=== PATIENT | female | born 1975 | race African-American/Black ===

== ENCOUNTER 2017-08-19 08:57 | Emergency (ER) | payer MEDICAID, SELFPAY ==
[~2017-08-19] VITALS: Ht 172.7 cm; Wt 88.5 kg
[~2017-08-19 08:57] MED LIST: IBUPROFEN600 MG ORAL; NKM
[2017-08-19 09:02] VITALS: BP 149/105
[2017-08-19] MEDS ORDERED: ADULT WAL-100 MG/5 M ORAL (09:31)
[2017-08-19 09:36] VITALS: BP 149/105
--- NOTE | 2017-08-26 01:08 | Emergency Room Report ---
History of Present Illness General Chief Complaint: Flu Like Symptoms Source: Patient Present Illness HPI Patient is a 41 yo female who presented after several days of nonproductive cough and congestion. She reports having intermittent dry cough worse at night , associated with loss of voice and nasal congestion. She report gradual onset and denies any fever or hemoptysis or chest pain. She denies vomiting or diarrhea. Allergies: Coded Allergies: No Known Allergies (Verified Allergy, Mild, 01/17/09) Patient History Past Medical History: see triage record Nursing Documentation-PMH Past Medical History: No Stated History Review of Systems All Other Systems: negative except mentioned in HPI Physical Exam Vital Signs Date Time Temp Pulse Resp B/P (MAP) Pulse Ox O2 Delivery O2 Flow Rate FiO2 08/19/17 09:02 98.6 92 20 149/105 99 Room Air General Appearance: well appearing, no apparent distress, GCS 15 Head: normocephalic, atraumatic Eyes: bilateral eye normal inspection ENT: hearing grossly normal, uvula midline, other - hoarse voice, no stridor Neck: full range of motion, supple Respiratory: no respiratory distress, speaking full sentences Musculoskeletal: no calf tenderness Neurologic: normal gait Psychiatric: mood/affect normal Skin: no rash Medical Decision Making Diagnostic Impression: Primary Impression: Laryngitis with influenza, acute ER Course Patient presented for nonproductive cough. Differential diagnosis included but was not limited to influenza, tracheitis, pertussis, epiglottitis among others. Patient appears to have a benign exam. She appears to have an influenza like illness. She does not appear to require antiviral medications or antibiotics. She was given prescription for cough medications. Last Vital Signs Date Time Temp Pulse Resp B/P (MAP) Pulse Ox O2 Delivery O2 Flow Rate FiO2 08/19/17 09:36 98.6 92 20 149/105 99 Room Air Disposition: HOME, SELF-CARE Condition: Stable Scripts Guaifenesin* (ADULT WAL-TUSSIN*) 100 Mg/5 Ml Liquid 10 ML ORAL Q4H for For Cough, #150 ML Prov: Brandon Mccracken 08/19/17 Patient Instructions: LaryngBrandon Moses Aug 26, 2017 01:08
== END 2017-08-19 09:38 | disposition home or self-care (01) ==
LOC: EMR 09:26
DX: J04.0 Acute laryngitis (principal); J11.1 Influenza due to unidentified influenza virus with other respiratory manifestations
CPT/HCPCS: 99283

== ENCOUNTER 2018-09-24 15:18 | Emergency (ER) | payer MEDICAID ==
[~2018-09-24] VITALS: Ht 167.6 cm; Wt 88.5 kg
[~2018-09-24 15:18] MED LIST changes: +ADULT WAL-100 MG/5 M ORAL
[2018-09-24] MEDS ORDERED: LEXAPRO10 MG ORAL (15:32)
--- NOTE | 2018-09-24 15:32 | NUR ---
ED Nurse Note: A/OX4. AMBULATED IN TO ER DUE TO CONSTIPATION. LAST BM WAS TODAY-SMALL AND HARD STOOL. DENIES BLOODY STOOL. PT STATES THAT SHE IS DRINKING ENOUGH WATER AND ATTEMPTED TO RELIEVE SYMPTOMS WITH ENEMA BUT DID NOT HELP.
[2018-09-24 15:35] VITALS: BP 137/94
[2018-09-24] MEDS ORDERED: Lactulose 20gm/30ml UDC ORAL ONE (16:00)
[2018-09-24] MEDS ORDERED: Magnesium Citrate Liq Btl ORAL ONE (16:00)
--- NOTE | 2018-09-24 17:20 | NUR ---
ED Nurse Note: PER PT, SHE HAS NOT HAVE BOWEL MOVEMENT YET BUT WANTS TO BE DISCHARGED WITH PRESCRIPTIONS. NOTIFIED MEIR NIEVES.
--- NOTE | 2018-09-24 17:27 | Emergency Room Report ---
History of Present Illness General Chief Complaint: Constipation Source: Patient Present Illness Allergies: Coded Allergies: No Known Allergies (Verified Allergy, Mild, 01/17/09) Patient History Last Menstrual Period: unknown Nursing Documentation-[facility] Past Medical History: No History, Except For History Of Psychiatric Problem: Yes - anxiety, depression Physical Exam Vital Signs Date Time Temp Pulse Resp B/P (MAP) Pulse Ox O2 Delivery O2 Flow Rate FiO2 09/24/18 15:29 99.0 94 16 137/94 97 Room Air Medical Decision Making PA Attestation Dr. Mccracken is my supervising Physician whom patient management has been discussed with. Diagnostic Impression: Primary Impression: Constipation Qualified Codes: K59.00 - Constipation, unspecified ER Course abdominal pain Last Vital Signs Date Time Temp Pulse Resp B/P (MAP) Pulse Ox O2 Delivery O2 Flow Rate FiO2 09/24/18 15:35 99.0 94 16 137/94 97 Room Air Disposition: HOME, SELF-CARE Condition: Stable Departure Forms: Return to Work Return to Work Date: Sep 29, 2018 Work Restrictions: None Other Restrictions: May return Sooner if Symptoms have resolved. Return to Full Activity: Sep 24, 2018 Patient Instructions: Constipation, Adult Additional Instructions: Take medications as directed. Follow up with a Primary Care Provider in 72 hours, even if your symptoms have resolved. --Please review list of primary care clinics, if you do not already have a primary care provider Return sooner to ED if new symptoms occur, or current symptoms become worse. - Please note that this Emergency Department Report was dictated using Lixto Softwareuser experience manager technology software, occasionally this can lead to erroneous entry secondary to interpretation by the dictation equipment. Tracey Hart Sep 24, 2018 17:27
[2018-09-24] MEDS ORDERED: SIMETHICONE80 MG ORAL (17:31)
[2018-09-24] MEDS ORDERED: FLEET ENEMA133 ML RECTAL (17:31)
[2018-09-24] MEDS ORDERED: LACTULOSE20 GM/301 ORAL (17:31)
[2018-09-24 17:42] VITALS: BP 137/94
--- NOTE | 2018-09-24 17:43 | NUR ---
ER Nurse Note: A/OX4. PT IS CLEARED BY MEIR NIEVES. DC INSTRUCTION AND PRESCRIPTIONS GIVEN, PT VERBALIZED UNDERSTSANDING. IV/ID WRISTBAND REMOVED. ALL BELONGINGS TAKEN BY PT. DENIES ANY PAIN AT THIS TIME. PT AMBULATED OUT OF ER WITH STEADY GAIT.
== END 2018-09-24 17:45 | disposition home or self-care (01) ==
LOC: EMR 17:00
DX: K59.00 Constipation, unspecified (principal); F41.9 Anxiety disorder, unspecified; F32.9 Major depressive disorder, single episode, unspecified
CPT/HCPCS: 99282

== ENCOUNTER 2019-01-06 12:34 | Emergency (ER) | payer MEDICAID ==
[~2019-01-06] VITALS: Ht 172.7 cm; Wt 90.7 kg
[~2019-01-06 12:34] MED LIST changes: +FLEET ENEMA133 ML RECTAL; +LACTULOSE20 GM/301 ORAL; +LEXAPRO10 MG ORAL; +SIMETHICONE80 MG ORAL
[2019-01-06 12:40] VITALS: BP 149/90
--- NOTE | 2019-01-06 12:40 | NUR ---
ED Nurse Note: Patient walked in to ER c/o severe headache 05/19 with high BP. Pt's systolic was 145 and per pt, that is abnormally high for her. pt aao x4 and ambulatory. calm and cooperative. skin clean and intact. pt is on gown and gambling monitor.
[2019-01-06] MEDS ORDERED: Morphine Sulfate 4mg/ml Inj (IV USE ONLY) IVP ONE (13:00)
[2019-01-06] MEDS ORDERED: DiphenhydrAMINE 50mg/ml Inj IVP ONE (13:00)
[2019-01-06] MEDS ORDERED: Ketorolac 30mg Inj IV ONE (13:00)
--- NOTE | 2019-01-06 13:00 | NUR ---
ED Nurse Note: pt ambulated to bathroom with steady gait.
--- NOTE | 2019-01-06 13:30 | Emergency Room Report ---
History of Present Illness General Chief Complaint: Headache Source: Patient Present Illness HPI Patient has a history of hypertension which is managed by diet. Patient developed mild onset of headache which progressively became worse last night around 2:00 in the morning. Then progressively became worse. Patient states that the headache is intense sensation around her head bilateral around the caodaism areas. It is associate with some nausea but no vomiting. Denies any diarrhea. Denies any fevers or chills. Patient denies any neck stiffness. Patient states that she has not had a prior work-up before. And this headache is worse than usual. She will get headaches in the past but would never last this long. Symptoms again noted to be moderate to high at a severe. Patient also states that she feels that her blood pressure is elevated. No other modifying factors. No other associated signs and symptoms. No other complaints were noted. Allergies: Coded Allergies: No Known Allergies (Verified Allergy, Mild, 01/17/09) Patient History Past Medical History: HTN Past Surgical History: none Pertinent Family History: none Social History: Denies: smoking, alcohol use, drug use Last Menstrual Period: 12/2018 Now: No Reviewed Nursing Documentation: PMH: Agreed; PSxH: Agreed Nursing Documentation-PMH Past Medical History: No History, Except For Hx Hypertension: Yes Review of Systems All Other Systems: negative except mentioned in HPI Physical Exam Vital Signs Date Time Temp Pulse Resp B/P (MAP) Pulse Ox O2 Delivery O2 Flow Rate FiO2 01/06/19 12:40 98.4 96 20 142/99 (113) 97 Room Air Sp02 EP Interpretation: reviewed, normal General Appearance: alert, moderate distress Head: atraumatic Eyes: bilateral eye normal inspection ENT: normal ENT inspection, hearing grossly normal, normal voice Neck: normal inspection, full range of motion, supple, no bony tend Respiratory: normal inspection, lungs clear, normal breath sounds, no respiratory distress, no retraction, no wheezing Cardiovascular #1: regular rate, rhythm, no edema Gastrointestinal: normal inspection, normal bowel sounds, non tender, soft, no guarding, no hernia Genitourinary: no CVA tenderness Musculoskeletal: normal inspection, back normal, normal range of motion Neurologic: normal inspection, alert, responsive, speech normal Psychiatric: normal inspection, judgement/insight normal, anxious Skin: normal inspection, normal color, no rash Medical Decision Making Diagnostic Impression: Primary Impression: Headache Additional Impression: Hypertension ER Course Patient presents to the emergency department today complaint of acute onset severe headache that is different than usual. Differential diagnoses include acute intracranial injury, hypertensive emergency, hypertensive urgency just name a few. Given the severity of the patient's presentation I felt this is a highly complex patient. This patient required extensive workup. Head CT was performed because of patient's headache that was atypical. This was not patient's usual headache. Patient's never had any prior work-up before furthermore headache was associated hypertension there is concern for intracranial injury. Because of this a head CT was performed. Head CT was noted be negative. Patient was given pain medication with significant improvement in symptoms. There have feel the patient be discharged home. Patient is advised to follow up with primary doctor in 2-3 days and return the emergency room for any worsening symptoms and as needed. Labs Test 01/06/19 13:10 White Blood Count 4.3 K/UL (4.8-10.8) Red Blood Count 4.34 M/UL (4.20-5.40) Hemoglobin 11.4 G/DL (12.0-16.0) Hematocrit 37.0 % (37.0-47.0) Mean Corpuscular Volume 85 FL (80-99) Mean Corpuscular Hemoglobin 26.4 PG (27.0-31.0) Mean Corpuscular Hemoglobin Concent 31.0 G/DL (32.0-36.0) Red Cell Distribution Width 13.1 % (11.6-14.8) Platelet Count 321 K/UL (150-450) Mean Platelet Volume 6.6 FL (6.5-10.1) Neutrophils (%) (Auto) 42.1 % (45.0-75.0) Lymphocytes (%) (Auto) 44.9 % (20.0-45.0) Monocytes (%) (Auto) 10.4 % (1.0-10.0) Eosinophils (%) (Auto) 1.1 % (0.0-3.0) Basophils (%) (Auto) 1.4 % (0.0-2.0) Urine HCG, Qualitative Negative (NEGATIVE) Sodium Level 138 MMOL/L (136-145) Potassium Level 3.6 MMOL/L (3.5-5.1) Chloride Level 104 MMOL/L (98-107) Carbon Dioxide Level 29 MMOL/L (21-32) Anion Gap 5 mmol/L (5-15) Blood Urea Nitrogen 10 mg/dL (7-18) Creatinine 0.8 MG/DL (0.55-1.30) Estimat Glomerular Filtration Rate > 60 mL/min (>60) Glucose Level 94 MG/DL (74-106) Calcium Level 9.0 MG/DL (8.5-10.1) Total Bilirubin 0.5 MG/DL (0.2-1.0) Aspartate Amino Transf (AST/SGOT) 25 U/L (15-37) Alanine Aminotransferase (ALT/SGPT) 32 U/L (12-78) Alkaline Phosphatase 75 U/L (46-116) Total Protein 8.2 G/DL (6.4-8.2) Albumin 3.5 G/DL (3.4-5.0) Globulin 4.7 g/dL Albumin/Globulin Ratio 0.7 (1.0-2.7) CT/MRI/US Diagnostic Results CT/MRI/US Diagnostic Results : Imaging Test Ordered: Head CT: Negative Last Vital Signs Date Time Temp Pulse Resp B/P (MAP) Pulse Ox O2 Delivery O2 Flow Rate FiO2 01/06/19 12:40 98.4 96 20 142/99 (113) 97 Room Air Status: improved Disposition: HOME, SELF-CARE Condition: Stable Scripts Ibuprofen* (MOTRIN*) 600 Mg Tablet 600 MG ORAL Q8H PRN for For Pain, #20 TAB 0 Refills Prov: Delvin Rodarte MD 01/06/19 Hydrocodone Bit/Acetaminophen 5-325* (NORCO 5-325*) 1 Each Tablet 1 TAB ORAL Q6H PRN for For Pain, #20 TAB 0 Refills Prov: Delvin Rodarte MD 01/06/19 Delvin Rodarte MD January 06, 2019 13:30
--- NOTE | 2019-01-06 13:30 | NUR ---
ED Nurse Note: pt went down for CT in stable condition.
--- NOTE | 2019-01-06 13:44 | NUR ---
ED Nurse Note: pt came back from CT in stable condition.
[2019-01-06 13:54] LABS: BASOPHILS % (AUTO) 1.4 % (0.0-2.0); EOSINOPHILS % (AUTO) 1.1 % (0.0-3.0); HEMOGLOBIN 11.4 G/DL (12.0-16.0); LYMPHOCYTES % (AUTO) 44.9 % (20.0-45.0); MEAN CORPUSCULAR VOLUME 85 FL (80-99); MONOCYTES % (AUTO) 10.4 % (1.0-10.0); NEUTROPHILS % (AUTO) 42.1 % (45.0-75.0); PLATELET COUNT 321 K/UL (150-450); RED BLOOD COUNT 4.34 M/UL (4.20-5.40); RED CELL DISTRIBUTION WIDTH 13.1 % (11.6-14.8); WHITE BLOOD COUNT 4.3 K/UL (4.8-10.8)
--- NOTE | 2019-01-06 14:02 | Diagnostic Imaging Report ---
Indications: Headache Technique: Spiral acquisitions obtained through the brain. Angled axial and coronal 5 x 5 mm slices were reconstructed. Total dose length product 1390.16 mGycm. CTDI vol(s) 70.38 mGy. Dose reduction achieved using automated exposure control Comparison: None. Findings: No acute intracranial hemorrhage or edema. No mass effect nor midline shift. Normal parisi-white differentiation. Normal-sized ventricles and extra axial CSF spaces. There is minimal periventricular deep white matter low-attenuation, likely chronic microvascular ischemic changes. Visualized orbits are unremarkable. There is ethmoid and sphenoid sinus disease. The mastoids are clear Impression: Negative for acute intracranial bleed or mass effect Minimal periventricular deep white matter low-attenuation, likely chronic microvascular ischemic change The CT scanner at [facility] is accredited by the [employer] and the scans are performed using protocols designed to limit radiation exposure to as low as reasonably achievable to attain images of sufficient resolution adequate for diagnostic evaluation.
[2019-01-06 14:17] LABS: ANION GAP 5 mmol/L (5-15); BLOOD UREA NITROGEN 10 mg/dL (7-18); CARBON DIOXIDE 29 MMOL/L (21-32); CHLORIDE 104 MMOL/L (98-107); CREATININE 0.8 MG/DL (0.55-1.30); POTASSIUM 3.6 MMOL/L (3.5-5.1); SODIUM 138 MMOL/L (136-145)
[2019-01-06 14:22] LABS: ALANINE AMINOTRANSFERASE 32 U/L (12-78); ALBUMIN 3.5 G/DL (3.4-5.0); ALBUMIN/GLOBULIN RATIO 0.7 (1.0-2.7); ALKALINE PHOSPHATASE 75 U/L (46-116); ASPARTATE AMINO TRANSFERASE 25 U/L (15-37); BILIRUBIN,TOTAL 0.5 MG/DL (0.2-1.0)
[2019-01-06] MEDS ORDERED: NORCO 5-325 TA1 EACH ORAL (14:33)
[2019-01-06] MEDS ORDERED: IBUPROFEN600 MG ORAL (14:34)
[2019-01-06 14:49] VITALS: BP 144/75
--- NOTE | 2019-01-06 14:50 | NUR ---
ER DISCHARGE NOTE: Patient is cleared to be discharged per ERMD, pt is aox4, on room air, with stable vital signs. pt was given dc and prescription instructions, pt was able to verbalize understanding, pt id band and iv site removed without complications. pt is able to ambulate with steady gait. pt took all belongings.
== END 2019-01-06 14:50 | disposition home or self-care (01) ==
LOC: EMR 13:29
DX: R51 Headache (principal); I10 Essential (primary) hypertension
CPT/HCPCS: 36415; 70450; 80053; 81025; 85025; 96374; 96375; 99284; J1200; J1885; J2270

== ENCOUNTER 2019-01-25 08:38 | Emergency (ER) | payer MEDICAID ==
[~2019-01-25] VITALS: Ht 172.7 cm; Wt 92.1 kg
[~2019-01-25 08:38] MED LIST changes: +NORCO 5-325 TA1 EACH ORAL
[2019-01-25 09:00] VITALS: BP 128/91
[2019-01-25] MEDS ORDERED: Gadavist 7.5mMol/7.5ml vial IV PRN (09:45)
--- NOTE | 2019-01-25 09:51 | Emergency Room Report ---
History of Present Illness General Chief Complaint: Earache Source: Patient, Medical Record Present Illness HPI The patient states that about 3 weeks ago she developed a sensation of pulsing in her left ear. She states that the symptoms are ongoing. She states that sounds like her pulse. She denies symptoms in her right ear. She does not believe she is having hearing loss but states she feels like she is hearing more from the right ear rather than the left. She denies headache. She did get seen for this previously and underwent a CT scan of her head which was unremarkable. She denies recent illness. She denies cough or congestion. She denies sore throat. She denies seasonal allergies. She denies vertigo. She denies nausea or vomiting. She denies trauma. She has no other complaints. Allergies: Coded Allergies: No Known Allergies (Verified Allergy, Mild, 01/17/09) Patient History Past Medical History: see triage record, HTN Social History: Denies: smoking, alcohol use, drug use Last Menstrual Period: 01/23/19 Reviewed Nursing Documentation: PMH: Agreed; PSxH: Agreed Nursing Documentation-PMH Past Medical History: No History, Except For Hx Hypertension: Yes History Of Psychiatric Problem: Yes - depression Review of Systems All Other Systems: negative except mentioned in HPI Physical Exam Vital Signs Date Time Temp Pulse Resp B/P (MAP) Pulse Ox O2 Delivery O2 Flow Rate FiO2 01/25/19 08:40 98.1 93 18 131/92 (105) 97 Room Air Sp02 EP Interpretation: reviewed, normal General Appearance: no apparent distress, alert, GCS 15, non-toxic Head: normocephalic, atraumatic Eyes: bilateral eye normal inspection, bilateral eye PERRL ENT: hearing grossly normal, normal pharynx, no angioedema, normal voice, TMs + canals normal, moist mucus membranes Neck: full range of motion, supple/symm/no masses Respiratory: no respiratory distress, no retraction, no accessory muscle use, speaking full sentences Cardiovascular #1: regular rate, rhythm, no edema Rectal: deferred Musculoskeletal: back normal, gait/station normal, normal range of motion, non- tender Neurologic: alert, oriented x3, responsive, motor strength/tone normal, sensory intact, speech normal Psychiatric: judgement/insight normal, memory normal, mood/affect normal, no suicidal/homicidal ideation Skin: normal color, no rash, warm/dry, well hydrated Medical Decision Making Diagnostic Impression: Primary Impression: Tinnitis Additional Impressions: Arterial bruit Venous hum ER Course This patient has a history consistent with tinnitus versus arterial bruit versus venous hum. The patient has had ongoing symptoms for the past 3 weeks without relief. The patient already under went a CT of the head previously. Given the ongoing symptoms and the pulsatile nature of the symptoms, I am concerned about a vascular etiology. Differential diagnosis is extensive to include an AV fistula, and arterial bruit, a venous hum to name just a few. Therefore, I decided to obtain an MRI/MRA brain to further evaluate and this showed .... Last Vital Signs Date Time Temp Pulse Resp B/P (MAP) Pulse Ox O2 Delivery O2 Flow Rate FiO2 01/25/19 09:00 98.1 92 18 128/91 97 Room Air Referrals: NON PHYSICIAN (PCP) Cherelle Tobias DO Jan 25, 2019 09:50
[2019-01-25 15:00] VITALS: BP 128/91
--- NOTE | 2019-01-25 15:24 | Diagnostic Imaging Report ---
Indication: Pulsatile tinnitus in the left ear Technique: sagittal T1 fast spin echo, axial T1 and T2 FLAIR PROPELLER, axial T2 FS PROPELLER,, coronal T2 FSE, T2* GRE, axial diffusion weighted images, post contrast axial and coronal T1 FLAIR PROPELLER images. ADC and exponential ADC maps generated Comparison: Reference made to head CT dated 01/06/2019 Findings: Empty sella incidentally noted.. No abnormal areas of restricted diffusion to suggest acute infarction. No acute hemorrhage or edema. No mass effect nor midline shift. No abnormal contrast enhancement. Normal size ventricles and extra axial CSF spaces. Visualized orbits and sinuses are unremarkable. . Impression: Negative
--- NOTE | 2019-01-25 15:29 | Diagnostic Imaging Report ---
Indications: Left ear pulsatile tinnitus Technique: 3D [id number] images obtained through the big sandy of [place]. MIP reconstructions were generated in multiple rotational projections Comparison: none Findings: Normal caliber distal internal carotid arteries. No evidence of carotid canal stenosis is demonstrated. No abnormal vasculature to suggest vascular malformation demonstrated. Normal caliber bilateral M1 segments, proximal M2 branches, A1 segments. Asymmetric A2 segments, with a dominant single midline A2 segment and a smaller left A2 segment. Patent anterior to indicating artery. Codominant patent distal vertebral arteries. Patent nonstenotic basilar artery. Patent bilateral superior cerebellar arteries, PICA is, P1 segments and proximal posterior cerebral artery branches. Large patent right posterior to indicating artery is demonstrated. Questionable patency of the left posterior commuting artery. Patent ophthalmic arteries. Impression: Essentially unremarkable, no evidence of significant cervical vascular insufficiency. No findings to suggest etiology of stated clinical history of pulsatile tinnitus demonstrated. Variant big sandy of [place] and anterior cerebral artery anatomy as described
--- NOTE | 2019-01-25 15:37 | Diagnostic Imaging Report ---
Indication: Left ear pulsatile tinnitus Technique: Axial and coronal T1 fast spin echo, axial and coronal T 2 fast spin-echo, axial 3-D FIESTA, post contrast axial and coronal T1 fast spin echo thin slice images through the temporal bones Comparison: Brain MRI of earlier the same day Findings: Normal external auditory canal. Normal middle ear and inner ear structures. Slight high T1 and T2 signal in the petrous apex suppresses on the FIESTA images, presumably represents some fatty marrow within the petrous apex. No contrast enhancing lesion. Unremarkable internal auditory canals. The vascular flow voids are preserved. Empty sella incidentally noted. The optic globes and retrobulbar orbits are unremarkable Impression: Essentially unremarkable exam. No findings demonstrated to suggest etiology of stated clinical history of pulsatile tinnitus.
== END 2019-01-25 14:58 | disposition home or self-care (01) ==
LOC: EMR 09:05
DX: H93.12 Tinnitus, left ear (principal); R09.89 Other specified symptoms and signs involving the circulatory and respiratory systems; I10 Essential (primary) hypertension; F32.9 Major depressive disorder, single episode, unspecified
CPT/HCPCS: 70543; 70544; 70553; 99284; A9585

== ENCOUNTER 2019-04-21 07:58 | Emergency (ER) | payer SELFPAY ==
[~2019-04-21] VITALS: Ht 172.7 cm; Wt 93.0 kg
[2019-04-21 08:17] VITALS: BP 151/99
--- NOTE | 2019-04-21 08:18 | NUR ---
ED Nurse Note: Patient walked in to ER with a son from home due to Lt earache 03/19 which started 3 days ago. pt denied swimming. Patient is alert and oriented x4 and ambulatory. Skin clean and intact. Calm and cooperative. No acute distress noted at this moment.
--- NOTE | 2019-04-21 08:25 | NUR ---
ED Nurse Note: ERMD at bedside.
[2019-04-21] MEDS ORDERED: DEBROX15 M1 BOTH EARS (08:33)
--- NOTE | 2019-04-21 08:33 | Emergency Room Report ---
History of Present Illness General Chief Complaint: Earache Source: Patient Present Illness HPI Disclaimer: Please note that this report is being documented using [employer] technology. This can lead to erroneous entry secondary to incorrect interpretation by the dictating instrument. HPI: 43-year-old otherwise healthy female presents for evaluation of ear pain on the left side. Symptoms have been present for several days. She denies any hearing changes or tinnitus. Denies vertiginous symptoms. She states she often has ear pain but has never lasted this long. Denies any recent swimming or exposure to water. Denies any drainage from the ear. Notes it as a pressure and a throbbing sensation. Denies other symptoms such as fever, chills , nasal congestion, postnasal drip, sore throat, cough, wheezing, vomiting, diarrhea or skin rash. Her son is sick with an upper respiratory illness and she brought him in for evaluation to the emergency department today as well. She states she has had problems with cerumen impaction in the past and has had her ears flushed by her PMD. Does not follow regularly with ENT PMH: Denies PSH: See chart Allergies: See chart Social Hx: Denies Allergies: Coded Allergies: No Known Allergies (Verified Allergy, Mild, 01/17/09) Patient History Last Menstrual Period: 04/12/19 Now: No Nursing Documentation-PMH Past Medical History: No History, Except For Hx Hypertension: Yes History Of Psychiatric Problem: Yes Review of Systems All Other Systems: negative except mentioned in HPI Physical Exam Vital Signs Date Time Temp Pulse Resp B/P (MAP) Pulse Ox O2 Delivery O2 Flow Rate FiO2 04/21/19 08:10 98.2 87 18 151/99 (116) 97 Room Air General: Awake and alert, no acute distress HEENT: NC/AT. EOMI. the external auditory canals are both nonedematous, no erythematous and no purulent drainage. Tympanic membranes are difficult to fully visualize due to significant cerumen in the external canal. The parts that are visible are pearly parisi, nonbulging. No significant unilateral findings. Resp: Normal work of breathing. MSK: Normal tone and bulk. Moving all extremities. No obvious deformity. Neuro: Awake and alert. Mentating appropriately. Medical Decision Making Diagnostic Impression: Primary Impression: Earache symptoms in left ear Additional Impression: Wax in ear ER Course 43-year-old female presents for evaluation of left ear pain and pressure for several days. Tympanic members do not show signs of obvious acute infection. She does have significant cerumen in the external canals and will be prescribed Debrox to clean out the ears. She should follow-up with her PMD who may refer her to an ENT if this persists. No indication for acute antibiotic treatment at this time. She will be discharged home. Last Vital Signs Date Time Temp Pulse Resp B/P (MAP) Pulse Ox O2 Delivery O2 Flow Rate FiO2 04/21/19 08:17 98.2 18 151/99 97 Room Air 04/21/19 08:10 87 Disposition: HOME, SELF-CARE Condition: Stable Scripts Carbamide Peroxide (DEBROX) 15 Ml Drops 5 DROP BOTH EARS TWICE A DAY for 4 Days, ML 0 Refills Prov: Vladimir Abraham MD 04/21/19 Referrals: [facility] Patient Instructions: Earache Additional Instructions: Please use the Debrox kit prescribed to you to remove the excess wax from the outer ears. If your ear pain does not improve after Tylenol and Motrin over the next few days please follow-up with your primary doctor for reevaluation. Return to the emergency department any significant fevers, worsening pain, changes in your hearing or any other sudden changes in your health Vladimir Abraham MD Apr 21, 2019 08:32
[2019-04-21 08:37] VITALS: BP 151/99
--- NOTE | 2019-04-21 08:37 | NUR ---
ED Nurse Note: Pt cleared by health care Provider for discharge. DC instructions/prescription was given and explained to pt and verbalized understanding of teachings. All medical deviecs such as ID band removed. Pt is AAO x4, ambulatory and left with all personal belongings.
== END 2019-04-21 09:00 | disposition home or self-care (01) ==
LOC: EMR 09:00
DX: H61.22 Impacted cerumen, left ear (principal); H92.02 Otalgia, left ear; I10 Essential (primary) hypertension
CPT/HCPCS: 99282

== ENCOUNTER 2020-10-02 09:06 | Inpatient (IN) | payer MEDICAID ==
[~2020-10-02] VITALS: Ht 170.2 cm; Wt 900.8 kg
[~2020-10-02 09:06] MED LIST changes: +DEBROX15 M1 BOTH EARS
--- NOTE | 2020-10-02 09:51 | NUR ---
Patient presented to the ER with c/o back pain which started yesterday morning at 9am and has gotten progressively worse. The pain is not steady but intermittent with ranging pain "5-12 in severity." AAOX4. Independently ambulatory. She has no adverse medical history. NKA. No deficits noted to extremities. " I feel like there is something wrong with my body!"
[2020-10-02 10:03] LABS: APPEARANCE,URINE CLEAR; BASOPHILS % (AUTO) 0.9 % (0.0-2.0); BILIRUBIN, URINE NEGATIVE (NEGATIVE); EOSINOPHILS % (AUTO) 0.3 % (0.0-3.0); GLUCOSE, URINE (UA) NEGATIVE (NEGATIVE); HEMATOCRIT 34.7 % (37.0-47.0); HEMOGLOBIN 10.1 G/DL (12.0-16.0); KETONES,URINE NEGATIVE (NEGATIVE); LEUKOCYTE ESTERASE ,URINE 2+ (NEGATIVE); MEAN CORPUSCULAR VOLUME 81 FL (80-99); MONOCYTES % (AUTO) 8.7 % (1.0-10.0); NEUTROPHILS % (AUTO) 71.1 % (45.0-75.0); NITRITE,URINE NEGATIVE (NEGATIVE); PH,URINE 6 (4.5-8.0); PLATELET COUNT 402 K/UL (150-450); PROTEIN,URINE 1+ (NEGATIVE); RED BLOOD COUNT 4.29 M/UL (4.20-5.40); RED CELL DISTRIBUTION WIDTH 15.4 % (11.6-14.8); UROBILINOGEN,URINE NORMAL MG/DL (0.0-1.0); WHITE BLOOD COUNT 9.8 K/UL (4.8-10.8)
[2020-10-02 10:06] LABS: COLOR,URINE YELLOW
[2020-10-02 10:08] LABS: ANION GAP 8 mmol/L (5-15); BLOOD UREA NITROGEN 11 mg/dL (7-18); CALCIUM 8.7 MG/DL (8.5-10.1); CARBON DIOXIDE 25 MMOL/L (21-32); CHLORIDE 107 MMOL/L (98-107); CREATININE 0.8 MG/DL (0.55-1.30); POTASSIUM 3.9 MMOL/L (3.5-5.1); SODIUM 140 MMOL/L (136-145)
[2020-10-02 10:33] LABS: ALANINE AMINOTRANSFERASE 20 U/L (12-78); ALBUMIN 3.4 G/DL (3.4-5.0); ALBUMIN/GLOBULIN RATIO 0.7 (1.0-2.7); ALKALINE PHOSPHATASE 88 U/L (46-116); ASPARTATE AMINO TRANSFERASE 25 U/L (15-37); BILIRUBIN,TOTAL 0.5 MG/DL (0.2-1.0); CKMB < 0.5 NG/ML (0.0-3.6); CREATINE KINASE 223 U/L (26-308); FERRITIN 6 NG/ML (8-388); LACTATE DEHYDROGENASE 270 U/L (81-234)
[2020-10-02] MEDS ORDERED: Acetaminophen 500mg (ES) tab ORAL ONE (11:00)
[2020-10-02] MEDS ORDERED: Omnipaque 350 100ml vial INJ PRN (11:15)
[2020-10-02 11:43] VITALS: BP 145/94
--- NOTE | 2020-10-02 12:16 | NUR ---
Patient returned from CT to room
[2020-10-02 12:41] VITALS: BP 150/69
--- NOTE | 2020-10-02 12:42 | NUR ---
pt in bed. on bus driver/monitor. pt verbalizes she is feeling better,"still has a little bit of pain but the medication has really helped."
--- NOTE | 2020-10-02 12:51 | Diagnostic Imaging Report ---
EXAM: CT CTA Chest w Contrast CLINICAL HISTORY: Chest pain. TECHNIQUE: CT angiogram of the pulmonary vasculature performed with IV contrast. 2-D and 3-D reformat images obtained. All CT scans at this facility are performed using dose modulation techniques as appropriate to a performed exam including the following: automated exposure control with adjustment of the mA and/or kV according to patient size. RADIATION DOSE: CTDIvol: 50.9 mGy DLP: 405.2 mGy-cm Dose information generated by the CT scanner is available in PACS. COMPARISON: None FINDINGS: There is adequate opacification of the pulmonary vascularity. There is no central filling defects or thrombus identified. There is a filling defect noted within a subsegmental branch of the left lower lobe consistent with a focal peripheral pulmonary embolus. There is no evidence of right heart strain. RVT LV ratio is within normal limits. The aorta is normal in caliber and there is no intimal flap or dissection. There is no mediastinal mass or adenopathy. Dependent infiltrates noted in the left lower lobe with a tiny left effusion. There is also some mild dependent alveolar densities right lung base. Limited views of the upper abdomen appear unremarkable. There is no acute osseous abnormality noted. IMPRESSION: STUDY POSITIVE FOR PULMONARY EMBOLUS IN A SUBSEGMENTAL BRANCH OF THE LEFT LOWER LOBE. DEPENDENT INFILTRATES LEFT LUNG BASE WITH TINY LEFT EFFUSION. ALSO MILD INFLAMMATORY CHANGES POSTERIOR RIGHT LUNG BASE. FINDINGS DISCUSSED WITH ED PHYSICIAN. 10/02/2020 AT 12:40 PM
[2020-10-02] MEDS: Enoxaparin 100mg Inj SUBQ SCH ×2 (13:00→21:11)
[2020-10-02] MEDS ORDERED: cefTRIAXone 1 GM in NS 55 ML IVPB ONE (13:00)
[2020-10-02] MEDS ORDERED: Azithromycin 250mg tab ORAL ONE (13:00)
--- NOTE | 2020-10-02 13:37 | Diagnostic Imaging Report ---
Procedure: XRAY Chest 1v Reason for study: Reason For Exam: SOB Comparison films: 10/02/2020. FINDINGS: There is limited inspiration with low lung volumes. Vascularity is normal. Bibasilar densities either atelectasis versus infiltrates. Cardiac and mediastinal silhouette are within normal limits. CP angles are sharp. The bony thorax appear unremarkable. IMPRESSION: Limited inspiration with low lung volumes. Basilar atelectasis versus infiltrates.
--- NOTE | 2020-10-02 13:38 | Diagnostic Imaging Report ---
Procedure: XRAY Chest 1v Reason for study: Reason For Exam: SOB Comparison films: 05/02/2014. FINDINGS: A single one view chest is obtained. Vascularity is normal. Mild hazy densities in the lung bases other atelectasis or infiltrates. Cardiac and mediastinal silhouette are within normal limits. CP angles are sharp. The bony thorax appear unremarkable. IMPRESSION: Mild hazy atelectasis versus infiltrates in the lung bases.
[2020-10-02 13:53] VITALS: BP 131/89
--- NOTE | 2020-10-02 14:29 | Emergency Room Report ---
History of Present Illness General Chief Complaint: Dyspnea/Respdistress Source: Patient Present Illness HPI This patient states that for the past 3 days she has had difficulty breathing. She also has had pain in her left upper abdomen. She states the pain is worse with a deep breath. She states she feels like she cannot take a deep breath. She also states that she has body aches and chills. She has had some cough and congestion. She denies dysuria or hematuria. She denies headache or neck pain. She has no other complaints. 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 Patient History Past Medical History: see triage record, HTN Social History: Denies: smoking, alcohol use, drug use Reviewed Nursing Documentation: PMH: Agreed; PSxH: Agreed Nursing Documentation-PMH Past Medical History: No History, Except For Hx Hypertension: Yes Review of Systems All Other Systems: negative except mentioned in HPI Physical Exam Vital Signs Date Time Temp Pulse Resp B/P (MAP) Pulse Ox O2 Delivery O2 Flow Rate FiO2 10/02/20 09:10 100.9 118 21 139/84 (102) 97 Room Air 10/02/20 10:54 100 Sp02 EP Interpretation: reviewed, normal General Appearance: no apparent distress, alert, GCS 15, non-toxic Head: normocephalic, atraumatic Eyes: bilateral eye normal inspection, bilateral eye PERRL ENT: hearing grossly normal, normal pharynx, no angioedema, normal voice Neck: full range of motion, supple/symm/no masses Respiratory: chest non-tender, lungs clear, normal breath sounds, no respiratory distress, no retraction, no accessory muscle use, speaking full sent ences Cardiovascular #1: regular rate, rhythm, no edema Gastrointestinal: normal bowel sounds, non tender, soft, non-distended, no guarding, no rebound Rectal: deferred Musculoskeletal: back normal, normal range of motion, gait/station normal, non- tender Neurologic: alert, motor strength/tone normal, oriented x3, sensory intact, responsive, speech normal Psychiatric: judgement/insight normal, memory normal, mood/affect normal, no suicidal/homicidal ideation Skin: no rash, normal color Medical Decision Making Diagnostic Impression: Primary Impression: Pneumonia Additional Impressions: Pulmonary embolism Fever ER Course This patient was having difficulty taking a deep breath. The chest x-ray for this patient was difficult to evaluate getting secondary to the patient's inability to take a deep inspiration. Patient presents during the COVID-19 pandemic. Patient's laboratory work-up was concerning for possible COVID-19 infection despite the antigen test being negative. This antigen test is notoriously inaccurate. CT of the chest was obtained and the classic Covid groundglass opacities were not identified on CT. However, the patient was found to have a consolidation that is more consistent with a bacterial infection. She is also found to have a sub-segmental PE. This was not causing any right heart strain or hypoxemia. I did give the patient weight-based Lovenox in the emerg ency department. The patient was also given broad-spectrum antibiotics. The patient could still have COVID-19 infection. The patient is admitted for further evaluation and treatment by pulmonology and internal medicine. This patient was evaluated in the context of the global COVID-19 pandemic, which necessitated consideration that the patient might be at risk for infection with the [id number] virus that causes COVID-19. Institutional protocols and algorithms that pertain to the evaluation of patients at risk for COVID-19 and the state of rapid change based on information released by multiple regulatory bodies including the CDC and federal and state organizations. These policies and algorithms were followed during the patient's care in the ED. Laboratory Tests Test 10/02/20 09:45 10/02/20 10:10 White Blood Count 9.8 K/UL (4.8-10.8) Red Blood Count 4.29 M/UL (4.20-5.40) Hemoglobin 10.1 G/DL (12.0-16.0) L Hematocrit 34.7 % (37.0-47.0) L Mean Corpuscular Volume 81 FL (80-99) Mean Corpuscular Hemoglobin 23.6 PG (27.0-31.0) L Mean Corpuscular Hemoglobin Concent 29.2 G/DL (32.0-36.0) L Red Cell Distribution Width 15.4 % (11.6-14.8) H Platelet Count 402 K/UL (150-450) Mean Platelet Volume 6.8 FL (6.5-10.1) Neutrophils (%) (Auto) 71.1 % (45.0-75.0) Lymphocytes (%) (Auto) 19.0 % (20.0-45.0) L Monocytes (%) (Auto) 8.7 % (1.0-10.0) Eosinophils (%) (Auto) 0.3 % (0.0-3.0) Basophils (%) (Auto) 0.9 % (0.0-2.0) Urine Color Yellow Urine Appearance Clear Urine pH 6 (4.5-8.0) Urine Specific [place] 1.015 (1.005-1.035) Urine Protein 1+ (NEGATIVE) H Urine Glucose (UA) Negative (NEGATIVE) Urine Ketones Negative (NEGATIVE) Urine Blood 4+ (NEGATIVE) H Urine Nitrite Negative (NEGATIVE) Urine Bilirubin Negative (NEGATIVE) Urine Urobilinogen Normal MG/DL (0.0-1.0) Urine Leukocyte Esterase 2+ (NEGATIVE) H Urine RBC 2-4 /HPF (0 - 2) H Urine WBC 2-4 /HPF (0 - 2) Urine Squamous Epithelial Cells Few /LPF (NONE/OCC) Urine Bacteria Few /HPF (NONE) Sodium Level 140 MMOL/L (136-145) Potassium Level 3.9 MMOL/L (3.5-5.1) Chloride Level 107 MMOL/L (98-107) Carbon Dioxide Level 25 MMOL/L (21-32) Anion Gap 8 mmol/L (5-15) Blood Urea Nitrogen 11 mg/dL (7-18) Creatinine 0.8 MG/DL (0.55-1.30) Estimated Glomerular Filtration Rate > 60 mL/min (>60) Glucose Level 91 MG/DL (74-106) Calcium Level 8.7 MG/DL (8.5-10.1) Ferritin 6 NG/ML (8-388) L Total Bilirubin 0.5 MG/DL (0.2-1.0) Aspartate Amino Transferase (AST) 25 U/L (15-37) Alanine Aminotransferase (ALT) 20 U/L (12-78) Alkaline Phosphatase 88 U/L (46-116) Lactate Dehydrogenase 270 U/L (81-234) H Total Creatine Kinase 223 U/L (26-308) Creatine Kinase MB < 0.5 NG/ML (0.0-3.6) Creatine Kinase MB Relative Index 0.2 Troponin I 0.000 ng/mL (0.000-0.056) C-Reactive Protein, Quantitative 3.9 mg/dL (0.00-0.90) H Pro-B-Type Natriuretic Peptide 79 pg/mL (0-125) Total Protein 8.5 G/DL (6.4-8.2) H Albumin 3.4 G/DL (3.4-5.0) Globulin 5.1 g/dL Albumin/Globulin Ratio 0.7 (1.0-2.7) L Lipase 139 U/L (73-393) Prothrombin Time 11.3 SEC (9.30-11.50) Prothrombin Time INR 1.0 (0.9-1.1) Activated Partial Thromboplast Time 26 SEC (23-33) D-Dimer 1.33 mg/L FEU (0.00-0.49) H Lactic Acid Level 1.20 mmol/L (0.4-2.0) Microbiology Date/Time Source Procedure Growth Status 10/02/20 09:45 Nasopharynx SARS-CoV-2 Antigen (Rapid)(SIDDHARTH) - Final Complete EKG Diagnostic Results Rate: normal Rhythm: NSR ST Segments: no acute changes Rhythm Strip Diag. Results EP Interpretation: yes Rate: 90's Rhythm: NSR, no PVC's, no ectopy Chest X-Ray Diagnostic Results Chest X-Ray Diagnostic Results : Chest X-Ray Ordered: Yes # of Views/Limited/Complete: 1 View Indication: Shortness of Breath EP Interpretation: Yes Interpretation: no consolidation, no acute cardiopulmonary disease, other - Limited by poor inspiration. Impression: No acute disease Electronically Signed by: Cherelle Tobias DO CT/MRI/US Diagnostic Results CT/MRI/US Diagnostic Results : Imaging Test Ordered: CT chest Impression STUDY POSITIVE FOR PULMONARY EMBOLUS IN A SUBSEGMENTAL BRANCH OF THE LEFT LOWER LOBE. DEPENDENT INFILTRATES LEFT LUNG BASE WITH TINY LEFT EFFUSION. ALSO MILD INFLAMMATORY CHANGES POSTERIOR RIGHT LUNG BASE. FINDINGS DISCUSSED WITH ED PHYSICIAN. 10/02/2020 AT 12:40 PM Last Vital Signs Date Time Temp Pulse Resp B/P (MAP) Pulse Ox O2 Delivery O2 Flow Rate FiO2 10/02/20 13:53 89 18 131/89 100 Room Air 10/02/20 13:34 99.7 10/02/20 10:54 100 Disposition: ADMITTED INPATIENT Condition: Serious Referrals: [facility],REFERRING (PCP) Cherelle Tobias DO Oct 02, 2020 14:28
[2020-10-02] MEDS ORDERED: Morphine Sulfate 4mg/ml Inj (IV USE ONLY) IVP ONE (15:15)
--- NOTE | 2020-10-02 15:23 | NUR ---
pt medicated for L sided abd pain. pt states "it feels like its coming from my lung." pt in private room, on patient monitor and continuous O2 monitor. pt resting in bed. VSS. pt calm & cooperative. will continue to monitor.
--- NOTE | 2020-10-02 16:00 | NUR ---
pt in room on monitor. pt states she is not in pain at the moment. pt calm & cooperative. will continue to monitor. 1700: pt in room. on monitor. VSS. 1829: pt given dinner tray. pt ambulatory to restroom. pt given fluids. pt calm & cooperative. will continue to monitor. 1929: pt states she is in pain on the L side. notified, verbalized to put in medication for pt.
[2020-10-02 16:39] VITALS: BP 141/93
--- NOTE | 2020-10-02 16:50 | Consultation ---
Consult Note Consult Note DATE OF CONSULTATION: 10/02/2020 CONSULTING PHYSICIAN: Syd Rodney MD. REASON FOR CONSULTATION: Respiratory distress, pulmonary embolism HISTORY OF PRESENT ILLNESS: This is a 44-year-old female with past medical history of hypertension who presented to the ED for evaluation of respiratory distress x3 days. She reports pain in the left upper abdomen that is dull in nature, worse with inspiration. She denies fever, cough, congestion, dysuria, hematuria, headache, neck pain. She denies recent travel, oral contraceptive use, history of cancer, or recent knee or hip surgery. She does report history of smoking every night. Chest x-ray demonstrated mild hazy atelectasis versus infiltrates in the lung bases. Patient tested negative for COVID-19 via rapid antigen test. However, a COVID-19 PCR was ordered to confirm. CT angio of chest was positive for pulmonary embolus in the subsegmental branch of the left lower lobe with dependent infiltrates in the left lung base with tiny left effusion. Patient was started on weight-based full dose Lovenox. Patient received broad- spectrum antibiotics in ER and is awaiting admission. PAST MEDICAL HISTORY: Hypertension MEDICATIONS: Lexapro ALLERGIES: No known allergies FAMILY HISTORY: Reports family history of coagulopathy in her mother PERSONAL/SOCIAL HISTORY: Reports smoking, denies alcohol use or drug use REVIEW OF SYSTEMS: Negative except mentioned in HPI PHYSICAL EXAMINATION: VITAL SIGNS: Blood pressure 131/89, heart rate 89, respiratory rate 18, weight 90 kg, height 172 cm. General: Patient laying in bed, NAD, normal work of breathing on room air HEENT: Head exam reveals that the head is normocephalic, atraumatic without deformity or unusual swelling. Pupils are PERRLA. CHEST AND LUNGS: Reveals clear, normal, symmetrical breath sounds with no adventitious sounds. CARDIOVASCULAR: Reveals normal S1, S2 without murmurs, rubs, or clicks. ABDOMEN: Soft with no tenderness or organomegaly. RECTAL: Deferred. MUSCULOSKELETAL: There is no tenderness to palpation. Range of motion is normal. NEUROLOGICAL: Alert and oriented x3 , nonfocal LABORATORY DATA: Laboratory testing shows hemoglobin 10.1, hematocrit 34.7 Chemistries show ferritin 6, LDH 270, CRP 3.9 D-dimer 1.33 Assessment/Plan 1. Pulmonary embolus - continue full dose Lovenox - Provide supplemental oxygen as needed - Plan to add Coumadin at a later date 2. Infiltrates vs atelectasis - COVID-19 antigen negative (10/02) - repeat COVID-19 PCR ordered (10/02) - Normoxemia, and normal WBC- we can observe off abx 3. Hypertension - BP control The care for this patient was discussed with my supervising physician. Time spent for this case was approximately 31 minutes. Christopher Ho Oct 02, 2020 16:50
[2020-10-02 18:14] VITALS: BP 134/78
--- NOTE | 2020-10-02 19:30 | NUR ---
ED Nurse Note: Report given to AIDA Rondon 2nd floor.
--- NOTE | 2020-10-02 19:35 | NUR ---
Unable to transport patient to [facility] due to minor son accompanying the patient. charge nurse and ER doctor aware. Making arrangements for son to go back home safely.
[2020-10-02] MEDS ORDERED: Ketorolac 30mg Inj IV ONE (19:45)
[2020-10-02 20:41] VITALS: BP 119/78
--- NOTE | 2020-10-02 20:51 | NUR ---
ED Nurse Note: Spoke to [employer] dispatch and agreed for assistance to take the pts kid back to home address. Business Continuity Planner #[id number]
--- NOTE | 2020-10-02 21:50 | NUR ---
NURSE NOTES: Pt came to the floor via gurney from ED. Pt is A/O x4 and verbally responsive. Pt is ambulatory and continent of both bowel and bladder. Pt is on RA with no SOB or acute distress noted. No pain noted at this time. Pt states she was given pain mediation in the ER. Pt has a LAC 20 which is saline locked and patent. Pt bed in lowest position and locked with side rails x2. Call light placed within reach. Will get admitting orders from Dr. Johnson.
--- NOTE | 2020-10-02 22:20 | NUR ---
NURSE NOTES: Received admitting orders from Dr. Johnson and Dr. Hobbs which were carried out.
[2020-10-02] MEDS ORDERED: Simethicone 80mg tab ORAL PRN (23:00)
[2020-10-02] MEDS ORDERED: guaiFENesin 100mg/5ml Liq ud ORAL SCH (23:00)
[2020-10-02] MEDS ORDERED: guaiFENesin 100mg/5ml Liq ud ORAL PRN (23:15)
[2020-10-02] MEDS ORDERED: Fleet's Enema 133ml RECTAL PRN (23:15)
[2020-10-03] VITALS: BP 129/68
[2020-10-03 04:00] VITALS: BP 125/67
[2020-10-03] MEDS: HYDROcodone/Acetamin 5/325 tab ORAL PRN ×3 (05:42→18:09)
--- NOTE | 2020-10-03 06:11 | Consultation ---
History of Present Illness General Chief Complaint: Dyspnea/Respdistress Present Illness Allergies: Coded Allergies: No Known Allergies (Verified Allergy, Mild, 01/17/09) Medication History Scheduled Carbamide Peroxide (Debrox), 5 DROP BOTH EARS TWICE A DAY Escitalopram Oxalate* (Lexapro*), 10 MG ORAL DAILY, (Reported) Guaifenesin* (Adult Wal-Tussin*), 10 ML ORAL Q4H Lactulose (Lactulose*), 30 ML ORAL BID Na Phos,M-B/Na Phos,Di-Ba* (Fleet Enema*), 133 ML RECTAL DAILY No Known Medications* (NKM - No Known Medications*), 0 ., (Reported) Scheduled PRN Hydrocodone Bit/Acetaminophen 5-325* ([place]ais[place] 5-325*), 1 TAB ORAL Q6H PRN for For Pain Ibuprofen (Motrin), 600 MG ORAL Q8H PRN for For Pain Ibuprofen (Motrin), 600 MG ORAL Q8H PRN for For Pain Simethicone* (Simethicone*), 80 MG ORAL Q8H PRN for GAS PAIN Patient History Healthcare decision maker Resuscitation status Advanced Directive on File Physical Exam Last 24 Hour Vital Signs Date Time Temp Pulse Resp B/P (MAP) Pulse Ox O2 Delivery O2 Flow Rate FiO2 10/03/20 04:00 87 10/03/20 04:00 98.9 92 20 125/67 (86) 96 10/03/20 00:00 90 10/03/20 00:00 99.2 90 20 129/68 (88) 97 10/02/20 22:00 107 10/02/20 21:56 Room Air 10/02/20 20:41 99.7 95 18 119/78 99 Room Air 10/02/20 18:14 98 20 134/78 100 Room Air 10/02/20 16:39 88 18 141/93 97 Room Air 10/02/20 13:53 89 18 131/89 100 Room Air 10/02/20 13:34 99.7 10/02/20 12:41 99.7 97 18 150/69 100 Room Air 10/02/20 11:43 98 18 145/94 99 Room Air 10/02/20 10:54 18 Room Air 100 10/02/20 09:10 100.9 118 21 139/84 (102) 97 Room Air Intake and Output 10/02/20 10/03/20 19:00 07:00 Intake Total 1350 ml Balance 1350 ml Intake Oral 1200 ml IV Total 150 ml # Voids 3 Laboratory Tests Test 10/02/20 09:45 10/02/20 10:10 White Blood Count 9.8 K/UL (4.8-10.8) Red Blood Count 4.29 M/UL (4.20-5.40) Hemoglobin 10.1 G/DL (12.0-16.0) L Hematocrit 34.7 % (37.0-47.0) L Mean Corpuscular Volume 81 FL (80-99) Mean Corpuscular Hemoglobin 23.6 PG (27.0-31.0) L Mean Corpuscular Hemoglobin Concent 29.2 G/DL (32.0-36.0) L Red Cell Distribution Width 15.4 % (11.6-14.8) H Platelet Count 402 K/UL (150-450) Mean Platelet Volume 6.8 FL (6.5-10.1) Neutrophils (%) (Auto) 71.1 % (45.0-75.0) Lymphocytes (%) (Auto) 19.0 % (20.0-45.0) L Monocytes (%) (Auto) 8.7 % (1.0-10.0) Eosinophils (%) (Auto) 0.3 % (0.0-3.0) Basophils (%) (Auto) 0.9 % (0.0-2.0) Urine Color Yellow Urine Appearance Clear Urine pH 6 (4.5-8.0) Urine Specific [place] 1.015 (1.005-1.035) Urine Protein 1+ (NEGATIVE) H Urine Glucose (UA) Negative (NEGATIVE) Urine Ketones Negative (NEGATIVE) Urine Blood 4+ (NEGATIVE) H Urine Nitrite Negative (NEGATIVE) Urine Bilirubin Negative (NEGATIVE) Urine Urobilinogen Normal MG/DL (0.0-1.0) Urine Leukocyte Esterase 2+ (NEGATIVE) H Urine RBC 2-4 /HPF (0 - 2) H Urine WBC 2-4 /HPF (0 - 2) Urine Squamous Epithelial Cells Few /LPF (NONE/OCC) Urine Bacteria Few /HPF (NONE) Sodium Level 140 MMOL/L (136-145) Potassium Level 3.9 MMOL/L (3.5-5.1) Chloride Level 107 MMOL/L (98-107) Carbon Dioxide Level 25 MMOL/L (21-32) Anion Gap 8 mmol/L (5-15) Blood Urea Nitrogen 11 mg/dL (7-18) Creatinine 0.8 MG/DL (0.55-1.30) Estimat Glomerular Filtration Rate > 60 mL/min (>60) Glucose Level 91 MG/DL (74-106) Calcium Level 8.7 MG/DL (8.5-10.1) Ferritin 6 NG/ML (8-388) L Total Bilirubin 0.5 MG/DL (0.2-1.0) Aspartate Amino Transf (AST/SGOT) 25 U/L (15-37) Alanine Aminotransferase (ALT/SGPT) 20 U/L (12-78) Alkaline Phosphatase 88 U/L (46-116) Lactate Dehydrogenase 270 U/L (81-234) H Total Creatine Kinase 223 U/L (26-308) Creatine Kinase MB < 0.5 NG/ML (0.0-3.6) Creatine Kinase MB Relative Index 0.2 Troponin I 0.000 ng/mL (0.000-0.056) C-Reactive Protein, Quantitative 3.9 mg/dL (0.00-0.90) H Pro-B-Type Natriuretic Peptide 79 pg/mL (0-125) Total Protein 8.5 G/DL (6.4-8.2) H Albumin 3.4 G/DL (3.4-5.0) Globulin 5.1 g/dL Albumin/Globulin Ratio 0.7 (1.0-2.7) L Lipase 139 U/L (73-393) Prothrombin Time 11.3 SEC (9.30-11.50) Prothromb Time International Ratio 1.0 (0.9-1.1) Activated Partial Thromboplast Time 26 SEC (23-33) D-Dimer 1.33 mg/L FEU (0.00-0.49) H Lactic Acid Level 1.20 mmol/L (0.4-2.0) Microbiology Date/Time Source Procedure Growth Status 10/02/20 09:45 Nasopharynx SARS-CoV-2 Antigen (Rapid)(SIDDHARTH) - Final Complete Height (Feet): 5 Height (Inches): 7.00 Weight (Pounds): 1986 Medications Current Medications Medications (Trade) Dose Ordered Sig/Billy Route PRN Reason Start Time Stop Time Status Last Admin Dose Admin Acetaminophen (Tylenol) 650 mg Q4H PRN ORAL Mild Pain (Pain Scale 1-3) 10/02/20 22:45 11/01/20 22:44 Acetaminophen (Tylenol) 650 mg Q4H PRN ORAL Temp >100.5 10/02/20 22:45 11/01/20 22:44 Acetaminophen/ Hydrocodone Bitart ([place] 5/325) 1 tab Q6H PRN ORAL For Pain 10/02/20 23:00 10/09/20 22:59 10/03/20 05:42 Carbamide Peroxide (Debrox) 5 drop TWICE A DAY BOTH EARS 10/03/20 09:00 11/02/20 08:59 Enoxaparin Sodium (Lovenox) 90 mg EVERY 12 HOURS SUBQ 10/02/20 13:00 12/31/20 12:59 10/02/20 21:11 Escitalopram Oxalate (Lexapro) 10 mg DAILY ORAL 10/03/20 09:00 11/02/20 08:59 Guaifenesin (Robitussin) 200 mg Q4H PRN ORAL For Cough 10/02/20 23:15 12/31/20 22:59 Iohexol (Omnipaque 350 100ml) 100 ml NOW PRN INJ Radiology Procedure 10/02/20 11:15 10/04/20 11:14 Lactulose (Cephulac) 20 gm BID ORAL 10/03/20 09:00 11/02/20 08:59 Simethicone (Mylicon) 80 mg Q8H PRN ORAL GAS PAIN 10/02/20 23:00 12/31/20 22:59 Sodium Chloride 1,000 ml @ 75 mls/hr [id number] IV 10/02/20 22:45 11/01/20 22:44 10/02/20 23:08 Sodium Phosphate (Fleet's Sodium Phosl Enema) 133 ml DAILY PRN RECTAL Constipation 10/02/20 23:15 11/02/20 08:59 Assessment/Plan Assessment/Plan: Hematology Consultation DATE OF CONSULTATION: 10/03/2020 REASON FOR CONSULTATION: Respiratory distress, pulmonary embolism DOS: 10/03/2020 HISTORY OF PRESENT ILLNESS: This is a 44-year-old female with past medical history of hypertension who presented to the ED for evaluation of respiratory distress x3 days. She reports pain in the left upper abdomen that is dull in nature, worse with inspiration. She denies fever, cough, congestion, dysuria, hematuria, headache, neck pain. She denies recent travel, oral contraceptive use, history of cancer, or recent knee or hip surgery. She does report history of smoking every night. Chest x-ray demonstrated mild hazy atelectasis versus in filtrates in the lung bases. Patient tested negative for COVID-19 via rapid antigen test. However, a COVID-19 PCR was ordered to confirm. CT angio of chest was positive for pulmonary embolus in the subsegmental branch of the left lower lobe with dependent infiltrates in the left lung base with tiny left effusion. Patient was started on weight-based full dose Lovenox. Patient received broad- spectrum antibiotics in ER and is awaiting admission. PAST MEDICAL HISTORY: Hypertension MEDICATIONS: Lexapro ALLERGIES: No known allergies FAMILY HISTORY: Reports family history of coagulopathy in her mother PERSONAL/SOCIAL HISTORY: Reports smoking, denies alcohol use or drug use REVIEW OF SYSTEMS: Negative except mentioned in HPI PHYSICAL EXAMINATION: VITAL SIGNS:reviewed General: Patient laying in bed, NAD, normal work of breathing on room air HEENT: Head exam reveals that the head is normocephalic, atraumatic without deformity or unusual swelling. Pupils are PERRLA. CHEST AND LUNGS: Reveals clear, normal, symmetrical breath sounds with no adventitious sounds. CARDIOVASCULAR: Reveals normal S1, S2 without murmurs, rubs, or clicks. ABDOMEN: Soft with no tenderness or organomegaly. RECTAL: Deferred. MUSCULOSKELETAL: There is no tenderness to palpation. Range of motion is normal. NEUROLOGICAL: Alert and oriented x3 , nonfocal LABORATORY DATA: hemoglobin 10.1, hematocrit 34.7 Chemistries show ferritin 6, LDH 270, CRP 3.9 D-dimer 1.33 Assessment/Plan # Pulmonary embolus --> continue full dose Lovenox --> Provide supplemental oxygen as needed --> coumadin or eliquis prior to dc --> hold off hypercoag w/u # Anemia r/o iron deficiency -> anemia panel has been ordered --> hgb 10 --> transfuse prn # Infiltrates vs atelectasis --> COVID-19 antigen negative (10/02) --> repeat COVID-19 PCR ordered (10/02) # Hypertension --> BP control # Dvt ppx lovenox bid Appreciate consultation and dw Rn Reji Hobbs MD Oct 03, 2020 06:11
--- NOTE | 2020-10-03 06:42 | NUR ---
NURSE HAND-OFF REPORT: Important Events on Shift: New Admit with possibl Covid PNA and PE Patient Status: Stable Diet: Regular Pending Orders: Pending Results/Labs: Pending MD notification: Latest Vital Signs: Temperature 98.9 , Pulse 87 , B/P 125 /67 , Respiratory Rate 20 , O2 SAT 96 , Room Air, O2 Flow Rate . Vital Sign Comment: EKG Rhythm: Sinus Rhythm Rhythm change?: N MD Notified?: - MD Response: Latest Pate Fall Score: 20 Fall Risk: Low Risk Safety Measures: Call light Within Reach, Bed Alarm Zone 1, Side Rails Side Rails x2, Bed position Low and Locked. Fall Precautions: Yellow Socks Yellow Gown Patient Fall Education Report given to Carine.
--- NOTE | 2020-10-03 07:00 | NUR ---
NURSE NOTES: Received patient in bed asleep. No SOB or acute distress. IV line intact. HOB elevated. Bed locked in low position. Call light within reach. Will continue plan of care.
[2020-10-03 07:26] LABS: BASOPHILS % (AUTO) 0.7 % (0.0-2.0); EOSINOPHILS % (AUTO) 0.5 % (0.0-3.0); HEMOGLOBIN 8.7 G/DL (12.0-16.0); LYMPHOCYTES % (AUTO) 24.1 % (20.0-45.0); MEAN CORPUSCULAR VOLUME 81 FL (80-99); MONOCYTES % (AUTO) 9.7 % (1.0-10.0); NEUTROPHILS % (AUTO) 65.1 % (45.0-75.0); PLATELET COUNT 348 K/UL (150-450); RED BLOOD COUNT 3.59 M/UL (4.20-5.40); RED CELL DISTRIBUTION WIDTH 15.1 % (11.6-14.8)
[2020-10-03 07:52] LABS: % IRON SATURATION 5 % (15-50); BLOOD UREA NITROGEN 9 mg/dL (7-18); CALCIUM 7.9 MG/DL (8.5-10.1); CHLORIDE 106 MMOL/L (98-107); CREATININE 0.8 MG/DL (0.55-1.30); IRON 20 ug/dL (50-175); POTASSIUM 3.2 MMOL/L (3.5-5.1); SODIUM 139 MMOL/L (136-145); TOTAL IRON BINDING CAPACITY 385 ug/dL (250-450)
[2020-10-03 08:00] VITALS: BP 131/70
[2020-10-03 08:06] LABS: CARBON DIOXIDE 21 MMOL/L (21-32)
[2020-10-03 08:08] LABS: ANION GAP 12 mmol/L (5-15)
[2020-10-03] MEDS ORDERED: Fleet's Enema 133ml RECTAL SCH (09:00)
--- NOTE | 2020-10-03 09:00 | Consultation ---
History of Present Illness General Date patient seen: Oct 03, 2020 Chief Complaint: Dyspnea/Respdistress Reason for Consultation: PNA Present Illness HPI Ms. Prieto is a 44 yo female with PMHx of HTN who presented to the ED on 10/02/20 with SOB. The patient reports SOB with abd pain for the last few days. She denies cough, fever, N/V/D and dysuria. Her Rapid COVID 19 Ag test was negative in the ED. She was found however to have a PE on CTA. PMHx/PSHx HTN SocHx No E/T/D FamHx coagulopathy in mother Allergies: Coded Allergies: No Known Allergies (Verified Allergy, Mild, 01/17/09) Medication History Scheduled Carbamide Peroxide (Debrox), 5 DROP BOTH EARS TWICE A DAY Escitalopram Oxalate* (Lexapro*), 10 MG ORAL DAILY, (Reported) Guaifenesin* (Adult Wal-Tussin*), 10 ML ORAL Q4H Lactulose (Lactulose*), 30 ML ORAL BID Na Phos,M-B/Na Phos,Di-Ba* (Fleet Enema*), 133 ML RECTAL DAILY No Known Medications* (NKM - No Known Medications*), 0 ., (Reported) Scheduled PRN Hydrocodone Bit/Acetaminophen 5-325* ([place] 5-325*), 1 TAB ORAL Q6H PRN for For Pain Ibuprofen (Motrin), 600 MG ORAL Q8H PRN for For Pain Ibuprofen (Motrin), 600 MG ORAL Q8H PRN for For Pain Simethicone* (Simethicone*), 80 MG ORAL Q8H PRN for GAS PAIN Patient History Healthcare decision maker Resuscitation status Advanced Directive on File Review of Systems ROS Narrative 12 point ROS negative except as noted in the HPI Physical Exam Last 24 Hour Vital Signs Date Time Temp Pulse Resp B/P (MAP) Pulse Ox O2 Delivery O2 Flow Rate FiO2 10/03/20 08:00 98.8 98 18 131/70 (90) 97 10/03/20 04:00 87 10/03/20 04:00 98.9 92 20 125/67 (86) 96 10/03/20 00:00 90 10/03/20 00:00 99.2 90 20 129/68 (88) 97 10/02/20 22:00 107 10/02/20 21:56 Room Air 10/02/20 20:41 99.7 95 18 119/78 99 Room Air 10/02/20 18:14 98 20 134/78 100 Room Air 10/02/20 16:39 88 18 141/93 97 Room Air 10/02/20 13:53 89 18 131/89 100 Room Air 10/02/20 13:34 99.7 10/02/20 12:41 99.7 97 18 150/69 100 Room Air 10/02/20 11:43 98 18 145/94 99 Room Air 10/02/20 10:54 18 Room Air 100 10/02/20 09:10 100.9 118 21 139/84 (102) 97 Room Air Intake and Output 10/02/20 10/03/20 19:00 07:00 Intake Total 1350 ml Balance 1350 ml Intake Oral 1200 ml IV Total 150 ml # Voids 3 Laboratory Tests Test 10/02/20 09:45 10/02/20 10:10 10/03/20 06:26 White Blood Count 9.8 K/UL (4.8-10.8) 9.0 K/UL (4.8-10.8) Red Blood Count 4.29 M/UL (4.20-5.40) 3.59 M/UL (4.20-5.40) L Hemoglobin 10.1 G/DL (12.0-16.0) L 8.7 G/DL (12.0-16.0) L Hematocrit 34.7 % (37.0-47.0) L 29.0 % (37.0-47.0) L Mean Corpuscular Volume 81 FL (80-99) 81 FL (80-99) Mean Corpuscular Hemoglobin 23.6 PG (27.0-31.0) L 24.2 PG (27.0-31.0) L Mean Corpuscular Hemoglobin Concent 29.2 G/DL (32.0-36.0) L 30.0 G/DL (32.0-36.0) L Red Cell Distribution Width 15.4 % (11.6-14.8) H 15.1 % (11.6-14.8) H Platelet Count 402 K/UL (150-450) 348 K/UL (150-450) Mean Platelet Volume 6.8 FL (6.5-10.1) 6.7 FL (6.5-10.1) Neutrophils (%) (Auto) 71.1 % (45.0-75.0) 65.1 % (45.0-75.0) Lymphocytes (%) (Auto) 19.0 % (20.0-45.0) L 24.1 % (20.0-45.0) Monocytes (%) (Auto) 8.7 % (1.0-10.0) 9.7 % (1.0-10.0) Eosinophils (%) (Auto) 0.3 % (0.0-3.0) 0.5 % (0.0-3.0) Basophils (%) (Auto) 0.9 % (0.0-2.0) 0.7 % (0.0-2.0) Urine Color Yellow Urine Appearance Clear Urine pH 6 (4.5-8.0) Urine Specific [place] 1.015 (1.005-1.035) Urine Protein 1+ (NEGATIVE) H Urine Glucose (UA) Negative (NEGATIVE) Urine Ketones Negative (NEGATIVE) Urine Blood 4+ (NEGATIVE) H Urine Nitrite Negative (NEGATIVE) Urine Bilirubin Negative (NEGATIVE) Urine Urobilinogen Normal MG/DL (0.0-1.0) Urine Leukocyte Esterase 2+ (NEGATIVE) H Urine RBC 2-4 /HPF (0 - 2) H Urine WBC 2-4 /HPF (0 - 2) Urine Squamous Epithelial Cells Few /LPF (NONE/OCC) Urine Bacteria Few /HPF (NONE) Sodium Level 140 MMOL/L (136-145) 139 MMOL/L (136-145) Potassium Level 3.9 MMOL/L (3.5-5.1) 3.2 MMOL/L (3.5-5.1) L Chloride Level 107 MMOL/L (98-107) 106 MMOL/L (98-107) Carbon Dioxide Level 25 MMOL/L (21-32) 21 MMOL/L (21-32) Anion Gap 8 mmol/L (5-15) 12 mmol/L (5-15) Blood Urea Nitrogen 11 mg/dL (7-18) 9 mg/dL (7-18) Creatinine 0.8 MG/DL (0.55-1.30) 0.8 MG/DL (0.55-1.30) Estimat Glomerular Filtration Rate > 60 mL/min (>60) > 60 mL/min (>60) Glucose Level 91 MG/DL (74-106) 91 MG/DL (74-106) Calcium Level 8.7 MG/DL (8.5-10.1) 7.9 MG/DL (8.5-10.1) L Ferritin 6 NG/ML (8-388) L Total Bilirubin 0.5 MG/DL (0.2-1.0) Aspartate Amino Transf (AST/SGOT) 25 U/L (15-37) Alanine Aminotransferase (ALT/SGPT) 20 U/L (12-78) Alkaline Phosphatase 88 U/L (46-116) Lactate Dehydrogenase 270 U/L (81-234) H Total Creatine Kinase 223 U/L (26-308) Creatine Kinase MB < 0.5 NG/ML (0.0-3.6) Creatine Kinase MB Relative Index 0.2 Troponin I 0.000 ng/mL (0.000-0.056) C-Reactive Protein, Quantitative 3.9 mg/dL (0.00-0.90) H Pro-B-Type Natriuretic Peptide 79 pg/mL (0-125) Total Protein 8.5 G/DL (6.4-8.2) H Albumin 3.4 G/DL (3.4-5.0) Globulin 5.1 g/dL Albumin/Globulin Ratio 0.7 (1.0-2.7) L Lipase 139 U/L (73-393) Prothrombin Time 11.3 SEC (9.30-11.50) Prothromb Time International Ratio 1.0 (0.9-1.1) Activated Partial Thromboplast Time 26 SEC (23-33) D-Dimer 1.33 mg/L FEU (0.00-0.49) H Lactic Acid Level 1.20 mmol/L (0.4-2.0) Iron Level 20 ug/dL (50-175) L Total Iron Binding Capacity 385 ug/dL (250-450) Percent Iron Saturation 5 % (15-50) L Unsaturated Iron Binding 365 ug/dL (112-346) H Microbiology Date/Time Source Procedure Growth Status 10/02/20 09:45 Nasopharynx SARS-CoV-2 Antigen (Rapid)(SIDDHARTH) - Final Complete Height (Feet): 5 Height (Inches): 7.00 Weight (Pounds): 1985 Medications Current Medications Medications (Trade) Dose Ordered Sig/Billy Route PRN Reason Start Time Stop Time Status Last Admin Dose Admin Acetaminophen (Tylenol) 650 mg Q4H PRN ORAL Mild Pain (Pain Scale 1-3) 10/02/20 22:45 11/01/20 22:44 Acetaminophen (Tylenol) 650 mg Q4H PRN ORAL Temp >100.5 10/02/20 22:45 11/01/20 22:44 Acetaminophen/ Hydrocodone Bitart ([place]x 5/325) 1 tab Q6H PRN ORAL For Pain 10/02/20 23:00 10/09/20 22:59 10/03/20 05:42 Carbamide Peroxide (Debrox) 5 drop TWICE A DAY BOTH EARS 10/03/20 09:00 11/02/20 08:59 Enoxaparin Sodium (Lovenox) 90 mg EVERY 12 HOURS SUBQ 10/02/20 13:00 12/31/20 12:59 10/02/20 21:11 Escitalopram Oxalate (Lexapro) 10 mg DAILY ORAL 10/03/20 09:00 11/02/20 08:59 Guaifenesin (Robitussin) 200 mg Q4H PRN ORAL For Cough 10/02/20 23:15 12/31/20 22:59 Iohexol (Omnipaque 350 100ml) 100 ml NOW PRN INJ Radiology Procedure 10/02/20 11:15 10/04/20 11:14 Lactulose (Cephulac) 20 gm BID ORAL 10/03/20 09:00 11/02/20 08:59 Simethicone (Mylicon) 80 mg Q8H PRN ORAL GAS PAIN 10/02/20 23:00 12/31/20 22:59 Sodium Chloride 1,000 ml @ 75 mls/hr [id number] IV 10/02/20 22:45 11/01/20 22:44 10/02/20 23:08 Sodium Phosphate (Fleet's Sodium Phosl Enema) 133 ml DAILY PRN RECTAL Constipation 10/02/20 23:15 11/02/20 08:59 Objective Narrative Gen: NAD HEENT: NCAT, MMM, EOMI, No scleral icterus NECK Supple, No LAD HEART: RRR, S1, S2 Pulm: CTAB, No W No accessory mescle use Abd: Soft, NT, ND, + BS : Differed Neuro: Awake, Alert, Moving arms and legs SKIN: Exposed skin normal in color no rash noted Assessment/Plan Assessment/Plan: 44 yo female with PMHx of HTN who presented to the ED on 10/02/20 with SOB. The patient reports SOB with abd pain for the last few days. PNA R/O COVID 19 COVID 19 Ag Neg 10/02/20 Sars COV2 PCR 10/02/20 - Pend Fever No leukocytosis PE - Fam Hx of coagulopathy CTA 10/02/20 - STUDY POSITIVE FOR PULMONARY EMBOLUS IN A SUBSEGMENTAL BRANCH OF THE LEFT LOWER LOBE. DEPENDENT INFILTRATES LEFT LUNG BASE WITH TINY LEFT EFFUSION. ALSO MILD INFLAMMATORY CHANGES POSTERIOR RIGHT LUNG BASE. HTN PLAN - Continue Azithromycin #1 and Ceftriaxone #1 - f/u SARS COV 2 PCR - Monitor Resp status - Monitor CBC and Temps Thank you for this consult. [facility] will conttinue to follow Ms. Prieto while she is hospitalized Guevara Tanner MD Oct 03, 2020 09:00
[2020-10-03] MEDS: Lactulose 20gm/30ml UDC ORAL SCH ×3 (09:10→17:23)
[2020-10-03] MEDS: Enoxaparin 100mg Inj SUBQ SCH ×2 (09:11→20:08)
--- NOTE | 2020-10-03 10:41 | NUR ---
RADIOLOGY DEPT., POST ENTRIES OF IMAGING EXAMS. TWO PORTABLE CHEST X-RAY AND CT CHEST ANGIOGRAM HAVE BEEN COMPLETED 10/02/2020.- P. DYE
[2020-10-03] MEDS: Carbamide Peroxide 6.5% Ot Sol 15ML BOTH EARS SCH ×2 (10:55→18:09)
--- NOTE | 2020-10-03 11:00 | Pulmonology Progress Note ---
Subjective ROS Limited/Unobtainable: No Interval Events: None major reported per nursing Constitutional: Reports: fever, other - Tmax=99.7 HEENT: Repors: no symptoms Respiratory: Reports: pleuritic pain Cardiovascular: Reports: no symptoms Gastrointestinal/Abdominal: Reports: no symptoms Allergies: Coded Allergies: No Known Allergies (Verified Allergy, Mild, 01/17/09) Objective Last 24 Hour Vital Signs Date Time Temp Pulse Resp B/P (MAP) Pulse Ox O2 Delivery O2 Flow Rate FiO2 10/03/20 08:00 98.8 98 18 131/70 (90) 97 10/03/20 04:00 87 10/03/20 04:00 98.9 92 20 125/67 (86) 96 10/03/20 00:00 90 10/03/20 00:00 99.2 90 20 129/68 (88) 97 10/02/20 22:00 107 10/02/20 21:56 Room Air 10/02/20 20:41 99.7 95 18 119/78 99 Room Air 10/02/20 18:14 98 20 134/78 100 Room Air 10/02/20 16:39 88 18 141/93 97 Room Air 10/02/20 13:53 89 18 131/89 100 Room Air 10/02/20 13:34 99.7 10/02/20 12:41 99.7 97 18 150/69 100 Room Air 10/02/20 11:43 98 18 145/94 99 Room Air Intake and Output 10/02/20 10/03/20 19:00 07:00 Intake Total 1350 ml Balance 1350 ml Intake Oral 1200 ml IV Total 150 ml # Voids 3 General Appearance: no acute distress HEENT: atraumatic, anicteric Respiratory: lungs clear, normal breath sounds, no respiratory distress, no accessory muscle use Cardiovascular: normal rate, regular rhythm Abdomen: soft, non tender Microbiology Date/Time Source Procedure Growth Status 10/02/20 09:45 Nasopharynx SARS-CoV-2 Antigen (Rapid)(SIDDHARTH) - Final Complete Laboratory Tests 10/03/20 06:26: White Blood Count 9.0, Red Blood Count 3.59L, Hemoglobin 8.7L, Hematocrit 29.0L, Mean Corpuscular Volume 81, Mean Corpuscular Hemoglobin 24.2L, Mean Corpuscular Hemoglobin Concent 30.0L, Red Cell Distribution Width 15.1H, Platelet Count 348, Mean Platelet Volume 6.7, Neutrophils (%) (Auto) 65.1, Lymphocytes (%) (Auto) 24.1, Monocytes (%) (Auto) 9.7, Eosinophils (%) (Auto) 0.5, Basophils (%) (Auto) 0.7, Sodium Level 139, Potassium Level 3.2L, Chloride Level 106, Carbon Dioxide Level 21, Anion Gap 12, Blood Urea Nitrogen 9, Creatinine 0.8, Estimat Glomerular Filtration Rate > 60, Glucose Level 91, Calcium Level 7.9L, Iron Level 20L, Total Iron Binding Capacity 385, Percent Iron Saturation 5L, Unsaturated Iron Binding 365H Current Medications Medications (Trade) Dose Ordered Sig/Billy Route PRN Reason Start Time Stop Time Status Last Admin Dose Admin Acetaminophen (Tylenol) 650 mg Q4H PRN ORAL Mild Pain (Pain Scale 1-3) 10/02/20 22:45 11/01/20 22:44 Acetaminophen (Tylenol) 650 mg Q4H PRN ORAL Temp >100.5 10/02/20 22:45 11/01/20 22:44 Acetaminophen/ Hydrocodone Bitart ([place] 5/325) 1 tab Q6H PRN ORAL For Pain 10/02/20 23:00 10/09/20 22:59 10/03/20 05:42 Carbamide Peroxide (Debrox) 5 drop TWICE A DAY BOTH EARS 10/03/20 09:00 11/02/20 08:59 10/03/20 10:55 Enoxaparin Sodium (Lovenox) 90 mg EVERY 12 HOURS SUBQ 10/02/20 13:00 12/31/20 12:59 10/03/20 09:11 Escitalopram Oxalate (Lexapro) 10 mg DAILY ORAL 10/03/20 09:00 11/02/20 08:59 10/03/20 09:10 Guaifenesin (Robitussin) 200 mg Q4H PRN ORAL For Cough 10/02/20 23:15 12/31/20 22:59 Iohexol (Omnipaque 350 100ml) 100 ml NOW PRN INJ Radiology Procedure 10/02/20 11:15 10/04/20 11:14 Lactulose (Cephulac) 20 gm BID ORAL 2/24/21 09:00 11/02/20 08:59 10/03/20 09:10 Simethicone (Mylicon) 80 mg Q8H PRN ORAL GAS PAIN 10/02/20 23:00 12/31/20 22:59 Sodium Chloride 1,000 ml @ 75 mls/hr [id number] IV 10/02/20 22:45 11/01/20 22:44 10/02/20 23:08 Sodium Phosphate (Fleet's Sodium Phosl Enema) 133 ml DAILY PRN RECTAL Constipation 10/02/20 23:15 11/02/20 08:59 Assessment/Plan Assessment/Plan 1. Pulmonary embolus - continue full dose Lovenox - Provide supplemental oxygen as needed - coumadin or eliquis prior to dc, per Heme onc - hold off hypercoag w/u, per Heme onc 2. Infiltrates vs atelectasis - COVID-19 antigen negative (10/02) - repeat COVID-19 PCR pending (10/02) - now on Abx per ID 3. Hypertension - BP control The care for this patient was discussed with my supervising physician. Time spent for this case was approximately 31 minutes. Christopher Ho Oct 03, 2020 11:00
[2020-10-03 12:00] VITALS: BP 155/101
--- NOTE | 2020-10-03 15:06 | Diagnostic Imaging Report ---
Indication: Shortness of breath Technique: XRAY Chest 1v Comparison: 10/02/2020 Findings: Improved aeration in the right base with decreased hazy opacities. No change in hazy opacities left base and possible layering small left pleural effusion. No pneumothorax. Heart size and osseous structures are stable. Impression: Slightly improved aeration with persistent but decreased bibasilar opacities. Small layering left pleural effusion suspected.
--- NOTE | 2020-10-03 15:14 | History and Physical Report ---
DATE OF ADMISSION: 10/02/2020 DATE AND TIME: 10/03/2020 at 9 a.m. CONSULTANTS: 1. Syd Rodney M.D. 2. Azam Hobbs M.D. 3. José Miguel Alston M.D. 4. Iraj Tim M.D. CHIEF COMPLAINT: Cough, shortness of breath, PE, pneumonia, hypokalemia, hypertension. BRIEF HISTORY: This is a 44-year-old female who presents to [facility] with 3 days of increased shortness of breath, cough, and congestion, diagnosed with pulmonary embolus and pneumonia, possible COVID, and admitted to telemetry. Currently calm in room, slight short of breath, sleepy, not talking much. REVIEW OF SYSTEMS: Unavailable. PAST MEDICAL HISTORY: Hypertension. PAST SURGICAL HISTORY: Unknown. MEDICATIONS: Lactulose, guaifenesin hydrocodone, Tylenol, ketorolac, morphine, azithromycin, ceftriaxone. ALLERGIES: Denies. SOCIAL HISTORY: Unobtainable secondary to the patient is very sleepy. OBJECTIVE: GENERAL: Calm in bed, sleepy, not talking much. VITAL SIGNS: Temperature is 98, pulse 98, respiratory rate 18, blood pressure 131/70. CARDIOVASCULAR: No murmur. LUNGS: Poor air exchange. ABDOMEN: Bowel sounds distant. EXTREMITIES: No cyanosis, clubbing, or edema. NEUROLOGIC: The patient moves all extremities, slightly weak. LABORATORY AND DIAGNOSTIC DATA: Labs at this time show H and H 8.7 and 29, otherwise CBC is normal. BMP shows potassium of 3.2, calcium 7.9, otherwise normal. Troponin 0.00. INR is 1.0. D-dimer 1.33. Urinalysis, 1+ protein, 4+ blood, 2+ leukocyte esterase. ASSESSMENT: Pulmonary embolus, UTI, pneumonia, hypokalemia, anemia, hypertension. PLAN: 1. O2 and pulmonary treatment. 2. Antibiotics per Infectious Disease. 3. Blood pressure, pain control. 4. Anticoagulate. 5. Repeat COVID exam. 6. CBC and BMP in the morning. Lee Johnson D.O. DR: JULY JOB#: [id number] CC:
--- NOTE | 2020-10-03 15:55 | Consultation ---
Consult Note Consult Note I am asked to evaluate the patient at the request of Dr. Johnson for fluid and electrolyte management Chief Complaint: Dyspnea/Respdistress This patient states that for the past 3 days she has had difficulty breathing. She also has had pain in her left upper abdomen. She states the pain is worse with a deep breath. She states she feels like she cannot take a deep breath. She also states that she has body aches and chills. She has had some cough and congestion. She denies dysuria or hematuria. She denies headache or neck pain. She has no other complaints. Allergies: No Known Allergies (Verified Allergy, Mild, 01/17/09) COVID-19 Screening Contact w/high risk pt: No Experienced COVID-19 symptoms?: Yes COVID-19 Testing performed ORTHODONTIC LAB TECHNICIAN: No Past Medical History: see triage record, HTN Social History: Denies: smoking, alcohol use, drug use Reviewed Nursing Documentation: PMH: Agreed; PSxH: Agreed Past Medical History: No History, Except For Hx Hypertension: Yes Vital Signs Date Time Temp Pulse Resp B/P (MAP) Pulse Ox O2 Delivery O2 Flow Rate FiO2 10/02/20 09:10 100.9 118 21 139/84 (102) 97 Room Air 10/02/20 10:54 100 Objective Narrative Gen: NAD HEENT: NCAT, MMM, EOMI, No scleral icterus NECK Supple, No LAD HEART: RRR, S1, S2 Pulm: CTAB, No W No accessory mescle use Abd: Soft, NT, ND, + BS : Differed Neuro: Awake, Alert, Moving arms and legs SKIN: Exposed skin normal in color no rash noted 0. Assessment/Plan Hypokalemia pneumonia Pulmonary embolism Fever Anemia Hypertension Suggestion: IV fluid with potassium supplement Keep the blood pressure in check Continue per consultants Iraj Tim MD Oct 03, 2020 15:55
--- NOTE | 2020-10-03 15:57 | NUR ---
CASE MANAGEMENT: INITIAL REVIEW 44 YO F PRESENTED TO ED FROM HOME CC: DYSPNEA PMHx: HTN SI:PNA. R/O PE VS: T 100.9 HR 118 RR 21 B/P 139/84 SATS 97% ON RA LABS: LDH 270CRP 3.9 IS: TYLENOL PO X1 CEFTRIAXONE IV X1 AZITHROMYCIN PO X1 LOVENOX SUBQ X1 MORPHINE IV X1 PATIENT ADMITTED TO TELE 10/02/2020 @ 1502 DCP: HOME W/ FAMILY PLAN OF CARE : O2 and pulmonary treatment Blood pressure, pain control Anticoagulate
[2020-10-03 16:00] VITALS: BP 156/110
[2020-10-03] MEDS: Docusate 100mg cap ORAL SCH ×2 (17:17→17:23)
[2020-10-03] MEDS: D5NS w/KCl 40mEq 1000ml 1,000 ML IV SCH ×2 (17:17→17:23)
--- NOTE | 2020-10-03 18:05 | NUR ---
NURSE HAND-OFF REPORT: Important Events on Shift: Patient Status: alert, pleasant Diet: reg Pending Orders: Pending Results/Labs: covid PCR Pending MD notification: Latest Vital Signs: Temperature 98.1 , Pulse 91 , B/P 156 /110 , Respiratory Rate 18 , O2 SAT 97 , Room Air, O2 Flow Rate . Vital Sign Comment: EKG Rhythm: Sinus Rhythm Rhythm change?: N MD Notified?: - MD Response: Latest Pate Fall Score: 20 Fall Risk: Low Risk Safety Measures: Call light Within Reach, Bed Alarm Zone 1, Side Rails Side Rails x2, Bed position Low and Locked. Fall Precautions: Yellow Socks Yellow Gown Patient Fall Education . Addendum: 10/03/20 at 1926 by Carine Shepard RN NURSE NOTES: Report given to Nela PARRA
--- NOTE | 2020-10-03 19:15 | NUR ---
NURSE NOTES: Received report from AIDA Hawk. Pt is A/O x4 and verbally responsive. Pt is ambulatory and continent of both bowel and bladder. Pt is on RA with no SOB or acute distress noted. No pain noted at this time. Pt states she was given pain mediation around 1800 from AM nurse. Pt has a LAC 20 which is running NS @75cc/hr. Pt bed in lowest position and locked with side rails x2. Call light placed within reach. Will continue plan of care.
[2020-10-03 20:55] VITALS: BP 133/80
--- NOTE | 2020-10-03 21:40 | NUR ---
NURSE NOTES: Contacted Dr Tanner regarding PCR and removing isolation. He stated another PCR needs to be done per CDC recommendations before he removes the isolation. PCR order carried out.
[2020-10-04] VITALS: BP 140/76
[2020-10-04 04:00] VITALS: BP 133/80
[2020-10-04] MEDS: HYDROcodone/Acetamin 5/325 tab ORAL PRN (04:47)
--- NOTE | 2020-10-04 05:08 | NUR ---
NURSE notes at 4:47 AM HYDROCODONE PAIN MEDICATION GIVING FOR PATIENT QUESTED PAIN LEVEL 7. AT 5:30 i reassed the patient, medication effective
--- NOTE | 2020-10-04 06:24 | NUR ---
NURSE HAND-OFF REPORT: Important Events on Shift: Rhino rocket deflated and bleeding episode. Patient Status: Stable Diet: Regular Pending Orders: Pending Results/Labs: Pending MD notification: Latest Vital Signs: Temperature 99.2 , Pulse 93 , B/P 133 /80 , Respiratory Rate 16 , O2 SAT 96 , Room Air, O2 Flow Rate . Vital Sign Comment: EKG Rhythm: Sinus Rhythm Rhythm change?: N MD Notified?: - MD Response: Latest Pate Fall Score: 20 Fall Risk: Low Risk Safety Measures: Call light Within Reach, Bed Alarm Zone 1, Side Rails Side Rails x2, Bed position Low and Locked. Fall Precautions: Yellow Socks Yellow Gown Patient Fall Education Report given to Malini. Addendum: 10/04/20 at 0630 by Nela Barroso RN Wrong patient. No Rhino rocket. Pt is stable and no pain after medication given.
--- NOTE | 2020-10-04 06:42 | Hematology/Onc Progress Note ---
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 -> anemia panel has been ordered->reviewed, ferritin 6 --> hgb 10-->8 --> iv iron x 5 days started --> transfuse prn # Infiltrates vs atelectasis --> COVID-19 antigen negative (10/02) --> repeat COVID-19 PCR ordered (10/02) # Hypertension --> BP control # Dvt ppx lovenox bid Appreciate consultation and dw Rn Subjective Cardiovascular: Denies: no symptoms, chest pain, edema, irregular heart rate, lightheadedness, palpitations, syncope, other Respiratory: Denies: no symptoms, cough, shortness of breath, SOB with excertion, SOB at rest, sputum, wheezing, other Gastrointestinal/Abdominal: Denies: no symptoms, abdomen distended, abdominal pain, black stools, tarry stools, blood in stool, constipated, diarrhea, difficulty swallowing, nausea, poor appetite, poor fluid intake, rectal bleeding, vomiting, other Genitourinary: Denies: no symptoms, burning, discharge, frequency, flank pain, hematuria, incontinence, pain, urgency, other Neurologic/Psychiatric: Denies: no symptoms, anxiety, depressed, emotional problems, headache, numbness, paresthesia, pre-existing deficit, seizure, tingling, tremors, weakness, other Endocrine: Denies: no symptoms, excessive sweating, flushing, intolerance to cold, intolerance to heat, increased hunger, increased thirst, increased urine, unexplained weight gain, unexplained weight loss, other Hematologic/Lymphatic: Denies: no symptoms, anemia, easy bleeding, easy bruising, adenopathy, other Allergies: Coded Allergies: No Known Allergies (Verified Allergy, Mild, 01/17/09) Subjective 10/03 responsive, on ra, is on iv iron now, hgb noted Objective Objective Current Medications Medications (Trade) Dose Ordered Sig/Billy Route PRN Reason Start Time Stop Time Status Last Admin Dose Admin Acetaminophen (Tylenol) 650 mg Q4H PRN ORAL Mild Pain (Pain Scale 1-3) 10/02/20 22:45 11/01/20 22:44 Acetaminophen (Tylenol) 650 mg Q4H PRN ORAL Temp >100.5 10/02/20 22:45 11/01/20 22:44 Acetaminophen/ Hydrocodone Bitart ([place] 5/325) 1 tab Q6H PRN ORAL For Pain 10/02/20 23:00 10/09/20 22:59 10/04/20 04:47 Carbamide Peroxide (Debrox) 5 drop TWICE A DAY BOTH EARS 10/03/20 09:00 11/02/20 08:59 10/03/20 18:09 Dextrose/ Electrolytes 1,000 ml @ 75 mls/hr [id number] IV 10/03/20 17:00 11/02/20 16:59 10/03/20 17:23 Docusate Sodium (Colace) 100 mg THREE TIMES A DAY ORAL 10/03/20 18:00 11/02/20 17:59 10/03/20 17:23 Enoxaparin Sodium (Lovenox) 90 mg EVERY 12 HOURS SUBQ 10/02/20 13:00 12/31/20 12:59 10/03/20 20:08 Escitalopram Oxalate (Lexapro) 10 mg DAILY ORAL 10/03/20 09:00 11/02/20 08:59 10/03/20 09:10 Famotidine (Pepcid) 20 mg BID ORAL 10/03/20 18:00 01/01/21 17:59 10/03/20 17:23 Guaifenesin (Robitussin) 200 mg Q4H PRN ORAL For Cough 10/02/20 23:15 12/31/20 22:59 Iohexol (Omnipaque 350 100ml) 100 ml NOW PRN INJ Radiology Procedure 10/02/20 11:15 10/04/20 11:14 Lactulose (Cephulac) 20 gm BID ORAL 10/03/20 09:00 11/02/20 08:59 10/03/20 17:23 Simethicone (Mylicon) 80 mg Q8H PRN ORAL GAS PAIN 10/02/20 23:00 12/31/20 22:59 Sodium Phosphate (Fleet's Sodium Phosl Enema) 133 ml DAILY PRN RECTAL Constipation 10/02/20 23:15 11/02/20 08:59 Last 24 Hour Vital Signs Date Time Temp Pulse Resp B/P (MAP) Pulse Ox O2 Delivery O2 Flow Rate FiO2 10/04/20 05:17 99.2 10/04/20 04:00 93 10/04/20 04:00 99.4 82 16 133/80 (97) 96 10/04/20 00:00 97.7 69 17 140/76 (97) 95 10/03/20 21:00 Room Air 10/03/20 20:55 99.4 82 16 133/80 (97) 96 10/03/20 20:00 85 10/03/20 16:00 98.1 102 18 156/110 (125) 97 10/03/20 16:00 91 10/03/20 12:00 98.6 102 20 155/101 (119) 98 10/03/20 12:00 98 10/03/20 09:00 Room Air 10/03/20 08:00 97 10/03/20 08:00 98.8 98 18 131/70 (90) 97 10/03/20 04:00 87 10/03/20 04:00 98.9 92 20 125/67 (86) 96 10/03/20 00:00 90 10/03/20 00:00 99.2 90 20 129/68 (88) 97 10/02/20 22:00 107 10/02/20 21:56 Room Air 10/02/20 20:41 99.7 95 18 119/78 99 Room Air 10/02/20 18:14 98 20 134/78 100 Room Air 10/02/20 16:39 88 18 141/93 97 Room Air 10/02/20 13:53 89 18 131/89 100 Room Air 10/02/20 13:34 99.7 10/02/20 12:41 99.7 97 18 150/69 100 Room Air 10/02/20 11:43 98 18 145/94 99 Room Air 10/02/20 10:54 18 Room Air 100 10/02/20 09:10 100.9 118 21 139/84 (102) 97 Room Air Intake and Output 10/03/20 10/04/20 19:00 07:00 Intake Total 240 ml Balance 240 ml Intake Oral 240 ml # Voids 4 4 Labs Test 10/02/20 09:45 10/02/20 10:10 10/03/20 06:26 10/03/20 16:47 White Blood Count 9.8 K/UL (4.8-10.8) 9.0 K/UL (4.8-10.8) Red Blood Count 4.29 M/UL (4.20-5.40) 3.59 M/UL (4.20-5.40) Hemoglobin 10.1 G/DL (12.0-16.0) 8.7 G/DL (12.0-16.0) Hematocrit 34.7 % (37.0-47.0) 29.0 % (37.0-47.0) Mean Corpuscular Volume 81 FL (80-99) 81 FL (80-99) Mean Corpuscular Hemoglobin 23.6 PG (27.0-31.0) 24.2 PG (27.0-31.0) Mean Corpuscular Hemoglobin Concent 29.2 G/DL (32.0-36.0) 30.0 G/DL (32.0-36.0) Red Cell Distribution Width 15.4 % (11.6-14.8) 15.1 % (11.6-14.8) Platelet Count 402 K/UL (150-450) 348 K/UL (150-450) Mean Platelet Volume 6.8 FL (6.5-10.1) 6.7 FL (6.5-10.1) Neutrophils (%) (Auto) 71.1 % (45.0-75.0) 65.1 % (45.0-75.0) Lymphocytes (%) (Auto) 19.0 % (20.0-45.0) 24.1 % (20.0-45.0) Monocytes (%) (Auto) 8.7 % (1.0-10.0) 9.7 % (1.0-10.0) Eosinophils (%) (Auto) 0.3 % (0.0-3.0) 0.5 % (0.0-3.0) Basophils (%) (Auto) 0.9 % (0.0-2.0) 0.7 % (0.0-2.0) Urine Color Yellow Urine Appearance Clear Urine pH 6 (4.5-8.0) Urine Specific [place] 1.015 (1.005-1.035) Urine Protein 1+ (NEGATIVE) Urine Glucose (UA) Negative (NEGATIVE) Urine Ketones Negative (NEGATIVE) Urine Blood 4+ (NEGATIVE) Urine Nitrite Negative (NEGATIVE) Urine Bilirubin Negative (NEGATIVE) Urine Urobilinogen Normal MG/DL (0.0-1.0) Urine Leukocyte Esterase 2+ (NEGATIVE) Urine RBC 2-4 /HPF (0 - 2) Urine WBC 2-4 /HPF (0 - 2) Urine Squamous Epithelial Cells Few /LPF (NONE/OCC) Urine Bacteria Few /HPF (NONE) Sodium Level 140 MMOL/L (136-145) 139 MMOL/L (136-145) Potassium Level 3.9 MMOL/L (3.5-5.1) 3.2 MMOL/L (3.5-5.1) Chloride Level 107 MMOL/L (98-107) 106 MMOL/L (98-107) Carbon Dioxide Level 25 MMOL/L (21-32) 21 MMOL/L (21-32) Anion Gap 8 mmol/L (5-15) 12 mmol/L (5-15) Blood Urea Nitrogen 11 mg/dL (7-18) 9 mg/dL (7-18) Creatinine 0.8 MG/DL (0.55-1.30) 0.8 MG/DL (0.55-1.30) Estimat Glomerular Filtration Rate > 60 mL/min (>60) > 60 mL/min (>60) Glucose Level 91 MG/DL (74-106) 91 MG/DL (74-106) Calcium Level 8.7 MG/DL (8.5-10.1) 7.9 MG/DL (8.5-10.1) Ferritin 6 NG/ML (8-388) Total Bilirubin 0.5 MG/DL (0.2-1.0) Aspartate Amino Transf (AST/SGOT) 25 U/L (15-37) Alanine Aminotransferase (ALT/SGPT) 20 U/L (12-78) Alkaline Phosphatase 88 U/L (46-116) Lactate Dehydrogenase 270 U/L (81-234) Total Creatine Kinase 223 U/L (26-308) Creatine Kinase MB < 0.5 NG/ML (0.0-3.6) Creatine Kinase MB Relative Index 0.2 Troponin I 0.000 ng/mL (0.000-0.056) C-Reactive Protein, Quantitative 3.9 mg/dL (0.00-0.90) Pro-B-Type Natriuretic Peptide 79 pg/mL (0-125) Total Protein 8.5 G/DL (6.4-8.2) Albumin 3.4 G/DL (3.4-5.0) Globulin 5.1 g/dL Albumin/Globulin Ratio 0.7 (1.0-2.7) Lipase 139 U/L (73-393) Prothrombin Time 11.3 SEC (9.30-11.50) Prothromb Time International Ratio 1.0 (0.9-1.1) Activated Partial Thromboplast Time 26 SEC (23-33) D-Dimer 1.33 mg/L FEU (0.00-0.49) Lactic Acid Level 1.20 mmol/L (0.4-2.0) Iron Level 20 ug/dL (50-175) Total Iron Binding Capacity 385 ug/dL (250-450) Percent Iron Saturation 5 % (15-50) Unsaturated Iron Binding 365 ug/dL (112-346) Urine Opiates Screen Negative (NEGATIVE) Urine Barbiturates Screen Negative (NEGATIVE) Phencyclidine (PCP) Screen Negative (NEGATIVE) Urine Amphetamines Screen Negative (NEGATIVE) Urine Benzodiazepines Screen Negative (NEGATIVE) Urine Cocaine Screen Negative (NEGATIVE) Urine Marijuana (THC) Screen Positive (NEGATIVE) Height (Feet): 5 Height (Inches): 7.00 Weight (Pounds): 1988 Objective PHYSICAL EXAMINATION: VITAL SIGNS:reviewed General: Patient laying in bed, NAD, normal work of breathing on room air HEENT: Head exam reveals that the head is normocephalic, atraumatic without deformity or unusual swelling. Pupils are PERRLA. CHEST AND LUNGS: Reveals clear, normal, symmetrical breath sounds with no adventitious sounds. CARDIOVASCULAR: Reveals normal S1, S2 without murmurs, rubs, or clicks. ABDOMEN: Soft with no tenderness or organomegaly. RECTAL: Deferred. MUSCULOSKELETAL: There is no tenderness to palpation. Range of motion is normal. NEUROLOGICAL: Alert and oriented x3 , nonfocal Reji Hobbs MD Oct 04, 2020 06:42
[2020-10-04 08:00] VITALS: BP 145/87
--- NOTE | 2020-10-04 08:00 | NUR ---
NURSE NOTES: pt in bed having breakfast. AOx4 able to express needs. pt on library monitor no signs of cardiac or respiratory distress, in room air. Iv is not patent. Bed locked and lowest position call light within reach. Will continue to monitor pt.
--- NOTE | 2020-10-04 08:08 | Infectious Diseases Prog Note ---
Assessment/Plan 44 yo female with PMHx of HTN who presented to the ED on 10/02/20 with SOB. The patient reports SOB with abd pain for the last few days. PNA R/O COVID 19 COVID 19 Ag Neg 10/02/20 Sars COV2 PCR 10/02/20 - Neg Fever No leukocytosis PE - Fam Hx of coagulopathy CTA 10/02/20 - STUDY POSITIVE FOR PULMONARY EMBOLUS IN A SUBSEGMENTAL BRANCH OF THE LEFT LOWER LOBE. DEPENDENT INFILTRATES LEFT LUNG BASE WITH TINY LEFT EFFUSION. ALSO MILD INFLAMMATORY CHANGES POSTERIOR RIGHT LUNG BASE. HTN PLAN - Continue Azithromycin #2/3 and Ceftriaxone #2/3 Will likely D/C abx tomorrow - f/u 2nd SARS COV 2 PCR - Monitor Resp status - Monitor CBC and Temps Thank you for this consult. [facility] will conttinue to follow Ms. Prieto while she is hospitalized Subjective Allergies: Coded Allergies: No Known Allergies (Verified Allergy, Mild, 01/17/09) Afebrile Satting well on RA No Leukocytosis Objective Last 24 Hour Vital Signs Date Time Temp Pulse Resp B/P (MAP) Pulse Ox O2 Delivery O2 Flow Rate FiO2 10/04/20 05:17 99.2 10/04/20 04:00 93 10/04/20 04:00 99.4 82 16 133/80 (97) 96 10/04/20 00:00 97.7 69 17 140/76 (97) 95 10/03/20 21:00 Room Air 10/03/20 20:55 99.4 82 16 133/80 (97) 96 10/03/20 20:00 85 10/03/20 16:00 98.1 102 18 156/110 (125) 97 10/03/20 16:00 91 10/03/20 12:00 98.6 102 20 155/101 (119) 98 10/03/20 12:00 98 10/03/20 09:00 Room Air Height (Feet): 5 Height (Inches): 7.00 Weight (Pounds): 1988 Gen: NAD HEENT: NCAT, MMM, EOMI, No scleral icterus Pulm: RRR, No accessory muscle use Abd: Soft, ND, Microbiology Date/Time Source Procedure Growth Status 10/02/20 13:35 Nasopharynx Coronavirus COVID-19 PCR ([facility]) - Final Complete 10/02/20 10:10 Blood Blood Culture - Preliminary NO GROWTH AFTER 24 HOURS Resulted 10/02/20 10:10 Blood Blood Culture - Preliminary NO GROWTH AFTER 24 HOURS Resulted 10/02/20 09:45 Nasopharynx SARS-CoV-2 Antigen (Rapid)([facility]) - Final Complete Laboratory Tests Test 10/03/20 16:47 Urine Opiates Screen Negative (NEGATIVE) Urine Barbiturates Screen Negative (NEGATIVE) Phencyclidine (PCP) Screen Negative (NEGATIVE) Urine Amphetamines Screen Negative (NEGATIVE) Urine Benzodiazepines Screen Negative (NEGATIVE) Urine Cocaine Screen Negative (NEGATIVE) Urine Marijuana (THC) Screen Positive (NEGATIVE) H Current Medications Medications (Trade) Dose Ordered Sig/Billy Route PRN Reason Start Time Stop Time Status Last Admin Dose Admin Acetaminophen (Tylenol) 650 mg Q4H PRN ORAL Mild Pain (Pain Scale 1-3) 10/02/20 22:45 11/01/20 22:44 Acetaminophen (Tylenol) 650 mg Q4H PRN ORAL Temp >100.5 10/02/20 22:45 11/01/20 22:44 Acetaminophen/ Hydrocodone Bitart ([place] 5/325) 1 tab Q6H PRN ORAL For Pain 10/02/20 23:00 10/09/20 22:59 10/04/20 04:47 Carbamide Peroxide (Debrox) 5 drop TWICE A DAY BOTH EARS 10/03/20 09:00 11/02/20 08:59 10/03/20 18:09 Dextrose/ Electrolytes 1,000 ml @ 75 mls/hr [id number] IV 10/03/20 17:00 11/02/20 16:59 10/03/20 17:23 Docusate Sodium (Colace) 100 mg THREE TIMES A DAY ORAL 10/03/20 18:00 11/02/20 17:59 10/03/20 17:23 Enoxaparin Sodium (Lovenox) 90 mg EVERY 12 HOURS SUBQ 10/02/20 13:00 12/31/20 12:59 10/03/20 20:08 Escitalopram Oxalate (Lexapro) 10 mg DAILY ORAL 10/03/20 09:00 11/02/20 08:59 10/03/20 09:10 Famotidine (Pepcid) 20 mg BID ORAL 10/03/20 18:00 01/01/21 17:59 10/03/20 17:23 Guaifenesin (Robitussin) 200 mg Q4H PRN ORAL For Cough 10/02/20 23:15 12/31/20 22:59 Iohexol (Omnipaque 350 100ml) 100 ml NOW PRN INJ Radiology Procedure 10/02/20 11:15 10/04/20 11:14 Iron Sucrose 100 mg/Sodium Chloride 60 ml @ 240 mls/hr BEDTIME IVPB 10/04/20 21:00 10/08/20 21:14 Lactulose (Cephulac) 20 gm BID ORAL 10/03/20 09:00 11/02/20 08:59 10/03/20 17:23 Simethicone (Mylicon) 80 mg Q8H PRN ORAL GAS PAIN 10/02/20 23:00 12/31/20 22:59 Sodium Phosphate (Fleet's Sodium Phosl Enema) 133 ml DAILY PRN RECTAL Constipation 10/02/20 23:15 11/02/20 08:59 Guevara Tanner MD Oct 04, 2020 08:08
--- NOTE | 2020-10-04 09:17 | Pulmonology Progress Note ---
Subjective ROS Limited/Unobtainable: No Interval Events: None major reported per nursing Constitutional: Reports: fever, other - resolved HEENT: Repors: no symptoms Respiratory: Reports: pleuritic pain Cardiovascular: Reports: no symptoms Gastrointestinal/Abdominal: Reports: no symptoms Allergies: Coded Allergies: No Known Allergies (Verified Allergy, Mild, 01/17/09) Objective Last 24 Hour Vital Signs Date Time Temp Pulse Resp B/P (MAP) Pulse Ox O2 Delivery O2 Flow Rate FiO2 10/04/20 08:00 97.7 109 18 145/87 (106) 97 10/04/20 05:17 99.2 10/04/20 04:00 93 10/04/20 04:00 99.4 82 16 133/80 (97) 96 10/04/20 00:00 97.7 69 17 140/76 (97) 95 10/03/20 21:00 Room Air 10/03/20 20:55 99.4 82 16 133/80 (97) 96 10/03/20 20:00 85 10/03/20 16:00 98.1 102 18 156/110 (125) 97 10/03/20 16:00 91 10/03/20 12:00 98.6 102 20 155/101 (119) 98 10/03/20 12:00 98 Intake and Output 10/03/20 10/04/20 19:00 07:00 Intake Total 240 ml Balance 240 ml Intake Oral 240 ml # Voids 4 4 General Appearance: no acute distress HEENT: atraumatic, anicteric Respiratory: lungs clear, normal breath sounds, no respiratory distress, no accessory muscle use Cardiovascular: normal rate, regular rhythm Abdomen: soft, non tender Microbiology Date/Time Source Procedure Growth Status 10/02/20 13:35 Nasopharynx Coronavirus COVID-19 PCR ([facility]) - Final Complete 10/02/20 10:10 Blood Blood Culture - Preliminary NO GROWTH AFTER 24 HOURS Resulted 10/02/20 10:10 Blood Blood Culture - Preliminary NO GROWTH AFTER 24 HOURS Resulted 10/02/20 09:45 Nasopharynx SARS-CoV-2 Antigen (Rapid)([facility]) - Final Complete Laboratory Tests 10/03/20 16:47: Urine Opiates Screen Negative, Urine Barbiturates Screen Negative, Phencyclidine (PCP) Screen Negative, Urine Amphetamines Screen Negative, Urine Benzodiazepines Screen Negative, Urine Cocaine Screen Negative, Urine Marijuana (THC) Screen PositiveH Current Medications Medications (Trade) Dose Ordered Sig/Billy Route PRN Reason Start Time Stop Time Status Last Admin Dose Admin Acetaminophen (Tylenol) 650 mg Q4H PRN ORAL Mild Pain (Pain Scale 1-3) 10/02/20 22:45 11/01/20 22:44 Acetaminophen (Tylenol) 650 mg Q4H PRN ORAL Temp >100.5 10/02/20 22:45 11/01/20 22:44 Acetaminophen/ Hydrocodone Bitart ([place] 5/325) 1 tab Q6H PRN ORAL For Pain 10/02/20 23:00 10/09/20 22:59 10/04/20 04:47 Carbamide Peroxide (Debrox) 5 drop TWICE A DAY BOTH EARS 10/03/20 09:00 11/02/20 08:59 10/03/20 18:09 Dextrose/ Electrolytes 1,000 ml @ 75 mls/hr [id number] IV 10/03/20 17:00 11/02/20 16:59 10/03/20 17:23 Docusate Sodium (Colace) 100 mg THREE TIMES A DAY ORAL 10/03/20 18:00 11/02/20 17:59 10/03/20 17:23 Enoxaparin Sodium (Lovenox) 90 mg EVERY 12 HOURS SUBQ 10/02/20 13:00 12/31/20 12:59 10/03/20 20:08 Escitalopram Oxalate (Lexapro) 10 mg DAILY ORAL 10/03/20 09:00 11/02/20 08:59 10/03/20 09:10 Famotidine (Pepcid) 20 mg BID ORAL 10/03/20 18:00 01/01/21 17:59 10/03/20 17:23 Guaifenesin (Robitussin) 200 mg Q4H PRN ORAL For Cough 10/02/20 23:15 12/31/20 22:59 Iohexol (Omnipaque 350 100ml) 100 ml NOW PRN INJ Radiology Procedure 10/02/20 11:15 10/04/20 11:14 Iron Sucrose 100 mg/Sodium Chloride 60 ml @ 240 mls/hr BEDTIME IVPB 10/04/20 21:00 10/08/20 21:14 Lactulose (Cephulac) 20 gm BID ORAL 10/03/20 09:00 11/02/20 08:59 10/03/20 17:23 Simethicone (Mylicon) 80 mg Q8H PRN ORAL GAS PAIN 10/02/20 23:00 12/31/20 22:59 Sodium Phosphate (Fleet's Sodium Phosl Enema) 133 ml DAILY PRN RECTAL Constipation 10/02/20 23:15 11/02/20 08:59 Assessment/Plan Assessment/Plan 1. Pulmonary embolus - continue full dose Lovenox - Provide supplemental oxygen as needed - coumadin or eliquis prior to dc, per Heme onc - hold off hypercoag w/u, per Heme onc 2. Infiltrates vs atelectasis - COVID-19 Ag negative (10/02) - COVID-19 PCR negative (10/02) - 2nd COVID-19 PCR pending (10/03), per ID - now on Abx per ID - CXR (10/03) slightly improved infiltrates 3. Hypertension - BP control The care for this patient was discussed with my supervising physician. Time spent for this case was approximately 31 minutes. Christopher Ho Oct 04, 2020 09:17
--- NOTE | 2020-10-04 09:44 | NUR ---
RD ASSESSMENT & RECOMMENDATIONS SEE CARE ACTIVITY FOR COMPLETE ASSESSMENT DAILY ESTIMATED NEEDS: Needs based on pulmonary, cardiac/ 69kg abw 23-28 kcals/kg 1031-5115 total kcals 1-1.3 g protein/kg 69-90 g total protein 25-30 mL/kg 3822-9462 total fluid mLs NUTRITION DIAGNOSIS: Altered nutrition related lab values R/T HTN as evidenced by elev BPs (145/87, 156/100, 155/101). CURRENT DIET:REGULAR PO DIET RECOMMENDATIONS: LOW NA/ texture as tolerated ADDITIONAL RECOMMENDATIONS: * Standing wt for accurate CBW * Ensure Enlive x 1 w/ variable intake (350kcal/20g prot) * Monitor PO tolerance and respiratory status: admitted w/ c/o SOB, on room air at this time * Monitor lytes, replete as needed (low K)
[2020-10-04 10:17] LABS: EOSINOPHILS % (AUTO) 0.6 % (0.0-3.0); HEMATOCRIT 31.3 % (37.0-47.0); HEMOGLOBIN 9.1 G/DL (12.0-16.0); MEAN CORPUSCULAR VOLUME 81 FL (80-99); MONOCYTES % (AUTO) 10.1 % (1.0-10.0); NEUTROPHILS % (AUTO) 69.2 % (45.0-75.0); PLATELET COUNT 418 K/UL (150-450); RED BLOOD COUNT 3.85 M/UL (4.20-5.40); RED CELL DISTRIBUTION WIDTH 15.2 % (11.6-14.8); WHITE BLOOD COUNT 7.5 K/UL (4.8-10.8)
[2020-10-04] MEDS: Enoxaparin 100mg Inj SUBQ SCH ×2 (10:17→20:58)
[2020-10-04] MEDS: Carbamide Peroxide 6.5% Ot Sol 15ML BOTH EARS SCH ×2 (10:19→18:37)
[2020-10-04] MEDS: D5NS w/KCl 40mEq 1000ml 1,000 ML IV SCH (10:46)
[2020-10-04 11:01] LABS: ALANINE AMINOTRANSFERASE 13 U/L (12-78); ALBUMIN 2.9 G/DL (3.4-5.0); ALBUMIN/GLOBULIN RATIO 0.6 (1.0-2.7); ALKALINE PHOSPHATASE 86 U/L (46-116); ANION GAP 11 mmol/L (5-15); ASPARTATE AMINO TRANSFERASE 14 U/L (15-37); BILIRUBIN,TOTAL 0.3 MG/DL (0.2-1.0); BLOOD UREA NITROGEN 4 mg/dL (7-18); CALCIUM 8.7 MG/DL (8.5-10.1); CARBON DIOXIDE 22 MMOL/L (21-32); CHLORIDE 106 MMOL/L (98-107); CHOLESTEROL 168 MG/DL (< 200); CREATININE 0.8 MG/DL (0.55-1.30); HDL CHOLESTEROL 53 MG/DL (40-60); POTASSIUM 3.3 MMOL/L (3.5-5.1); SODIUM 138 MMOL/L (136-145); TRIGLYCERIDES 66 MG/DL (30-150)
[2020-10-04 11:03] LABS: CREATINE KINASE 145 U/L (26-308); GAMMA GLUTAMYL TRANSPEPTIDASE 20 U/L (5-85); PHOSPHORUS 2.1 MG/DL (2.5-4.9)
[2020-10-04 12:00] VITALS: BP 145/95
--- NOTE | 2020-10-04 12:31 | Nephrology Progress Note ---
Assessment/Plan Problem List: (1) Iron deficiency anemia (2) Electrolyte imbalance (3) Pulmonary embolism (4) Pneumonia Assessment Hypokalemia pneumonia Pulmonary embolism Fever Hypertension Iron deficiency anemia Plan October 04: IV iron started. Low potassium and low phosphorus addressed. Continue per consultants. Medication list reviewed. Previously: IV fluid with potassium supplement Keep the blood pressure in check Continue per consultants Subjective ROS Limited/Unobtainable: No Constitutional: Reports: malaise Objective Objective Last 24 Hour Vital Signs Date Time Temp Pulse Resp B/P (MAP) Pulse Ox O2 Delivery O2 Flow Rate FiO2 10/04/20 08:00 97.7 109 18 145/87 (106) 97 10/04/20 05:17 99.2 10/04/20 04:00 93 10/04/20 04:00 99.4 82 16 133/80 (97) 96 10/04/20 00:00 97.7 69 17 140/76 (97) 95 10/03/20 21:00 Room Air 10/03/20 20:55 99.4 82 16 133/80 (97) 96 10/03/20 20:00 85 10/03/20 16:00 98.1 102 18 156/110 (125) 97 10/03/20 16:00 91 Intake and Output 10/03/20 10/04/20 19:00 07:00 Intake Total 240 ml Balance 240 ml Intake Oral 240 ml # Voids 4 4 Current Medications Medications (Trade) Dose Ordered Sig/Billy Route PRN Reason Start Time Stop Time Status Last Admin Dose Admin Acetaminophen (Tylenol) 650 mg Q4H PRN ORAL Mild Pain (Pain Scale 1-3) 10/02/20 22:45 11/01/20 22:44 Acetaminophen (Tylenol) 650 mg Q4H PRN ORAL Temp >100.5 10/02/20 22:45 11/01/20 22:44 Acetaminophen/ Hydrocodone Bitart ([place] 5/325) 1 tab Q6H PRN ORAL For Pain 10/02/20 23:00 10/09/20 22:59 10/04/20 04:47 Carbamide Peroxide (Debrox) 5 drop TWICE A DAY BOTH EARS 10/03/20 09:00 11/02/20 08:59 10/04/20 10:19 Dextrose/ Electrolytes 1,000 ml @ 75 mls/hr [id number] IV 10/03/20 17:00 11/02/20 16:59 10/04/20 10:46 Docusate Sodium (Colace) 100 mg THREE TIMES A DAY ORAL 10/03/20 18:00 11/02/20 17:59 10/03/20 17:23 Enoxaparin Sodium (Lovenox) 90 mg EVERY 12 HOURS SUBQ 10/02/20 13:00 12/31/20 12:59 10/04/20 10:17 Escitalopram Oxalate (Lexapro) 10 mg DAILY ORAL 10/03/20 09:00 11/02/20 08:59 10/04/20 10:17 Famotidine (Pepcid) 20 mg BID ORAL 10/03/20 18:00 01/01/21 17:59 10/03/20 17:23 Guaifenesin (Robitussin) 200 mg Q4H PRN ORAL For Cough 10/02/20 23:15 12/31/20 22:59 Iron Sucrose 100 mg/Sodium Chloride 60 ml @ 240 mls/hr BEDTIME IVPB 10/04/20 21:00 10/08/20 21:14 Iron Sucrose 100 mg/Sodium Chloride 60 ml @ 240 mls/hr BEDTIME IVPB 10/05/20 21:00 10/09/20 21:14 UNV Iron Sucrose 200 mg/Sodium Chloride 120 ml @ 240 mls/hr ONCE ONCE IVPB 10/04/20 12:30 10/04/20 12:59 UNV Lactulose (Cephulac) 20 gm BID ORAL 10/03/20 09:00 11/02/20 08:59 10/03/20 17:23 Simethicone (Mylicon) 80 mg Q8H PRN ORAL GAS PAIN 10/02/20 23:00 12/31/20 22:59 Sodium Phosphate (Fleet's Sodium Phosl Enema) 133 ml DAILY PRN RECTAL Constipation 10/02/20 23:15 11/02/20 08:59 Laboratory Tests 10/03/20 16:47: Urine Opiates Screen Negative, Urine Barbiturates Screen Negative, Phencyclidine (PCP) Screen Negative, Urine Amphetamines Screen Negative, Urine Benzodiazepines Screen Negative, Urine Cocaine Screen Negative, Urine Marijuana (THC) Screen PositiveH 10/04/20 09:41: White Blood Count 7.5, Red Blood Count 3.85L, Hemoglobin 9.1L, Hematocrit 31.3L, Mean Corpuscular Volume 81, Mean Corpuscular Hemoglobin 23.5L, Mean Corpuscular Hemoglobin Concent 28.9L, Red Cell Distribution Width 15.2H, Platelet Count 418, Mean Platelet Volume 7.0, Neutrophils (%) (Auto) 69.2, Lymphocytes (%) (Auto) 19.0L, Monocytes (%) (Auto) 10.1H, Eosinophils (%) (Auto) 0.6, Basophils (%) (Auto) 1.0, Sodium Level 138, Potassium Level 3.3L, Chloride Level 106, Carbon Dioxide Level 22, Anion Gap 11, Blood Urea Nitrogen 4L, Creatinine 0.8, Estimat Glomerular Filtration Rate > 60, Glucose Level 98, Lactic Acid Level 2.00, Uric Acid 2.4L, Calcium Level 8.7, Phosphorus Level 2.1L, Magnesium Level 2.1, Total Bilirubin 0.3, Gamma Glutamyl Transpeptidase 20, Aspartate Amino Transf (AST/SGOT) 14L, Alanine Aminotransferase (ALT/SGPT) 13, Alkaline Phosphatase 86, Total Creatine Kinase 145, C-Reactive Protein, Quantitative 6.1H, Pro-B-Type Natriuretic Peptide 132H, Total Protein 7.9, Albumin 2.9L, Globulin 5.0, Albumin/Globulin Ratio 0.6L, Triglycerides Level 66, Cholesterol Level 168, LDL Cholesterol 100, HDL Cholesterol 53, Cholesterol/HDL Ratio 3.2L, Vitamin B12 Level 531, Vitamin D 25-Hydroxy [Pending], 25-Hydroxy Vitamin D2 [Pending], 25- Hydroxy Vitamin D3 [Pending], Folate 21.9, Thyroid Stimulating Hormone (TSH) 1.464 Height (Feet): 5 Height (Inches): 7.00 Weight (Pounds): 1988 General Appearance: no apparent distress Cardiovascular: tachycardia Respiratory/Chest: decreased breath sounds Abdomen: distended Iraj Tim MD Oct 04, 2020 12:31
--- NOTE | 2020-10-04 13:21 | General Progress Note ---
Subjective Constitutional: Reports: weakness Allergies: Coded Allergies: No Known Allergies (Verified Allergy, Mild, 01/17/09) All Systems: reviewed and negative except above Subjective sleepy calm Objective Last 24 Hour Vital Signs Date Time Temp Pulse Resp B/P (MAP) Pulse Ox O2 Delivery O2 Flow Rate FiO2 10/04/20 08:00 97.7 109 18 145/87 (106) 97 10/04/20 05:17 99.2 10/04/20 04:00 93 10/04/20 04:00 99.4 82 16 133/80 (97) 96 10/04/20 00:00 97.7 69 17 140/76 (97) 95 10/03/20 21:00 Room Air 10/03/20 20:55 99.4 82 16 133/80 (97) 96 10/03/20 20:00 85 10/03/20 16:00 98.1 102 18 156/110 (125) 97 10/03/20 16:00 91 Intake and Output 10/03/20 10/04/20 19:00 07:00 Intake Total 240 ml Balance 240 ml Intake Oral 240 ml # Voids 4 4 Laboratory Tests 10/03/20 16:47: Urine Opiates Screen Negative, Urine Barbiturates Screen Negative, Phencyclidine (PCP) Screen Negative, Urine Amphetamines Screen Negative, Urine Benzodiazepines Screen Negative, Urine Cocaine Screen Negative, Urine Marijuana (THC) Screen PositiveH 10/04/20 09:41: White Blood Count 7.5, Red Blood Count 3.85L, Hemoglobin 9.1L, Hematocrit 31.3L, Mean Corpuscular Volume 81, Mean Corpuscular Hemoglobin 23.5L, Mean Corpuscular Hemoglobin Concent 28.9L, Red Cell Distribution Width 15.2H, Platelet Count 418, Mean Platelet Volume 7.0, Neutrophils (%) (Auto) 69.2, Lymphocytes (%) (Auto) 19.0L, Monocytes (%) (Auto) 10.1H, Eosinophils (%) (Auto) 0.6, Basophils (%) (Auto) 1.0, Sodium Level 138, Potassium Level 3.3L, Chloride Level 106, Carbon Dioxide Level 22, Anion Gap 11, Blood Urea Nitrogen 4L, Creatinine 0.8, Estimat Glomerular Filtration Rate > 60, Glucose Level 98, Lactic Acid Level 2.00, Uric Acid 2.4L, Calcium Level 8.7, Phosphorus Level 2.1L, Magnesium Level 2.1, Total Bilirubin 0.3, Gamma Glutamyl Transpeptidase 20, Aspartate Amino Transf (AST/SGOT) 14L, Alanine Aminotransferase (ALT/SGPT) 13, Alkaline Phosphatase 86, Total Creatine Kinase 145, C-Reactive Protein, Quantitative 6.1H, Pro-B-Type Natriuretic Peptide 132H, Total Protein 7.9, Albumin 2.9L, Globulin 5.0, Albumin/Globulin Ratio 0.6L, Triglycerides Level 66, Cholesterol Level 168, LDL Cholesterol 100, HDL Cholesterol 53, Cholesterol/HDL Ratio 3.2L, Vitamin B12 Level 531, Vitamin D 25-Hydroxy [Pending], 25-Hydroxy Vitamin D2 [Pending], 25- Hydroxy Vitamin D3 [Pending], Folate 21.9, Thyroid Stimulating Hormone (TSH) 1.464 Height (Feet): 5 Height (Inches): 7.00 Weight (Pounds): 1986 General Appearance: lethargic EENT: normal ENT inspection Neck: normal alignment Cardiovascular: normal peripheral pulses, normal rate, regular rhythm Respiratory/Chest: chest wall non-tender, lungs clear, normal breath sounds Abdomen: normal bowel sounds, non tender, soft Extremities: normal inspection Edema: no edema noted Arm (L), no edema noted Arm (R), no edema noted Leg (L), no edema noted Leg (R), no edema noted Pedal (L), no edema noted Pedal (R), no edema noted Generalized Neurologic: motor weakness Skin: normal pigmentation, warm/dry Assessment/Plan Problem List: (1) UTI (urinary tract infection) ICD Codes: N39.0 - Urinary tract infection, site not specified SNOMED: 61282972 (2) Anemia ICD Codes: D64.9 - Anemia, unspecified SNOMED: 075902294 (3) HTN (hypertension) ICD Codes: I10 - Essential (primary) hypertension SNOMED: 86285786 (4) Pulmonary embolism ICD Codes: I26.99 - Other pulmonary embolism without acute cor pulmonale SNOMED: 40708901 (5) Pneumonia ICD Codes: J18.9 - Pneumonia, unspecified organism SNOMED: 244309800 Status: unchanged Assessment/Plan: o2 pulm tx abx antocoag cbc bmp am Lee Johnson DO Oct 04, 2020 13:21
[2020-10-04] MEDS: Docusate 100mg cap ORAL SCH ×2 (13:56→18:36)
[2020-10-04] MEDS ORDERED: Iron Sucrose 200 MG in NS 110 ML IVPB ONE (14:00)
[2020-10-04] MEDS ORDERED: Potassium Phosphate 20 MM in NS 275 ML IV ONE (14:00)
[2020-10-04 16:00] VITALS: BP 140/78
[2020-10-04] MEDS: Lactulose 20gm/30ml UDC ORAL SCH (18:37)
--- NOTE | 2020-10-04 19:10 | NUR ---
NURSE NOTES: Received report from AIDA cam. Pt is A/O x4 and verbally responsive. Pt is ambulatory and continent of both bowel and bladder. Pt is on RA with no SOB or acute distress noted. No pain noted at this time. Pt bed in lowest position and locked with side rails x2. Call light placed within reach. Will continue plan of care.
[2020-10-04 20:00] VITALS: BP 138/83
--- NOTE | 2020-10-04 20:53 | NUR ---
NURSE HAND-OFF REPORT: Important Events on Shift:[]pt in stable condition Patient Status: []full code Diet: []regular Pending Orders: [] Pending Results/Labs:[] Pending MD notification:[] Latest Vital Signs: Temperature 97.6 , Pulse 98 , B/P 140 /78 , Respiratory Rate 20 , O2 SAT 97 , Room Air, O2 Flow Rate . Vital Sign Comment: [] EKG Rhythm: Sinus Rhythm Rhythm change?: N MD Notified?: - MD Response: Latest Pate Fall Score: 20 Fall Risk: Low Risk Safety Measures: Call light Within Reach, Bed Alarm Zone 1, Side Rails Side Rails x2, Bed position Low and Locked. Fall Precautions: y Yellow Socks y Yellow Gown y Patient Fall Education y Report given to []Yessenia/AIDA
[2020-10-04] MEDS ORDERED: Iron Sucrose 100 MG in NS 55 ML IVPB SCH (21:00)
--- NOTE | 2020-10-04 21:00 | NUR ---
NURSE NOTES: pt complain about pain i gave her Hydrocodone
--- NOTE | 2020-10-04 21:50 | NUR ---
RD ASSESSMENT PATIENT WATCHING TV, RESTING, NO PAIN
[2020-10-05] VITALS (7 sets, daily range): BP systolic 127–147; BP diastolic 84–97
[2020-10-05 06:47] LABS: BASOPHILS % (AUTO) 1.3 % (0.0-2.0); EOSINOPHILS % (AUTO) 1.1 % (0.0-3.0); HEMATOCRIT 32.4 % (37.0-47.0); HEMOGLOBIN 9.6 G/DL (12.0-16.0); LYMPHOCYTES % (AUTO) 19.4 % (20.0-45.0); MEAN CORPUSCULAR VOLUME 80 FL (80-99); MONOCYTES % (AUTO) 8.9 % (1.0-10.0); NEUTROPHILS % (AUTO) 69.4 % (45.0-75.0); PLATELET COUNT 421 K/UL (150-450); RED BLOOD COUNT 4.06 M/UL (4.20-5.40); RED CELL DISTRIBUTION WIDTH 14.6 % (11.6-14.8); WHITE BLOOD COUNT 7.6 K/UL (4.8-10.8)
[2020-10-05 07:02] LABS: ANION GAP 8 mmol/L (5-15); BLOOD UREA NITROGEN 7 mg/dL (7-18); CALCIUM 8.8 MG/DL (8.5-10.1); CARBON DIOXIDE 24 MMOL/L (21-32); CHLORIDE 107 MMOL/L (98-107); CREATININE 0.7 MG/DL (0.55-1.30); POTASSIUM 3.7 MMOL/L (3.5-5.1); SODIUM 139 MMOL/L (136-145)
--- NOTE | 2020-10-05 07:49 | Infectious Diseases Prog Note ---
Assessment/Plan 44 yo female with PMHx of HTN who presented to the ED on 10/02/20 with SOB. The patient reports SOB with abd pain for the last few days. PNA R/O COVID 19 COVID 19 Ag Neg 10/02/20 Sars COV2 PCR 10/02/20 - Neg Fever No leukocytosis PE - Fam Hx of coagulopathy CTA 10/02/20 - STUDY POSITIVE FOR PULMONARY EMBOLUS IN A SUBSEGMENTAL BRANCH OF THE LEFT LOWER LOBE. DEPENDENT INFILTRATES LEFT LUNG BASE WITH TINY LEFT EFFUSION. ALSO MILD INFLAMMATORY CHANGES POSTERIOR RIGHT LUNG BASE. HTN PLAN - 10/05/20 Azithromycin #3/3 and Ceftriaxone #3/3 - f/u 2nd SARS COV 2 PCR - Monitor Resp status - Monitor CBC and Temps Thank you for this consult. [facility] will continue to follow Ms. Prieto while she is hospitalized Subjective Allergies: Coded Allergies: No Known Allergies (Verified Allergy, Mild, 01/17/09) Afebrile Satting well on RA No Leukocytosis 2nd COVID19 PCR pend Objective Last 24 Hour Vital Signs Date Time Temp Pulse Resp B/P (MAP) Pulse Ox O2 Delivery O2 Flow Rate FiO2 10/05/20 04:00 98.0 78 20 147/90 (109) 98 10/05/20 04:00 73 10/05/20 00:00 97.2 78 20 131/90 (104) 97 10/04/20 21:00 Room Air 10/04/20 20:00 98.4 78 20 138/83 (101) 98 10/04/20 20:00 87 10/04/20 16:00 97.6 98 20 140/78 (98) 97 10/04/20 16:00 81 10/04/20 12:00 97.9 86 20 145/95 (112) 98 10/04/20 12:00 107 10/04/20 09:00 Room Air 10/04/20 08:00 88 10/04/20 08:00 97.7 109 18 145/87 (106) 97 Height (Feet): 5 Height (Inches): 7.00 Weight (Pounds): 1986 Gen: NAD on RA HEENT: NCAT, MMM, EOMI Pulm: RRR, No accessory muscle use Abd: Soft, ND, Microbiology Date/Time Source Procedure Growth Status 10/02/20 13:35 Nasopharynx Coronavirus COVID-19 PCR ([facility]) - Final Complete 10/02/20 10:10 Blood Blood Culture - Preliminary NO GROWTH AFTER 48 HOURS Resulted 10/02/20 10:10 Blood Blood Culture - Preliminary NO GROWTH AFTER 48 HOURS Resulted 10/02/20 09:45 Nasopharynx SARS-CoV-2 Antigen (Rapid)([facility]) - Final Complete Laboratory Tests Test 10/04/20 09:41 10/05/20 06:06 White Blood Count 7.5 K/UL (4.8-10.8) 7.6 K/UL (4.8-10.8) Red Blood Count 3.85 M/UL (4.20-5.40) L 4.06 M/UL (4.20-5.40) L Hemoglobin 9.1 G/DL (12.0-16.0) L 9.6 G/DL (12.0-16.0) L Hematocrit 31.3 % (37.0-47.0) L 32.4 % (37.0-47.0) L Mean Corpuscular Volume 81 FL (80-99) 80 FL (80-99) Mean Corpuscular Hemoglobin 23.5 PG (27.0-31.0) L 23.5 PG (27.0-31.0) L Mean Corpuscular Hemoglobin Concent 28.9 G/DL (32.0-36.0) L 29.5 G/DL (32.0-36.0) L Red Cell Distribution Width 15.2 % (11.6-14.8) H 14.6 % (11.6-14.8) Platelet Count 418 K/UL (150-450) 421 K/UL (150-450) Mean Platelet Volume 7.0 FL (6.5-10.1) 6.6 FL (6.5-10.1) Neutrophils (%) (Auto) 69.2 % (45.0-75.0) 69.4 % (45.0-75.0) Lymphocytes (%) (Auto) 19.0 % (20.0-45.0) L 19.4 % (20.0-45.0) L Monocytes (%) (Auto) 10.1 % (1.0-10.0) H 8.9 % (1.0-10.0) Eosinophils (%) (Auto) 0.6 % (0.0-3.0) 1.1 % (0.0-3.0) Basophils (%) (Auto) 1.0 % (0.0-2.0) 1.3 % (0.0-2.0) Sodium Level 138 MMOL/L (136-145) 139 MMOL/L (136-145) Potassium Level 3.3 MMOL/L (3.5-5.1) L 3.7 MMOL/L (3.5-5.1) Chloride Level 106 MMOL/L (98-107) 107 MMOL/L (98-107) Carbon Dioxide Level 22 MMOL/L (21-32) 24 MMOL/L (21-32) Anion Gap 11 mmol/L (5-15) 8 mmol/L (5-15) Blood Urea Nitrogen 4 mg/dL (7-18) L 7 mg/dL (7-18) Creatinine 0.8 MG/DL (0.55-1.30) 0.7 MG/DL (0.55-1.30) Estimat Glomerular Filtration Rate > 60 mL/min (>60) > 60 mL/min (>60) Glucose Level 98 MG/DL (74-106) 95 MG/DL (74-106) Lactic Acid Level 2.00 mmol/L (0.4-2.0) Uric Acid 2.4 MG/DL (2.6-7.2) L Calcium Level 8.7 MG/DL (8.5-10.1) 8.8 MG/DL (8.5-10.1) Phosphorus Level 2.1 MG/DL (2.5-4.9) L Magnesium Level 2.1 MG/DL (1.8-2.4) Total Bilirubin 0.3 MG/DL (0.2-1.0) Gamma Glutamyl Transpeptidase 20 U/L (5-85) Aspartate Amino Transf (AST/SGOT) 14 U/L (15-37) L Alanine Aminotransferase (ALT/SGPT) 13 U/L (12-78) Alkaline Phosphatase 86 U/L (46-116) Total Creatine Kinase 145 U/L (26-308) C-Reactive Protein, Quantitative 6.1 mg/dL (0.00-0.90) H Pro-B-Type Natriuretic Peptide 132 pg/mL (0-125) H Total Protein 7.9 G/DL (6.4-8.2) Albumin 2.9 G/DL (3.4-5.0) L Globulin 5.0 g/dL Albumin/Globulin Ratio 0.6 (1.0-2.7) L Triglycerides Level 66 MG/DL (30-150) Cholesterol Level 168 MG/DL (< 200) LDL Cholesterol 100 mg/dL (<100) HDL Cholesterol 53 MG/DL (40-60) Cholesterol/HDL Ratio 3.2 (3.3-4.4) L Vitamin B12 Level 531 PG/ML (193-986) Vitamin D 25-Hydroxy Pending 25-Hydroxy Vitamin D2 Pending 25-Hydroxy Vitamin D3 Pending Folate 21.9 NG/ML (8.6-58.9) Thyroid Stimulating Hormone (TSH) 1.464 uiU/mL (0.358-3.740) Current Medications Medications (Trade) Dose Ordered Sig/Billy Route PRN Reason Start Time Stop Time Status Last Admin Dose Admin Acetaminophen (Tylenol) 650 mg Q4H PRN ORAL Mild Pain (Pain Scale 1-3) 10/02/20 22:45 11/01/20 22:44 10/05/20 04:28 Acetaminophen (Tylenol) 650 mg Q4H PRN ORAL Temp >100.5 10/02/20 22:45 11/01/20 22:44 Acetaminophen/ Hydrocodone Bitart ([place] 5/325) 1 tab Q6H PRN ORAL For Pain 10/02/20 23:00 10/09/20 22:59 10/04/20 04:47 Carbamide Peroxide (Debrox) 5 drop TWICE A DAY BOTH EARS 10/03/20 09:00 11/02/20 08:59 10/04/20 18:37 Dextrose/ Electrolytes 1,000 ml @ 75 mls/hr [id number] IV 10/03/20 17:00 11/02/20 16:59 10/04/20 10:46 Docusate Sodium (Colace) 100 mg THREE TIMES A DAY ORAL 10/03/20 18:00 11/02/20 17:59 10/04/20 18:36 Enoxaparin Sodium (Lovenox) 90 mg EVERY 12 HOURS SUBQ 10/02/20 13:00 12/31/20 12:59 10/04/20 20:58 Escitalopram Oxalate (Lexapro) 10 mg DAILY ORAL 10/03/20 09:00 11/02/20 08:59 10/04/20 10:17 Famotidine (Pepcid) 20 mg BID ORAL 10/03/20 18:00 01/01/21 17:59 10/04/20 18:36 Guaifenesin (Robitussin) 200 mg Q4H PRN ORAL For Cough 10/02/20 23:15 12/31/20 22:59 Iron Sucrose 100 mg/Sodium Chloride 60 ml @ 240 mls/hr BEDTIME IVPB 10/05/20 21:00 10/09/20 21:14 Lactulose (Cephulac) 20 gm BID ORAL 10/03/20 09:00 11/02/20 08:59 10/04/20 18:37 Simethicone (Mylicon) 80 mg Q8H PRN ORAL GAS PAIN 10/02/20 23:00 12/31/20 22:59 Sodium Phosphate (Fleet's Sodium Phosl Enema) 133 ml DAILY PRN RECTAL Constipation 10/02/20 23:15 11/02/20 08:59 Guevara Tanner MD Oct 05, 2020 07:49
[2020-10-05] MEDS: HYDROcodone/Acetamin 5/325 tab ORAL PRN ×2 (07:58→09:41)
--- NOTE | 2020-10-05 08:32 | NUR ---
NURSE NOTES: pt. in bed awake and complaining of headache. pt. on lunchroom monitor no signs of cardiac or respiratory distress at this time. Bed is locked and in lowest position. Call light within reach. Will continue to monitor pt.
--- NOTE | 2020-10-05 08:54 | Hematology/Onc Progress Note ---
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 -> anemia panel has been ordered->reviewed, ferritin 6 --> hgb 10-->8-->9.6 --> iv iron x 5 days started --> transfuse prn --> true Rn # Infiltrates vs atelectasis --> COVID-19 antigen negative (10/02) --> repeat COVID-19 PCR ordered (10/02) # Hypertension --> BP control # Dvt ppx lovenox bid Appreciate consultation and true [place] Subjective HEENT: Denies: no symptoms, eye pain, blurred vision, tearing, double vision, ear pain, ear discharge, nose pain, nose congestion, throat pain, throat swelling, mouth pain, mouth swelling, other Cardiovascular: Denies: no symptoms, chest pain, edema, irregular heart rate, lightheadedness, palpitations, syncope, other Respiratory: Denies: no symptoms, cough, shortness of breath, SOB with excertion, SOB at rest, sputum, wheezing, other Gastrointestinal/Abdominal: Denies: no symptoms, abdomen distended, abdominal pain, black stools, tarry stools, blood in stool, constipated, diarrhea, difficulty swallowing, nausea, poor appetite, poor fluid intake, rectal bleeding, vomiting, other Genitourinary: Denies: no symptoms, burning, discharge, frequency, flank pain, hematuria, incontinence, pain, urgency, other Neurologic/Psychiatric: Denies: no symptoms, anxiety, depressed, emotional problems, headache, numbness, paresthesia, pre-existing deficit, seizure, tingling, tremors, weakness, other Endocrine: Denies: no symptoms, excessive sweating, flushing, intolerance to cold, intolerance to heat, increased hunger, increased thirst, increased urine, unexplained weight gain, unexplained weight loss, other Allergies: Coded Allergies: No Known Allergies (Verified Allergy, Mild, 01/17/09) Subjective 10/03 responsive, on ra, is on iv iron now, hgb noted 10/04 labs reviewed, meds noted, h/h stable 10/05 no night sweats, dw rn, no bleeding, cbc noted Objective Objective Current Medications Medications (Trade) Dose Ordered Sig/Billy Route PRN Reason Start Time Stop Time Status Last Admin Dose Admin Acetaminophen (Tylenol) 650 mg Q4H PRN ORAL Mild Pain (Pain Scale 1-3) 10/02/20 22:45 11/01/20 22:44 10/05/20 04:28 Acetaminophen (Tylenol) 650 mg Q4H PRN ORAL Temp >100.5 10/02/20 22:45 11/01/20 22:44 Acetaminophen/ Hydrocodone Bitart ([place] 5/325) 1 tab Q6H PRN ORAL For Pain 10/02/20 23:00 10/09/20 22:59 10/05/20 07:58 Carbamide Peroxide (Debrox) 5 drop TWICE A DAY BOTH EARS 10/03/20 09:00 11/02/20 08:59 10/04/20 18:37 Dextrose/ Electrolytes 1,000 ml @ 75 mls/hr [id number] IV 10/03/20 17:00 11/02/20 16:59 10/04/20 10:46 Docusate Sodium (Colace) 100 mg THREE TIMES A DAY ORAL 10/03/20 18:00 11/02/20 17:59 10/04/20 18:36 Enoxaparin Sodium (Lovenox) 90 mg EVERY 12 HOURS SUBQ 10/02/20 13:00 12/31/20 12:59 10/04/20 20:58 Escitalopram Oxalate (Lexapro) 10 mg DAILY ORAL 10/03/20 09:00 11/02/20 08:59 10/04/20 10:17 Famotidine (Pepcid) 20 mg BID ORAL 10/03/20 18:00 01/01/21 17:59 10/04/20 18:36 Guaifenesin (Robitussin) 200 mg Q4H PRN ORAL For Cough 10/02/20 23:15 12/31/20 22:59 Iron Sucrose 100 mg/Sodium Chloride 60 ml @ 240 mls/hr BEDTIME IVPB 10/05/20 21:00 10/09/20 21:14 Lactulose (Cephulac) 20 gm BID ORAL 10/03/20 09:00 11/02/20 08:59 10/04/20 18:37 Simethicone (Mylicon) 80 mg Q8H PRN ORAL GAS PAIN 10/02/20 23:00 12/31/20 22:59 Sodium Phosphate (Fleet's Sodium Phosl Enema) 133 ml DAILY PRN RECTAL Constipation 10/02/20 23:15 11/02/20 08:59 Last 24 Hour Vital Signs Date Time Temp Pulse Resp B/P (MAP) Pulse Ox O2 Delivery O2 Flow Rate FiO2 10/05/20 04:00 98.0 78 20 147/90 (109) 98 10/05/20 04:00 73 10/05/20 00:00 97.2 78 20 131/90 (104) 97 10/04/20 21:00 Room Air 10/04/20 20:00 98.4 78 20 138/83 (101) 98 10/04/20 20:00 87 10/04/20 16:00 97.6 98 20 140/78 (98) 97 10/04/20 16:00 81 10/04/20 12:00 97.9 86 20 145/95 (112) 98 10/04/20 12:00 107 10/04/20 09:00 Room Air 10/04/20 08:00 88 10/04/20 08:00 97.7 109 18 145/87 (106) 97 10/04/20 05:17 99.2 10/04/20 04:00 93 10/04/20 04:00 99.4 82 16 133/80 (97) 96 10/04/20 00:00 97.7 69 17 140/76 (97) 95 10/03/20 21:00 Room Air 10/03/20 20:55 99.4 82 16 133/80 (97) 96 10/03/20 20:00 85 10/03/20 16:00 98.1 102 18 156/110 (125) 97 10/03/20 16:00 91 10/03/20 12:00 98.6 102 20 155/101 (119) 98 10/03/20 12:00 98 10/03/20 09:00 Room Air Intake and Output 10/04/20 10/05/20 19:00 07:00 Intake Total 1440 ml 1200 ml Balance 1440 ml 1200 ml Intake Oral 1440 ml 1200 ml # Voids 7 4 Labs Test 10/02/20 09:45 10/02/20 10:10 10/03/20 06:26 10/03/20 16:47 White Blood Count 9.8 K/UL (4.8-10.8) 9.0 K/UL (4.8-10.8) Red Blood Count 4.29 M/UL (4.20-5.40) 3.59 M/UL (4.20-5.40) Hemoglobin 10.1 G/DL (12.0-16.0) 8.7 G/DL (12.0-16.0) Hematocrit 34.7 % (37.0-47.0) 29.0 % (37.0-47.0) Mean Corpuscular Volume 81 FL (80-99) 81 FL (80-99) Mean Corpuscular Hemoglobin 23.6 PG (27.0-31.0) 24.2 PG (27.0-31.0) Mean Corpuscular Hemoglobin Concent 29.2 G/DL (32.0-36.0) 30.0 G/DL (32.0-36.0) Red Cell Distribution Width 15.4 % (11.6-14.8) 15.1 % (11.6-14.8) Platelet Count 402 K/UL (150-450) 348 K/UL (150-450) Mean Platelet Volume 6.8 FL (6.5-10.1) 6.7 FL (6.5-10.1) Neutrophils (%) (Auto) 71.1 % (45.0-75.0) 65.1 % (45.0-75.0) Lymphocytes (%) (Auto) 19.0 % (20.0-45.0) 24.1 % (20.0-45.0) Monocytes (%) (Auto) 8.7 % (1.0-10.0) 9.7 % (1.0-10.0) Eosinophils (%) (Auto) 0.3 % (0.0-3.0) 0.5 % (0.0-3.0) Basophils (%) (Auto) 0.9 % (0.0-2.0) 0.7 % (0.0-2.0) Urine Color Yellow Urine Appearance Clear Urine pH 6 (4.5-8.0) Urine Specific [place] 1.015 (1.005-1.035) Urine Protein 1+ (NEGATIVE) Urine Glucose (UA) Negative (NEGATIVE) Urine Ketones Negative (NEGATIVE) Urine Blood 4+ (NEGATIVE) Urine Nitrite Negative (NEGATIVE) Urine Bilirubin Negative (NEGATIVE) Urine Urobilinogen Normal MG/DL (0.0-1.0) Urine Leukocyte Esterase 2+ (NEGATIVE) Urine RBC 2-4 /HPF (0 - 2) Urine WBC 2-4 /HPF (0 - 2) Urine Squamous Epithelial Cells Few /LPF (NONE/OCC) Urine Bacteria Few /HPF (NONE) Sodium Level 140 MMOL/L (136-145) 139 MMOL/L (136-145) Potassium Level 3.9 MMOL/L (3.5-5.1) 3.2 MMOL/L (3.5-5.1) Chloride Level 107 MMOL/L (98-107) 106 MMOL/L (98-107) Carbon Dioxide Level 25 MMOL/L (21-32) 21 MMOL/L (21-32) Anion Gap 8 mmol/L (5-15) 12 mmol/L (5-15) Blood Urea Nitrogen 11 mg/dL (7-18) 9 mg/dL (7-18) Creatinine 0.8 MG/DL (0.55-1.30) 0.8 MG/DL (0.55-1.30) Estimat Glomerular Filtration Rate > 60 mL/min (>60) > 60 mL/min (>60) Glucose Level 91 MG/DL (74-106) 91 MG/DL (74-106) Calcium Level 8.7 MG/DL (8.5-10.1) 7.9 MG/DL (8.5-10.1) Ferritin 6 NG/ML (8-388) Total Bilirubin 0.5 MG/DL (0.2-1.0) Aspartate Amino Transf (AST/SGOT) 25 U/L (15-37) Alanine Aminotransferase (ALT/SGPT) 20 U/L (12-78) Alkaline Phosphatase 88 U/L (46-116) Lactate Dehydrogenase 270 U/L (81-234) Total Creatine Kinase 223 U/L (26-308) Creatine Kinase MB < 0.5 NG/ML (0.0-3.6) Creatine Kinase MB Relative Index 0.2 Troponin I 0.000 ng/mL (0.000-0.056) C-Reactive Protein, Quantitative 3.9 mg/dL (0.00-0.90) Pro-B-Type Natriuretic Peptide 79 pg/mL (0-125) Total Protein 8.5 G/DL (6.4-8.2) Albumin 3.4 G/DL (3.4-5.0) Globulin 5.1 g/dL Albumin/Globulin Ratio 0.7 (1.0-2.7) Lipase 139 U/L (73-393) Prothrombin Time 11.3 SEC (9.30-11.50) Prothromb Time International Ratio 1.0 (0.9-1.1) Activated Partial Thromboplast Time 26 SEC (23-33) D-Dimer 1.33 mg/L FEU (0.00-0.49) Lactic Acid Level 1.20 mmol/L (0.4-2.0) Iron Level 20 ug/dL (50-175) Total Iron Binding Capacity 385 ug/dL (250-450) Percent Iron Saturation 5 % (15-50) Unsaturated Iron Binding 365 ug/dL (112-346) Urine Opiates Screen Negative (NEGATIVE) Urine Barbiturates Screen Negative (NEGATIVE) Phencyclidine (PCP) Screen Negative (NEGATIVE) Urine Amphetamines Screen Negative (NEGATIVE) Urine Benzodiazepines Screen Negative (NEGATIVE) Urine Cocaine Screen Negative (NEGATIVE) Urine Marijuana (THC) Screen Positive (NEGATIVE) Test 10/04/20 09:41 10/05/20 06:06 White Blood Count 7.5 K/UL (4.8-10.8) 7.6 K/UL (4.8-10.8) Red Blood Count 3.85 M/UL (4.20-5.40) 4.06 M/UL (4.20-5.40) Hemoglobin 9.1 G/DL (12.0-16.0) 9.6 G/DL (12.0-16.0) Hematocrit 31.3 % (37.0-47.0) 32.4 % (37.0-47.0) Mean Corpuscular Volume 81 FL (80-99) 80 FL (80-99) Mean Corpuscular Hemoglobin 23.5 PG (27.0-31.0) 23.5 PG (27.0-31.0) Mean Corpuscular Hemoglobin Concent 28.9 G/DL (32.0-36.0) 29.5 G/DL (32.0-36.0) Red Cell Distribution Width 15.2 % (11.6-14.8) 14.6 % (11.6-14.8) Platelet Count 418 K/UL (150-450) 421 K/UL (150-450) Mean Platelet Volume 7.0 FL (6.5-10.1) 6.6 FL (6.5-10.1) Neutrophils (%) (Auto) 69.2 % (45.0-75.0) 69.4 % (45.0-75.0) Lymphocytes (%) (Auto) 19.0 % (20.0-45.0) 19.4 % (20.0-45.0) Monocytes (%) (Auto) 10.1 % (1.0-10.0) 8.9 % (1.0-10.0) Eosinophils (%) (Auto) 0.6 % (0.0-3.0) 1.1 % (0.0-3.0) Basophils (%) (Auto) 1.0 % (0.0-2.0) 1.3 % (0.0-2.0) Sodium Level 138 MMOL/L (136-145) 139 MMOL/L (136-145) Potassium Level 3.3 MMOL/L (3.5-5.1) 3.7 MMOL/L (3.5-5.1) Chloride Level 106 MMOL/L (98-107) 107 MMOL/L (98-107) Carbon Dioxide Level 22 MMOL/L (21-32) 24 MMOL/L (21-32) Anion Gap 11 mmol/L (5-15) 8 mmol/L (5-15) Blood Urea Nitrogen 4 mg/dL (7-18) 7 mg/dL (7-18) Creatinine 0.8 MG/DL (0.55-1.30) 0.7 MG/DL (0.55-1.30) Estimat Glomerular Filtration Rate > 60 mL/min (>60) > 60 mL/min (>60) Glucose Level 98 MG/DL (74-106) 95 MG/DL (74-106) Lactic Acid Level 2.00 mmol/L (0.4-2.0) Uric Acid 2.4 MG/DL (2.6-7.2) Calcium Level 8.7 MG/DL (8.5-10.1) 8.8 MG/DL (8.5-10.1) Phosphorus Level 2.1 MG/DL (2.5-4.9) Magnesium Level 2.1 MG/DL (1.8-2.4) Total Bilirubin 0.3 MG/DL (0.2-1.0) Gamma Glutamyl Transpeptidase 20 U/L (5-85) Aspartate Amino Transf (AST/SGOT) 14 U/L (15-37) Alanine Aminotransferase (ALT/SGPT) 13 U/L (12-78) Alkaline Phosphatase 86 U/L (46-116) Total Creatine Kinase 145 U/L (26-308) C-Reactive Protein, Quantitative 6.1 mg/dL (0.00-0.90) Pro-B-Type Natriuretic Peptide 132 pg/mL (0-125) Total Protein 7.9 G/DL (6.4-8.2) Albumin 2.9 G/DL (3.4-5.0) Globulin 5.0 g/dL Albumin/Globulin Ratio 0.6 (1.0-2.7) Triglycerides Level 66 MG/DL (30-150) Cholesterol Level 168 MG/DL (< 200) LDL Cholesterol 100 mg/dL (<100) HDL Cholesterol 53 MG/DL (40-60) Cholesterol/HDL Ratio 3.2 (3.3-4.4) Vitamin B12 Level 531 PG/ML (193-986) Folate 21.9 NG/ML (8.6-58.9) Thyroid Stimulating Hormone (TSH) 1.464 uiU/mL (0.358-3.740) Height (Feet): 5 Height (Inches): 7.00 Weight (Pounds): 1986 Objective PHYSICAL EXAMINATION: VITAL SIGNS:reviewed General: Patient laying in bed, NAD, normal work of breathing on room air HEENT: Head exam reveals that the head is normocephalic, atraumatic without deformity or unusual swelling. Pupils are PERRLA. CHEST AND LUNGS: Reveals clear, normal, symmetrical breath sounds with no adventitious sounds. CARDIOVASCULAR: Reveals normal S1, S2 without murmurs, rubs, or clicks. ABDOMEN: Soft with no tenderness or organomegaly. RECTAL: Deferred. MUSCULOSKELETAL: There is no tenderness to palpation. Range of motion is normal. NEUROLOGICAL: Alert and oriented x3 , nonfocal Reji Hobbs MD Oct 05, 2020 08:54
[2020-10-05 08:59] LABS: PHOSPHORUS 3.3 MG/DL (2.5-4.9)
[2020-10-05] MEDS: Lactulose 20gm/30ml UDC ORAL SCH ×2 (09:00→21:19)
[2020-10-05] MEDS: D5NS w/KCl 40mEq 1000ml 1,000 ML IV SCH ×2 (09:00→23:15)
--- NOTE | 2020-10-05 09:35 | General Progress Note ---
Subjective Constitutional: Reports: weakness Respiratory: Reports: shortness of breath Allergies: Coded Allergies: No Known Allergies (Verified Allergy, Mild, 01/17/09) All Systems: reviewed and negative except above Subjective sleepy calm Objective Last 24 Hour Vital Signs Date Time Temp Pulse Resp B/P (MAP) Pulse Ox O2 Delivery O2 Flow Rate FiO2 10/05/20 04:00 98.0 78 20 147/90 (109) 98 10/05/20 04:00 73 10/05/20 00:00 97.2 78 20 131/90 (104) 97 10/04/20 21:00 Room Air 10/04/20 20:00 98.4 78 20 138/83 (101) 98 10/04/20 20:00 87 10/04/20 16:00 97.6 98 20 140/78 (98) 97 10/04/20 16:00 81 10/04/20 12:00 97.9 86 20 145/95 (112) 98 10/04/20 12:00 107 Intake and Output 10/04/20 10/05/20 19:00 07:00 Intake Total 1440 ml 1200 ml Balance 1440 ml 1200 ml Intake Oral 1440 ml 1200 ml # Voids 7 4 Laboratory Tests 10/04/20 09:41: White Blood Count 7.5, Red Blood Count 3.85L, Hemoglobin 9.1L, Hematocrit 31.3L, Mean Corpuscular Volume 81, Mean Corpuscular Hemoglobin 23.5L, Mean Corpuscular Hemoglobin Concent 28.9L, Red Cell Distribution Width 15.2H, Platelet Count 418, Mean Platelet Volume 7.0, Neutrophils (%) (Auto) 69.2, Lymphocytes (%) (Auto) 19.0L, Monocytes (%) (Auto) 10.1H, Eosinophils (%) (Auto) 0.6, Basophils (%) (Auto) 1.0, Sodium Level 138, Potassium Level 3.3L, Chloride Level 106, Carbon Dioxide Level 22, Anion Gap 11, Blood Urea Nitrogen 4L, Creatinine 0.8, Estimat Glomerular Filtration Rate > 60, Glucose Level 98, Lactic Acid Level 2.00, Uric Acid 2.4L, Calcium Level 8.7, Phosphorus Level 2.1L, Magnesium Level 2.1, Total Bilirubin 0.3, Gamma Glutamyl Transpeptidase 20, Aspartate Amino Transf (AST/SGOT) 14L, Alanine Aminotransferase (ALT/SGPT) 13, Alkaline Phosphatase 86, Total Creatine Kinase 145, C-Reactive Protein, Quantitative 6.1H, Pro-B-Type Natriuretic Peptide 132H, Total Protein 7.9, Albumin 2.9L, Globulin 5.0, Albumin/Globulin Ratio 0.6L, Triglycerides Level 66, Cholesterol Level 168, LDL Cholesterol 100, HDL Cholesterol 53, Cholesterol/HDL Ratio 3.2L, Vitamin B12 Level 531, Vitamin D 25-Hydroxy [Pending], 25-Hydroxy Vitamin D2 [Pending], 25- Hydroxy Vitamin D3 [Pending], Folate 21.9, Thyroid Stimulating Hormone (TSH) 1.464 10/05/20 06:06: White Blood Count 7.6, Red Blood Count 4.06L, Hemoglobin 9.6L, Hematocrit 32.4L, Mean Corpuscular Volume 80, Mean Corpuscular Hemoglobin 23.5L, Mean Corpuscular Hemoglobin Concent 29.5L, Red Cell Distribution Width 14.6, Platelet Count 421, Mean Platelet Volume 6.6, Neutrophils (%) (Auto) 69.4, Lymphocytes (%) (Auto) 19.4L, Monocytes (%) (Auto) 8.9, Eosinophils (%) (Auto) 1.1, Basophils (%) (Auto) 1.3, Sodium Level 139, Potassium Level 3.7, Chloride Level 107, Carbon Dioxide Level 24, Anion Gap 8, Blood Urea Nitrogen 7, Creatinine 0.7, Estimat Glomerular Filtration Rate > 60, Glucose Level 95, Calcium Level 8.8, Phosphorus Level 3.3, Magnesium Level 2.1 10/05/20 09:00: D-Dimer [Pending] Height (Feet): 5 Height (Inches): 7.00 Weight (Pounds): 1986 General Appearance: alert EENT: normal ENT inspection Neck: normal alignment Cardiovascular: normal peripheral pulses, normal rate, regular rhythm Respiratory/Chest: chest wall non-tender, lungs clear, normal breath sounds Abdomen: normal bowel sounds, non tender, soft Extremities: normal inspection Edema: no edema noted Arm (L), no edema noted Arm (R), no edema noted Leg (L), no edema noted Leg (R), no edema noted Pedal (L), no edema noted Pedal (R), no edema noted Generalized Neurologic: motor weakness Skin: normal pigmentation, warm/dry Assessment/Plan Problem List: (1) UTI (urinary tract infection) ICD Codes: N39.0 - Urinary tract infection, site not specified SNOMED: 56538238 (2) Anemia ICD Codes: D64.9 - Anemia, unspecified SNOMED: 039191778 (3) HTN (hypertension) ICD Codes: I10 - Essential (primary) hypertension SNOMED: 19413170 (4) Pulmonary embolism ICD Codes: I26.99 - Other pulmonary embolism without acute cor pulmonale SNOMED: 86680373 (5) Pneumonia ICD Codes: J18.9 - Pneumonia, unspecified organism SNOMED: 372197901 Status: unchanged Assessment/Plan: o2 pulm tx abx antocoag cbc bmp am Lee Johnson DO Oct 05, 2020 09:34
[2020-10-05] MEDS: Docusate 100mg cap ORAL SCH ×3 (09:41→23:04)
[2020-10-05] MEDS: Enoxaparin 100mg Inj SUBQ SCH (09:44)
[2020-10-05] MEDS: Carbamide Peroxide 6.5% Ot Sol 15ML BOTH EARS SCH ×2 (09:45→21:17)
--- NOTE | 2020-10-05 09:48 | Pulmonology Progress Note ---
Subjective ROS Limited/Unobtainable: No Interval Events: None major reported per nursing Constitutional: Reports: fever, other - resolved HEENT: Repors: no symptoms Respiratory: Reports: pleuritic pain Cardiovascular: Reports: no symptoms Gastrointestinal/Abdominal: Reports: no symptoms Allergies: Coded Allergies: No Known Allergies (Verified Allergy, Mild, 01/17/09) All Systems: reviewed and negative except above Objective Last 24 Hour Vital Signs Date Time Temp Pulse Resp B/P (MAP) Pulse Ox O2 Delivery O2 Flow Rate FiO2 10/05/20 04:00 98.0 78 20 147/90 (109) 98 10/05/20 04:00 73 10/05/20 00:00 97.2 78 20 131/90 (104) 97 10/04/20 21:00 Room Air 10/04/20 20:00 98.4 78 20 138/83 (101) 98 10/04/20 20:00 87 10/04/20 16:00 97.6 98 20 140/78 (98) 97 10/04/20 16:00 81 10/04/20 12:00 97.9 86 20 145/95 (112) 98 10/04/20 12:00 107 Intake and Output 10/04/20 10/05/20 19:00 07:00 Intake Total 1440 ml 1200 ml Balance 1440 ml 1200 ml Intake Oral 1440 ml 1200 ml # Voids 7 4 General Appearance: no acute distress HEENT: atraumatic, anicteric Respiratory: lungs clear, normal breath sounds, no respiratory distress, no accessory muscle use Cardiovascular: normal rate, regular rhythm Abdomen: soft, non tender Microbiology Date/Time Source Procedure Growth Status 10/02/20 13:35 Nasopharynx Coronavirus COVID-19 PCR ([facility]) - Final Complete 10/02/20 10:10 Blood Blood Culture - Preliminary NO GROWTH AFTER 48 HOURS Resulted 10/02/20 10:10 Blood Blood Culture - Preliminary NO GROWTH AFTER 48 HOURS Resulted Laboratory Tests 10/05/20 06:06: White Blood Count 7.6, Red Blood Count 4.06L, Hemoglobin 9.6L, Hematocrit 32.4L, Mean Corpuscular Volume 80, Mean Corpuscular Hemoglobin 23.5L, Mean Corpuscular Hemoglobin Concent 29.5L, Red Cell Distribution Width 14.6, Platelet Count 421, Mean Platelet Volume 6.6, Neutrophils (%) (Auto) 69.4, Lymphocytes (%) (Auto) 1 9.4L, Monocytes (%) (Auto) 8.9, Eosinophils (%) (Auto) 1.1, Basophils (%) (Auto) 1.3, Sodium Level 139, Potassium Level 3.7, Chloride Level 107, Carbon Dioxide Level 24, Anion Gap 8, Blood Urea Nitrogen 7, Creatinine 0.7, Estimat Glomerular Filtration Rate > 60, Glucose Level 95, Calcium Level 8.8, Phosphorus Level 3.3, Magnesium Level 2.1 10/05/20 09:00: D-Dimer [Pending] Current Medications Medications (Trade) Dose Ordered Sig/Billy Route PRN Reason Start Time Stop Time Status Last Admin Dose Admin Acetaminophen (Tylenol) 650 mg Q4H PRN ORAL Mild Pain (Pain Scale 1-3) 10/02/20 22:45 11/01/20 22:44 10/05/20 04:28 Acetaminophen (Tylenol) 650 mg Q4H PRN ORAL Temp >100.5 10/02/20 22:45 11/01/20 22:44 Acetaminophen/ Hydrocodone Bitart ([place] 5/325) 1 tab Q6H PRN ORAL For Pain 10/02/20 23:00 10/09/20 22:59 10/05/20 09:41 Carbamide Peroxide (Debrox) 5 drop TWICE A DAY BOTH EARS 10/03/20 09:00 11/02/20 08:59 10/05/20 09:45 Dextrose/ Electrolytes 1,000 ml @ 75 mls/hr [id number] IV 10/03/20 17:00 11/02/20 16:59 10/04/20 10:46 Docusate Sodium (Colace) 100 mg THREE TIMES A DAY ORAL 10/03/20 18:00 11/02/20 17:59 10/05/20 09:41 Enoxaparin Sodium (Lovenox) 90 mg EVERY 12 HOURS SUBQ 10/02/20 13:00 12/31/20 12:59 10/05/20 09:44 Escitalopram Oxalate (Lexapro) 10 mg DAILY ORAL 10/03/20 09:00 11/02/20 08:59 10/05/20 09:41 Famotidine (Pepcid) 20 mg BID ORAL 10/03/20 18:00 01/01/21 17:59 10/05/20 09:41 Guaifenesin (Robitussin) 200 mg Q4H PRN ORAL For Cough 10/02/20 23:15 12/31/20 22:59 Iron Sucrose 100 mg/Sodium Chloride 60 ml @ 240 mls/hr BEDTIME IVPB 10/05/20 21:00 10/09/20 21:14 Lactulose (Cephulac) 20 gm BID ORAL 10/03/20 09:00 11/02/20 08:59 10/04/20 18:37 Simethicone (Mylicon) 80 mg Q8H PRN ORAL GAS PAIN 10/02/20 23:00 12/31/20 22:59 Sodium Phosphate (Fleet's Sodium Phosl Enema) 133 ml DAILY PRN RECTAL Constipation 10/02/20 23:15 11/02/20 08:59 Assessment/Plan Assessment/Plan 1. Pulmonary embolus - continue full dose Lovenox - Provide supplemental oxygen as needed - we will start her on Xarelto 15 mg PO BID; will dc Lovenox per pharmacy recs - hold off hypercoag w/u, per Heme onc - f/u D-dimer ordered (10/05) per Dr. Johnson 2. Infiltrates vs atelectasis - COVID-19 Ag negative (10/02) - COVID-19 PCR negative (10/02) - 2nd COVID-19 PCR pending (10/03), per ID - now on Abx per ID - CXR (10/03) slightly improved infiltrates 3. Hypertension - BP control The care for this patient was discussed with my supervising physician. Time spent for this case was approximately 31 minutes. Christopher Ho Oct 05, 2020 09:48
--- NOTE | 2020-10-05 10:32 | Nephrology Progress Note ---
Assessment/Plan Problem List: (1) Iron deficiency anemia (2) Electrolyte imbalance (3) Pulmonary embolism (4) Pneumonia Assessment Hypokalemia pneumonia Pulmonary embolism Fever Hypertension Iron deficiency anemia Plan October 05: Labs reviewed. Renal parameters stable. Hemoglobin higher. Continue per consultants. October 04: IV iron started. Low potassium and low phosphorus addressed. Continue per consultants. Medication list reviewed. Previously: IV fluid with potassium supplement Keep the blood pressure in check Continue per consultants Subjective ROS Limited/Unobtainable: No Constitutional: Reports: malaise Objective Objective Last 24 Hour Vital Signs Date Time Temp Pulse Resp B/P (MAP) Pulse Ox O2 Delivery O2 Flow Rate FiO2 10/05/20 04:00 98.0 78 20 147/90 (109) 98 10/05/20 04:00 73 10/05/20 00:00 97.2 78 20 131/90 (104) 97 10/04/20 21:00 Room Air 10/04/20 20:00 98.4 78 20 138/83 (101) 98 10/04/20 20:00 87 10/04/20 16:00 97.6 98 20 140/78 (98) 97 10/04/20 16:00 81 10/04/20 12:00 97.9 86 20 145/95 (112) 98 10/04/20 12:00 107 Intake and Output 10/04/20 10/05/20 19:00 07:00 Intake Total 1440 ml 1200 ml Balance 1440 ml 1200 ml Intake Oral 1440 ml 1200 ml # Voids 7 4 Current Medications Medications (Trade) Dose Ordered Sig/Billy Route PRN Reason Start Time Stop Time Status Last Admin Dose Admin Acetaminophen (Tylenol) 650 mg Q4H PRN ORAL Mild Pain (Pain Scale 1-3) 10/02/20 22:45 11/01/20 22:44 10/05/20 04:28 Acetaminophen (Tylenol) 650 mg Q4H PRN ORAL Temp >100.5 10/02/20 22:45 11/01/20 22:44 Acetaminophen/ Hydrocodone Bitart ([place] 5/325) 1 tab Q6H PRN ORAL For Pain 10/02/20 23:00 10/09/20 22:59 10/05/20 09:41 Carbamide Peroxide (Debrox) 5 drop EVERY 12 HOURS BOTH EARS 10/05/20 21:00 11/02/20 08:59 UNV Dextrose/ Electrolytes 1,000 ml @ 75 mls/hr [id number] IV 10/03/20 17:00 11/02/20 16:59 10/04/20 10:46 Docusate Sodium (Colace) 100 mg EVERY 8 HOURS ORAL 10/05/20 14:00 11/02/20 17:59 UNV Escitalopram Oxalate (Lexapro) 10 mg DAILY ORAL 10/03/20 09:00 11/02/20 08:59 10/05/20 09:41 Famotidine (Pepcid) 20 mg BID ORAL 10/03/20 18:00 01/01/21 17:59 10/05/20 09:41 Guaifenesin (Robitussin) 200 mg Q4H PRN ORAL For Cough 10/02/20 23:15 12/31/20 22:59 Iron Sucrose 100 mg/Sodium Chloride 60 ml @ 240 mls/hr BEDTIME IVPB 10/05/20 21:00 10/09/20 21:14 Lactulose (Cephulac) 20 gm EVERY 12 HOURS ORAL 10/05/20 21:00 11/02/20 08:59 UNV Rivaroxaban (Xarelto) 15 mg DAILY ORAL 10/27/20 09:00 01/25/21 08:59 Rivaroxaban (Xarelto) 15 mg Q12HR ORAL 10/05/20 21:00 10/26/20 23:59 Simethicone (Mylicon) 80 mg Q8H PRN ORAL GAS PAIN 10/02/20 23:00 12/31/20 22:59 Sodium Phosphate (Fleet's Sodium Phosl Enema) 133 ml DAILY PRN RECTAL Constipation 10/02/20 23:15 11/02/20 08:59 Laboratory Tests 10/05/20 06:06: White Blood Count 7.6, Red Blood Count 4.06L, Hemoglobin 9.6L, Hematocrit 32.4L, Mean Corpuscular Volume 80, Mean Corpuscular Hemoglobin 23.5L, Mean Corpuscular Hemoglobin Concent 29.5L, Red Cell Distribution Width 14.6, Platelet Count 421, Mean Platelet Volume 6.6, Neutrophils (%) (Auto) 69.4, Lymphocytes (%) (Auto) 19.4L, Monocytes (%) (Auto) 8.9, Eosinophils (%) (Auto) 1.1, Basophils (%) (Auto) 1.3, Sodium Level 139, Potassium Level 3.7, Chloride Level 107, Carbon Dioxide Level 24, Anion Gap 8, Blood Urea Nitrogen 7, Creatinine 0.7, Estimat Glomerular Filtration Rate > 60, Glucose Level 95, Calcium Level 8.8, Phosphorus Level 3.3, Magnesium Level 2.1 10/05/20 09:00: D-Dimer [Pending] Height (Feet): 5 Height (Inches): 7.00 Weight (Pounds): 1985 General Appearance: no apparent distress Iraj Tim MD Oct 05, 2020 10:32
[2020-10-05] MEDS ORDERED: IBUPROFEN600 M1 ORAL (12:57)
[2020-10-05] MEDS ORDERED: BANOPHEN50 MG PO (13:00)
[2020-10-05] MEDS ORDERED: ESCITALOPRAM OX20 MG ORAL (13:00)
[2020-10-05] MEDS ORDERED: IBUPROFEN800 M1 PO (13:07)
--- NOTE | 2020-10-05 14:09 | Cardiology Report ---
APPROVED REPORT EKG Measurement Heart [id number] <Conclusion> Normal sinus rhythm Possible Left atrial enlargement Borderline ECG
--- NOTE | 2020-10-05 19:30 | NUR ---
NURSE NOTES: notified doctor Geoff pt ddimer results. NO new orders were given.
--- NOTE | 2020-10-05 20:05 | NUR ---
NURSE HAND-OFF REPORT: Important Events on Shift:[]pt covid neg. ok to take pt from isolation, notified doctor Geoff about pt latest labs (ddimer) no new orders were given. pt has been having headaches, notified Leroy too. Patient Status: []full code Diet: []regular Pending Orders: [] Pending Results/Labs:[] Pending MD notification:[] Latest Vital Signs: Temperature 98.2 , Pulse 93 , B/P 144 /84 , Respiratory Rate 20 , O2 SAT 98 , Room Air, O2 Flow Rate . Vital Sign Comment: [] EKG Rhythm: Sinus Rhythm Rhythm change?: N MD Notified?: - MD Response: Latest Pate Fall Score: 20 Fall Risk: Low Risk Safety Measures: Call light Within Reach, Bed Alarm Zone 1, Side Rails Side Rails x2, Bed position Low and Locked. Fall Precautions: y Yellow Socks y Yellow Gown y Patient Fall Education y Report given to []. Ирина/AIDA
--- NOTE | 2020-10-05 20:15 | NUR ---
NURSE NOTES: pt. in bed resting no pain pt. on surveillance system monitor no signs of cardiac or respiratory distress at this time. Bed is locked and in lowest position. Call light within reach. Will continue to monitor pt.
[2020-10-05] MEDS: Xarelto 15mg tab ORAL SCH (21:20)
[2020-10-05] MEDS: Iron Sucrose 100 MG in NS 55 ML IVPB SCH (21:48)
[2020-10-06] VITALS: BP 131/90
--- NOTE | 2020-10-06 02:58 | NUR ---
NURSE NOTES: pt. Iv line from left handside came off, i insert a new one on the right side
[2020-10-06 04:00] VITALS: BP 127/82
[2020-10-06] MEDS: Docusate 100mg cap ORAL SCH ×3 (06:17→22:27)
--- NOTE | 2020-10-06 07:15 | NUR ---
NURSE NOTES: made rounds, pt in bed alert and awake; pt watching tv at this time. denies any chest pain. respiration is even and unlabored on room air. no acute distress noted at this time. call light within reach.
[2020-10-06 07:48] LABS: BASOPHILS % (AUTO) 0.6 % (0.0-2.0); HEMATOCRIT 33.9 % (37.0-47.0); LYMPHOCYTES % (AUTO) 24.5 % (20.0-45.0); MEAN CORPUSCULAR VOLUME 80 FL (80-99); MONOCYTES % (AUTO) 9.6 % (1.0-10.0); NEUTROPHILS % (AUTO) 64.3 % (45.0-75.0); PLATELET COUNT 445 K/UL (150-450); RED BLOOD COUNT 4.22 M/UL (4.20-5.40); RED CELL DISTRIBUTION WIDTH 15.2 % (11.6-14.8); WHITE BLOOD COUNT 6.4 K/UL (4.8-10.8)
[2020-10-06 08:00] VITALS: BP 125/80
[2020-10-06 08:05] LABS: ALANINE AMINOTRANSFERASE 18 U/L (12-78); ALBUMIN 2.9 G/DL (3.4-5.0); ALBUMIN/GLOBULIN RATIO 0.6 (1.0-2.7); ALKALINE PHOSPHATASE 85 U/L (46-116); ANION GAP 8 mmol/L (5-15); ASPARTATE AMINO TRANSFERASE 13 U/L (15-37); BILIRUBIN,TOTAL 0.2 MG/DL (0.2-1.0); BLOOD UREA NITROGEN 6 mg/dL (7-18); CALCIUM 9.3 MG/DL (8.5-10.1); CARBON DIOXIDE 25 MMOL/L (21-32); CHLORIDE 105 MMOL/L (98-107); CREATININE 0.9 MG/DL (0.55-1.30); SODIUM 138 MMOL/L (136-145)
[2020-10-06] MEDS: Lactulose 20gm/30ml UDC ORAL SCH ×2 (08:39→20:51)
[2020-10-06] MEDS: HYDROcodone/Acetamin 5/325 tab ORAL PRN ×2 (08:39→18:08)
[2020-10-06] MEDS: Xarelto 15mg tab ORAL SCH ×2 (08:39→20:51)
--- NOTE | 2020-10-06 09:10 | General Progress Note ---
Subjective Constitutional: Reports: weakness Allergies: Coded Allergies: No Known Allergies (Verified Allergy, Mild, 01/17/09) All Systems: reviewed and negative except above Subjective sleepy calm Objective Last 24 Hour Vital Signs Date Time Temp Pulse Resp B/P (MAP) Pulse Ox O2 Delivery O2 Flow Rate FiO2 10/06/20 04:00 98.0 77 18 127/82 (97) 97 10/06/20 04:00 87 10/06/20 00:00 98.2 83 18 131/90 (104) 96 10/05/20 21:00 Room Air 10/05/20 20:00 99.5 86 18 136/97 (110) 98 10/05/20 20:00 95 10/05/20 16:00 98.2 93 20 144/84 (104) 98 10/05/20 16:00 98 10/05/20 12:00 98.1 85 20 127/86 (100) 98 10/05/20 12:00 94 10/05/20 10:11 98.0 Intake and Output 10/05/20 10/06/20 19:00 07:00 Intake Total 900 ml Balance 900 ml Intake Oral 900 ml # Voids 2 Laboratory Tests 10/06/20 07:10: White Blood Count 6.4, Red Blood Count 4.22, Hemoglobin 10.0L, Hematocrit 33.9L, Mean Corpuscular Volume 80, Mean Corpuscular Hemoglobin 23.8L, Mean Corpuscular Hemoglobin Concent 29.6L, Red Cell Distribution Width 15.2H, Platelet Count 445, Mean Platelet Volume 6.5, Neutrophils (%) (Auto) 64.3, Lymphocytes (%) (Auto) 24.5, Monocytes (%) (Auto) 9.6, Eosinophils (%) (Auto) 1.0, Basophils (%) (Auto) 0.6, Sodium Level 138, Potassium Level 4.0, Chloride Level 105, Carbon Dioxide Level 25, Anion Gap 8, Blood Urea Nitrogen 6L, Creatinine 0.9, Estimat Glomerular Filtration Rate > 60, Glucose Level 91, Calcium Level 9.3, Total Bilirubin 0.2, Aspartate Amino Transf (AST/SGOT) 13L, Alanine Aminotransferase (ALT/SGPT) 18, Alkaline Phosphatase 85, Total Protein 7.7, Albumin 2.9L, Globulin 4.8, Albumin/Globulin Ratio 0.6L Height (Feet): 5 Height (Inches): 7.00 Weight (Pounds): 1986 General Appearance: lethargic EENT: normal ENT inspection Neck: normal alignment Cardiovascular: normal peripheral pulses, normal rate, regular rhythm Respiratory/Chest: chest wall non-tender, lungs clear, normal breath sounds Abdomen: normal bowel sounds, non tender, soft Assessment/Plan Problem List: (1) UTI (urinary tract infection) ICD Codes: N39.0 - Urinary tract infection, site not specified SNOMED: 73182255 (2) Anemia ICD Codes: D64.9 - Anemia, unspecified SNOMED: 129670377 (3) HTN (hypertension) ICD Codes: I10 - Essential (primary) hypertension SNOMED: 39907276 (4) Pulmonary embolism ICD Codes: I26.99 - Other pulmonary embolism without acute cor pulmonale SNOMED: 60178332 (5) Pneumonia ICD Codes: J18.9 - Pneumonia, unspecified organism SNOMED: 497383975 Status: unchanged Assessment/Plan: o2 pulm tx abx antocoag cbc bmp am Lee Johnson DO Oct 06, 2020 09:10
--- NOTE | 2020-10-06 10:18 | NUR ---
CASE MANAGEMENT:REVIEW 10/06/20 SI: PULMONARY EMBOLUS 98.0 77 18 127/82 97% ON RA H/H-10.0/33.9 IS: IVF@75/HR IV VENOFER QHS XARELTO PO Q12 LACTULOSE PO Q12 DEBROX 5 GTTS Q12 TO BOTH EARS PEPCID PO BID LEXAPRO PO QD : TELEMETRY STATUS DCP: FROM HOME
--- NOTE | 2020-10-06 11:07 | Pulmonology Progress Note ---
Subjective ROS Limited/Unobtainable: No Interval Events: None major reported per nursing Constitutional: Reports: fever, other - resolved HEENT: Repors: no symptoms Respiratory: Reports: pleuritic pain - improving Cardiovascular: Reports: no symptoms Gastrointestinal/Abdominal: Reports: no symptoms Allergies: Coded Allergies: No Known Allergies (Verified Allergy, Mild, 01/17/09) All Systems: reviewed and negative except above Objective Last 24 Hour Vital Signs Date Time Temp Pulse Resp B/P (MAP) Pulse Ox O2 Delivery O2 Flow Rate FiO2 10/06/20 09:00 Room Air 10/06/20 08:00 98.2 75 18 125/80 (95) 98 10/06/20 08:00 103 10/06/20 04:00 98.0 77 18 127/82 (97) 97 10/06/20 04:00 87 10/06/20 00:00 98.2 83 18 131/90 (104) 96 10/05/20 21:00 Room Air 10/05/20 20:00 99.5 86 18 136/97 (110) 98 10/05/20 20:00 95 10/05/20 16:00 98.2 93 20 144/84 (104) 98 10/05/20 16:00 98 10/05/20 12:00 98.1 85 20 127/86 (100) 98 10/05/20 12:00 94 Intake and Output 10/05/20 10/06/20 19:00 07:00 Intake Total 900 ml Balance 900 ml Intake Oral 900 ml # Voids 2 General Appearance: no acute distress HEENT: atraumatic, anicteric Respiratory: lungs clear, normal breath sounds, no respiratory distress, no accessory muscle use Cardiovascular: normal rate, regular rhythm Abdomen: soft, non tender Microbiology Date/Time Source Procedure Growth Status 10/04/20 10:50 Nasopharynx Coronavirus COVID-19 PCR ([facility]) - Final Complete Laboratory Tests 10/06/20 07:10: White Blood Count 6.4, Red Blood Count 4.22, Hemoglobin 10.0L, Hematocrit 33.9L, Mean Corpuscular Volume 80, Mean Corpuscular Hemoglobin 23.8L, Mean Corpuscular Hemoglobin Concent 29.6L, Red Cell Distribution Width 15.2H, Platelet Count 445, Mean Platelet Volume 6.5, Neutrophils (%) (Auto) 64.3, Lymphocytes (%) (Auto) 24.5, Monocytes (%) (Auto) 9.6, Eosinophils (%) (Auto) 1.0, Basophils (%) (Auto) 0.6, Sodium Level 138, Potassium Level 4.0, Chloride Level 105, Carbon Dioxide Level 25, Anion Gap 8, Blood Urea Nitrogen 6L, Creatinine 0.9, Estimat Glomerular Filtration Rate > 60, Glucose Level 91, Calcium Level 9.3, Total Bilirubin 0.2, Aspartate Amino Transf (AST/SGOT) 13L, Alanine Aminotransferase (ALT/SGPT) 18, Alkaline Phosphatase 85, Total Protein 7.7, Albumin 2.9L, Globulin 4.8, Albumin/Globulin Ratio 0.6L Current Medications Medications (Trade) Dose Ordered Sig/Billy Route PRN Reason Start Time Stop Time Status Last Admin Dose Admin Acetaminophen (Tylenol) 650 mg Q4H PRN ORAL Mild Pain (Pain Scale 1-3) 10/02/20 22:45 11/01/20 22:44 10/05/20 18:08 Acetaminophen (Tylenol) 650 mg Q4H PRN ORAL Temp >100.5 10/02/20 22:45 11/01/20 22:44 Acetaminophen/ Hydrocodone Bitart ([place] 5/325) 1 tab Q6H PRN ORAL For Pain 10/02/20 23:00 10/09/20 22:59 10/06/20 08:39 Carbamide Peroxide (Debrox) 5 drop EVERY 12 HOURS BOTH EARS 10/05/20 21:00 11/02/20 08:59 10/05/20 21:17 Dextrose/ Electrolytes 1,000 ml @ 75 mls/hr [id number] IV 10/03/20 17:00 11/02/20 16:59 10/05/20 23:15 Docusate Sodium (Colace) 100 mg EVERY 8 HOURS ORAL 10/05/20 14:00 11/02/20 17:59 10/06/20 06:17 Escitalopram Oxalate (Lexapro) 10 mg DAILY ORAL 10/03/20 09:00 11/02/20 08:59 10/06/20 08:39 Famotidine (Pepcid) 20 mg BID ORAL 10/03/20 18:00 01/01/21 17:59 10/06/20 08:39 Guaifenesin (Robitussin) 200 mg Q4H PRN ORAL For Cough 10/02/20 23:15 12/31/20 22:59 Iron Sucrose 100 mg/Sodium Chloride 60 ml @ 240 mls/hr BEDTIME IVPB 10/05/20 21:00 10/09/20 21:14 10/05/20 21:48 Lactulose (Cephulac) 20 gm EVERY 12 HOURS ORAL 10/05/20 21:00 11/02/20 08:59 10/06/20 08:39 Rivaroxaban (Xarelto) 15 mg DAILY ORAL 10/27/20 09:00 01/25/21 08:59 Rivaroxaban (Xarelto) 15 mg Q12HR ORAL 10/05/20 21:00 10/26/20 23:59 10/06/20 08:39 Simethicone (Mylicon) 80 mg Q8H PRN ORAL GAS PAIN 10/02/20 23:00 12/31/20 22:59 Sodium Phosphate (Fleet's Sodium Phosl Enema) 133 ml DAILY PRN RECTAL Constipation 10/02/20 23:15 11/02/20 08:59 Assessment/Plan Assessment/Plan 1. Pulmonary embolus - Provide supplemental oxygen as needed - we will start her on Xarelto 15 mg PO BID; will dc Lovenox per pharmacy recs - hold off hypercoag w/u, per Heme onc - f/u D-dimer ordered (10/05) per Dr. Johnson 2. Infiltrates vs atelectasis - COVID-19 Ag negative (10/02) - COVID-19 PCR negative (10/02) - 2nd COVID-19 PCR negative (10/03) -> off isolation - s/p Abx per ID - CXR (10/03) slightly improved infiltrates 3. Hypertension - BP control Medically stable for discharge from pulmonary standpoint The care for this patient was discussed with my supervising physician. Time spent for this case was approximately 31 minutes. Christopher Ho Oct 06, 2020 11:07
[2020-10-06 12:00] VITALS: BP 140/88
[2020-10-06] MEDS: Carbamide Peroxide 6.5% Ot Sol 15ML BOTH EARS SCH ×2 (13:39→20:49)
[2020-10-06] MEDS: D5NS w/KCl 40mEq 1000ml 1,000 ML IV SCH (13:40)
--- NOTE | 2020-10-06 13:58 | Nephrology Progress Note ---
Assessment/Plan Problem List: (1) Iron deficiency anemia (2) Electrolyte imbalance (3) Pulmonary embolism (4) Pneumonia Assessment Hypokalemia pneumonia Pulmonary embolism Fever Hypertension Iron deficiency anemia Plan October 06: Renal parameters stable. Hemoglobin higher. Continue per current management. October 05: Labs reviewed. Renal parameters stable. Hemoglobin higher. Continue per consultants. October 04: IV iron started. Low potassium and low phosphorus addressed. Continue per consultants. Medication list reviewed. Previously: IV fluid with potassium supplement Keep the blood pressure in check Continue per consultants Subjective ROS Limited/Unobtainable: No Constitutional: Reports: malaise Objective Objective Last 24 Hour Vital Signs Date Time Temp Pulse Resp B/P (MAP) Pulse Ox O2 Delivery O2 Flow Rate FiO2 10/06/20 12:00 95 10/06/20 12:00 98.4 70 18 140/88 (105) 98 10/06/20 09:00 Room Air 10/06/20 08:00 98.2 75 18 125/80 (95) 98 10/06/20 08:00 103 10/06/20 04:00 98.0 77 18 127/82 (97) 97 10/06/20 04:00 87 10/06/20 00:00 98.2 83 18 131/90 (104) 96 10/05/20 21:00 Room Air 10/05/20 20:00 99.5 86 18 136/97 (110) 98 10/05/20 20:00 95 10/05/20 16:00 98.2 93 20 144/84 (104) 98 10/05/20 16:00 98 Intake and Output 10/05/20 10/06/20 19:00 07:00 Intake Total 900 ml Balance 900 ml Intake Oral 900 ml # Voids 2 Current Medications Medications (Trade) Dose Ordered Sig/Billy Route PRN Reason Start Time Stop Time Status Last Admin Dose Admin Acetaminophen (Tylenol) 650 mg Q4H PRN ORAL Mild Pain (Pain Scale 1-3) 10/02/20 22:45 11/01/20 22:44 10/05/20 18:08 Acetaminophen (Tylenol) 650 mg Q4H PRN ORAL Temp >100.5 10/02/20 22:45 11/01/20 22:44 Acetaminophen/ Hydrocodone Bitart ([place] 5/325) 1 tab Q6H PRN ORAL For Pain 10/02/20 23:00 10/09/20 22:59 10/06/20 08:39 Carbamide Peroxide (Debrox) 5 drop EVERY 12 HOURS BOTH EARS 10/05/20 21:00 11/02/20 08:59 10/06/20 13:39 Dextrose/ Electrolytes 1,000 ml @ 75 mls/hr [id number] IV 10/03/20 17:00 11/02/20 16:59 10/06/20 13:40 Docusate Sodium (Colace) 100 mg EVERY 8 HOURS ORAL 10/05/20 14:00 11/02/20 17:59 10/06/20 13:40 Escitalopram Oxalate (Lexapro) 10 mg DAILY ORAL 10/03/20 09:00 11/02/20 08:59 10/06/20 08:39 Famotidine (Pepcid) 20 mg BID ORAL 10/03/20 18:00 01/01/21 17:59 10/06/20 08:39 Guaifenesin (Robitussin) 200 mg Q4H PRN ORAL For Cough 10/02/20 23:15 12/31/20 22:59 Iron Sucrose 100 mg/Sodium Chloride 60 ml @ 240 mls/hr BEDTIME IVPB 10/05/20 21:00 10/09/20 21:14 10/05/20 21:48 Lactulose (Cephulac) 20 gm EVERY 12 HOURS ORAL 10/05/20 21:00 11/02/20 08:59 10/06/20 08:39 Rivaroxaban (Xarelto) 15 mg DAILY ORAL 10/27/20 09:00 01/25/21 08:59 Rivaroxaban (Xarelto) 15 mg Q12HR ORAL 10/05/20 21:00 10/26/20 23:59 10/06/20 08:39 Simethicone (Mylicon) 80 mg Q8H PRN ORAL GAS PAIN 10/02/20 23:00 12/31/20 22:59 Sodium Phosphate (Fleet's Sodium Phosl Enema) 133 ml DAILY PRN RECTAL Constipation 10/02/20 23:15 11/02/20 08:59 Laboratory Tests 10/06/20 07:10: White Blood Count 6.4, Red Blood Count 4.22, Hemoglobin 10.0L, Hematocrit 33.9L, Mean Corpuscular Volume 80, Mean Corpuscular Hemoglobin 23.8L, Mean Corpuscular Hemoglobin Concent 29.6L, Red Cell Distribution Width 15.2H, Platelet Count 445, Mean Platelet Volume 6.5, Neutrophils (%) (Auto) 64.3, Lymphocytes (%) (Auto) 24.5, Monocytes (%) (Auto) 9.6, Eosinophils (%) (Auto) 1.0, Basophils (%) (Auto) 0.6, Sodium Level 138, Potassium Level 4.0, Chloride Level 105, Carbon Dioxide Level 25, Anion Gap 8, Blood Urea Nitrogen 6L, Creatinine 0.9, Estimat Glomerular Filtration Rate > 60, Glucose Level 91, Calcium Level 9.3, Total Bilirubin 0.2, Aspartate Amino Transf (AST/SGOT) 13L, Alanine Aminotransferase (ALT/SGPT) 18, Alkaline Phosphatase 85, Total Protein 7.7, Albumin 2.9L, Globulin 4.8, Albumin/Globulin Ratio 0.6L Height (Feet): 5 Height (Inches): 7.00 Weight (Pounds): 1985 General Appearance: no apparent distress Cardiovascular: normal rate Respiratory/Chest: decreased breath sounds Abdomen: distended Iraj Tim MD Oct 06, 2020 13:58
[2020-10-06 16:00] VITALS: BP 135/72
--- NOTE | 2020-10-06 18:45 | NUR ---
NURSE HAND-OFF REPORT: Important Events on Shift:n/a Patient Status: stable Diet: cardiac Pending Orders: n/a Pending Results/Labs:n/a Pending MD notification:n/a Latest Vital Signs: Temperature 98.2 , Pulse 78 , B/P 135 /72 , Respiratory Rate 18 , O2 SAT 97 , Room Air, O2 Flow Rate . Vital Sign Comment: stable EKG Rhythm: Sinus Rhythm Rhythm change?: N MD Notified?: - MD Response: Latest Pate Fall Score: 20 Fall Risk: Low Risk Safety Measures: Call light Within Reach, Bed Alarm Zone 1, Side Rails Side Rails x2, Bed position Low and Locked. Fall Precautions: Yellow Socks Yellow Gown Patient Fall Education Report given to .
[2020-10-06 20:00] VITALS: BP 145/80
--- NOTE | 2020-10-06 20:10 | NUR ---
NURSE NOTES: pt in bed alert and awake; pt watching tv at this time. respiration is even and unlabored on room air. no acute distress noted at this time. call light within reach.
[2020-10-06] MEDS: Iron Sucrose 100 MG in NS 55 ML IVPB SCH (20:51)
--- NOTE | 2020-10-06 22:00 | NUR ---
lNURSE NOTES: patient got all her meds, no complain of pain,in bed resting
[2020-10-07] VITALS: BP 141/73
[2020-10-07] MEDS: D5NS w/KCl 40mEq 1000ml 1,000 ML IV SCH (02:17)
[2020-10-07 04:00] VITALS: BP 132/90
[2020-10-07] MEDS: HYDROcodone/Acetamin 5/325 tab ORAL PRN (05:00)
[2020-10-07] MEDS: Docusate 100mg cap ORAL SCH (05:41)
[2020-10-07 07:32] LABS: BASOPHILS % (AUTO) 0.9 % (0.0-2.0); EOSINOPHILS % (AUTO) 1.3 % (0.0-3.0); HEMATOCRIT 37.1 % (37.0-47.0); HEMOGLOBIN 11.1 G/DL (12.0-16.0); LYMPHOCYTES % (AUTO) 23.2 % (20.0-45.0); MEAN CORPUSCULAR VOLUME 81 FL (80-99); MONOCYTES % (AUTO) 8.5 % (1.0-10.0); NEUTROPHILS % (AUTO) 66.2 % (45.0-75.0); PLATELET COUNT 438 K/UL (150-450); RED CELL DISTRIBUTION WIDTH 15.3 % (11.6-14.8)
[2020-10-07 07:45] LABS: ANION GAP 10 mmol/L (5-15); BLOOD UREA NITROGEN 5 mg/dL (7-18); CALCIUM 9.6 MG/DL (8.5-10.1); CARBON DIOXIDE 25 MMOL/L (21-32); CHLORIDE 103 MMOL/L (98-107); CREATININE 0.9 MG/DL (0.55-1.30); POTASSIUM 3.8 MMOL/L (3.5-5.1); SODIUM 138 MMOL/L (136-145)
--- NOTE | 2020-10-07 07:54 | NUR ---
NURSE NOTES: Received AM report. pt is in the bed eating breakfast, tolerates meals well. denies any chest pain at this time. respiration is even and unlabored on room air. no acute distress noted at this time. call light within reach.
[2020-10-07 08:00] VITALS: BP 132/94
--- NOTE | 2020-10-07 09:09 | Pulmonology Progress Note ---
Subjective ROS Limited/Unobtainable: No Interval Events: None major reported per nursing Constitutional: Reports: fever, other - resolved HEENT: Repors: no symptoms Respiratory: Reports: pleuritic pain - improving Cardiovascular: Reports: no symptoms Gastrointestinal/Abdominal: Reports: no symptoms Allergies: Coded Allergies: No Known Allergies (Verified Allergy, Mild, 01/17/09) All Systems: reviewed and negative except above Objective Last 24 Hour Vital Signs Date Time Temp Pulse Resp B/P (MAP) Pulse Ox O2 Delivery O2 Flow Rate FiO2 10/07/20 04:00 84 10/07/20 04:00 98.1 84 18 132/90 (104) 97 10/07/20 00:00 98.4 70 18 141/73 (95) 97 10/06/20 21:00 Room Air 10/06/20 20:00 95 10/06/20 20:00 98.6 74 18 145/80 (101) 97 10/06/20 16:00 93 10/06/20 16:00 98.2 78 18 135/72 (93) 97 10/06/20 12:00 95 10/06/20 12:00 98.4 70 18 140/88 (105) 98 Intake and Output 10/06/20 10/07/20 19:00 07:00 Intake Total 950 ml 950 ml Balance 950 ml 950 ml Intake Oral 950 ml 950 ml # Voids 4 4 # Bowel Movements 2 2 General Appearance: no acute distress HEENT: atraumatic, anicteric Respiratory: lungs clear, normal breath sounds, no respiratory distress, no accessory muscle use Cardiovascular: normal rate, regular rhythm Abdomen: soft, non tender Microbiology Date/Time Source Procedure Growth Status 10/04/20 10:50 Nasopharynx Coronavirus COVID-19 PCR ([facility]) - Final Complete Laboratory Tests 10/07/20 06:42: White Blood Count 8.0, Red Blood Count 4.60, Hemoglobin 11.1L, Hematocrit 37.1, Mean Corpuscular Volume 81, Mean Corpuscular Hemoglobin 24.2L, Mean Corpuscular Hemoglobin Concent 30.1L, Red Cell Distribution Width 15.3H, Platelet Count 438, Mean Platelet Volume 6.3L, Neutrophils (%) (Auto) 66.2, Lymphocytes (%) (Auto) 23.2, Monocytes (%) (Auto) 8.5, Eosinophils (%) (Auto) 1.3, Basophils (%) (Auto) 0.9, Sodium Level 138, Potassium Level 3.8, Chloride Level 103, Carbon Dioxide Level 25, Anion Gap 10, Blood Urea Nitrogen 5L, Creatinine 0.9, Estimat Glomeru lar Filtration Rate > 60, Glucose Level 90, Calcium Level 9.6 Current Medications Medications (Trade) Dose Ordered Sig/Billy Route PRN Reason Start Time Stop Time Status Last Admin Dose Admin Acetaminophen (Tylenol) 650 mg Q4H PRN ORAL Mild Pain (Pain Scale 1-3) 10/02/20 22:45 11/01/20 22:44 10/05/20 18:08 Acetaminophen (Tylenol) 650 mg Q4H PRN ORAL Temp >100.5 10/02/20 22:45 11/01/20 22:44 Acetaminophen/ Hydrocodone Bitart ([place] 5/325) 1 tab Q6H PRN ORAL For Pain 10/02/20 23:00 10/09/20 22:59 10/07/20 05:00 Carbamide Peroxide (Debrox) 5 drop EVERY 12 HOURS BOTH EARS 10/05/20 21:00 11/02/20 08:59 10/06/20 20:49 Dextrose/ Electrolytes 1,000 ml @ 75 mls/hr [id number] IV 10/03/20 17:00 11/02/20 16:59 10/07/20 02:17 Docusate Sodium (Colace) 100 mg EVERY 8 HOURS ORAL 10/05/20 14:00 11/02/20 17:59 10/07/20 05:41 Escitalopram Oxalate (Lexapro) 10 mg DAILY ORAL 10/03/20 09:00 11/02/20 08:59 10/06/20 08:39 Famotidine (Pepcid) 20 mg BID ORAL 10/03/20 18:00 01/01/21 17:59 10/06/20 17:29 Guaifenesin (Robitussin) 200 mg Q4H PRN ORAL For Cough 10/02/20 23:15 12/31/20 22:59 Iron Sucrose 100 mg/Sodium Chloride 60 ml @ 240 mls/hr BEDTIME IVPB 10/05/20 21:00 10/09/20 21:14 10/06/20 20:51 Lactulose (Cephulac) 20 gm EVERY 12 HOURS ORAL 10/05/20 21:00 11/02/20 08:59 10/06/20 20:51 Rivaroxaban (Xarelto) 15 mg DAILY ORAL 10/27/20 09:00 01/25/21 08:59 Rivaroxaban (Xarelto) 15 mg Q12HR ORAL 10/05/20 21:00 10/26/20 23:59 10/06/20 20:51 Simethicone (Mylicon) 80 mg Q8H PRN ORAL GAS PAIN 10/02/20 23:00 12/31/20 22:59 Sodium Phosphate (Fleet's Sodium Phosl Enema) 133 ml DAILY PRN RECTAL Constipation 10/02/20 23:15 11/02/20 08:59 Assessment/Plan Assessment/Plan 1. Pulmonary embolus - Provide supplemental oxygen as needed - now on Xarelto 15 mg PO BID; will dc Lovenox per pharmacy recs - hold off hypercoag w/u, per Heme onc - f/u D-dimer ordered (10/05) per Dr. Johnson 2. Infiltrates vs atelectasis - COVID-19 Ag negative (10/02) - COVID-19 PCR negative (10/02) - 2nd COVID-19 PCR negative (10/03) -> off isolation - s/p Abx per ID - CXR (10/03) slightly improved infiltrates 3. Hypertension - BP control Medically stable for discharge from pulmonary standpoint The care for this patient was discussed with my supervising physician. Time spent for this case was approximately 31 minutes. Christopher Ho Oct 07, 2020 09:09
--- NOTE | 2020-10-07 09:11 | General Progress Note ---
Subjective Constitutional: Reports: weakness Allergies: Coded Allergies: No Known Allergies (Verified Allergy, Mild, 01/17/09) All Systems: reviewed and negative except above Subjective calm Objective Last 24 Hour Vital Signs Date Time Temp Pulse Resp B/P (MAP) Pulse Ox O2 Delivery O2 Flow Rate FiO2 10/07/20 04:00 84 10/07/20 04:00 98.1 84 18 132/90 (104) 97 10/07/20 00:00 98.4 70 18 141/73 (95) 97 10/06/20 21:00 Room Air 10/06/20 20:00 95 10/06/20 20:00 98.6 74 18 145/80 (101) 97 10/06/20 16:00 93 10/06/20 16:00 98.2 78 18 135/72 (93) 97 10/06/20 12:00 95 10/06/20 12:00 98.4 70 18 140/88 (105) 98 Intake and Output 10/06/20 10/07/20 19:00 07:00 Intake Total 950 ml 950 ml Balance 950 ml 950 ml Intake Oral 950 ml 950 ml # Voids 4 4 # Bowel Movements 2 2 Laboratory Tests 10/07/20 06:42: White Blood Count 8.0, Red Blood Count 4.60, Hemoglobin 11.1L, Hematocrit 37.1, Mean Corpuscular Volume 81, Mean Corpuscular Hemoglobin 24.2L, Mean Corpuscular Hemoglobin Concent 30.1L, Red Cell Distribution Width 15.3H, Platelet Count 438, Mean Platelet Volume 6.3L, Neutrophils (%) (Auto) 66.2, Lymphocytes (%) (Auto) 23.2, Monocytes (%) (Auto) 8.5, Eosinophils (%) (Auto) 1.3, Basophils (%) (Auto) 0.9, Sodium Level 138, Potassium Level 3.8, Chloride Level 103, Carbon Dioxide Level 25, Anion Gap 10, Blood Urea Nitrogen 5L, Creatinine 0.9, Estimat Glomerular Filtration Rate > 60, Glucose Level 90, Calcium Level 9.6 Height (Feet): 5 Height (Inches): 7.00 Weight (Pounds): 1986 General Appearance: alert EENT: normal ENT inspection Neck: normal alignment Cardiovascular: normal peripheral pulses, normal rate, regular rhythm Respiratory/Chest: chest wall non-tender, lungs clear, normal breath sounds Abdomen: normal bowel sounds, non tender, soft Extremities: normal inspection Edema: no edema noted Arm (L), no edema noted Arm (R), no edema noted Leg (L), no edema noted Leg (R), no edema noted Pedal (L), no edema noted Pedal (R), no edema noted Generalized Neurologic: responsive, motor weakness Skin: normal pigmentation, warm/dry Assessment/Plan Problem List: (1) UTI (urinary tract infection) ICD Codes: N39.0 - Urinary tract infection, site not specified SNOMED: 68646341 (2) Anemia ICD Codes: D64.9 - Anemia, unspecified SNOMED: 503962739 (3) HTN (hypertension) ICD Codes: I10 - Essential (primary) hypertension SNOMED: 78490703 (4) Pulmonary embolism ICD Codes: I26.99 - Other pulmonary embolism without acute cor pulmonale SNOMED: 00554673 (5) Pneumonia ICD Codes: J18.9 - Pneumonia, unspecified organism SNOMED: 407377151 Status: stable, progressing Assessment/Plan: o2 pulm tx abx antocoag dc if clear Lee Johnson DO Oct 07, 2020 09:11
[2020-10-07] MEDS: Lactulose 20gm/30ml UDC ORAL SCH (09:19)
[2020-10-07] MEDS: Xarelto 15mg tab ORAL SCH (09:19)
[2020-10-07] MEDS: Carbamide Peroxide 6.5% Ot Sol 15ML BOTH EARS SCH (09:28)
--- NOTE | 2020-10-07 10:46 | NUR ---
NURSE NOTES: Notified via phone by Dr Hobbs that pt is cleared for discharge. No new medications at this time.
--- NOTE | 2020-10-07 11:20 | NUR ---
NURSE NOTES: Spoke with Dr. Turpin covering for Dr Guevara Tanner; per Dr Turpin, pt is cleared for discharge with no antibiotics.
[2020-10-07] MEDS ORDERED: XARELTO15 MG ORAL ×2 (11:38)
[2020-10-07] MEDS ORDERED: HYDROCODON-ACE1 EA15 ORAL (11:38)
[2020-10-07] MEDS ORDERED: ACETAMINOPHEN325 M1 ORAL (11:38)
[2020-10-07] MEDS ORDERED: LEXAPRO10 MG ORAL (11:38)
--- NOTE | 2020-10-07 11:39 | Hematology/Onc Progress Note ---
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 -> anemia panel has been ordered->reviewed, ferritin 6 --> hgb 10-->8-->9.6-->11.1 --> iv iron x 5 days started --> transfuse prn --> true Rn # Infiltrates vs atelectasis --> COVID-19 antigen negative (10/02) --> repeat COVID-19 PCR ordered (10/02) # Hypertension --> BP control # Dvt ppx lovenox bid Appreciate consultation and true [place] Subjective HEENT: Denies: no symptoms, eye pain, blurred vision, tearing, double vision, ear pain, ear discharge, nose pain, nose congestion, throat pain, throat swelling, mouth pain, mouth swelling, other Cardiovascular: Denies: no symptoms, chest pain, edema, irregular heart rate, lightheadedness, palpitations, syncope, other Respiratory: Denies: no symptoms, cough, shortness of breath, SOB with excertion, SOB at rest, sputum, wheezing, other Gastrointestinal/Abdominal: Denies: no symptoms, abdomen distended, abdominal pain, black stools, tarry stools, blood in stool, constipated, diarrhea, difficulty swallowing, nausea, poor appetite, poor fluid intake, rectal bleeding, vomiting, other Genitourinary: Denies: no symptoms, burning, discharge, frequency, flank pain, hematuria, incontinence, pain, urgency, other Neurologic/Psychiatric: Denies: no symptoms, anxiety, depressed, emotional problems, headache, numbness, paresthesia, pre-existing deficit, seizure, tingling, tremors, weakness, other Endocrine: Denies: no symptoms, excessive sweating, flushing, intolerance to cold, intolerance to heat, increased hunger, increased thirst, increased urine, unexplained weight gain, unexplained weight loss, other Hematologic/Lymphatic: Denies: no symptoms, anemia, easy bleeding, easy bruising, adenopathy, other Allergies: Coded Allergies: No Known Allergies (Verified Allergy, Mild, 01/17/09) Subjective 10/03 responsive, on ra, is on iv iron now, hgb noted 10/04 labs reviewed, meds noted, h/h stable 10/05 no night sweats, dw rn, no bleeding, cbc noted 10/07 to dc today, have done med rec, labs reviewed Objective Objective Current Medications Medications (Trade) Dose Ordered Sig/Billy Route PRN Reason Start Time Stop Time Status Last Admin Dose Admin Acetaminophen (Tylenol) 650 mg Q4H PRN ORAL Mild Pain (Pain Scale 1-3) 10/02/20 22:45 11/01/20 22:44 10/05/20 18:08 Acetaminophen (Tylenol) 650 mg Q4H PRN ORAL Temp >100.5 10/02/20 22:45 11/01/20 22:44 Acetaminophen/ Hydrocodone Bitart ([place] 5/325) 1 tab Q6H PRN ORAL For Pain 10/02/20 23:00 10/09/20 22:59 10/07/20 05:00 Carbamide Peroxide (Debrox) 5 drop EVERY 12 HOURS BOTH EARS 10/05/20 21:00 11/02/20 08:59 10/07/20 09:28 Dextrose/ Electrolytes 1,000 ml @ 75 mls/hr [id number] IV 10/03/20 17:00 11/02/20 16:59 10/07/20 02:17 Docusate Sodium (Colace) 100 mg EVERY 8 HOURS ORAL 10/05/20 14:00 11/02/20 17:59 10/07/20 05:41 Escitalopram Oxalate (Lexapro) 10 mg DAILY ORAL 10/03/20 09:00 11/02/20 08:59 10/07/20 09:19 Famotidine (Pepcid) 20 mg BID ORAL 10/03/20 18:00 01/01/21 17:59 10/07/20 09:19 Guaifenesin (Robitussin) 200 mg Q4H PRN ORAL For Cough 10/02/20 23:15 12/31/20 22:59 Iron Sucrose 100 mg/Sodium Chloride 60 ml @ 240 mls/hr BEDTIME IVPB 10/05/20 21:00 10/09/20 21:14 10/06/20 20:51 Lactulose (Cephulac) 20 gm EVERY 12 HOURS ORAL 10/05/20 21:00 11/02/20 08:59 10/07/20 09:19 Rivaroxaban (Xarelto) 15 mg DAILY ORAL 10/27/20 09:00 01/25/21 08:59 Rivaroxaban (Xarelto) 15 mg Q12HR ORAL 10/05/20 21:00 10/26/20 23:59 10/07/20 09:19 Simethicone (Mylicon) 80 mg Q8H PRN ORAL GAS PAIN 10/02/20 23:00 12/31/20 22:59 Sodium Phosphate (Fleet's Sodium Phosl Enema) 133 ml DAILY PRN RECTAL Constipation 10/02/20 23:15 11/02/20 08:59 Last 24 Hour Vital Signs Date Time Temp Pulse Resp B/P (MAP) Pulse Ox O2 Delivery O2 Flow Rate FiO2 10/07/20 09:00 Room Air 10/07/20 08:00 94 10/07/20 08:00 98.0 100 18 132/94 (107) 97 10/07/20 04:00 84 10/07/20 04:00 98.1 84 18 132/90 (104) 97 10/07/20 00:00 98.4 70 18 141/73 (95) 97 10/06/20 21:00 Room Air 10/06/20 20:00 95 10/06/20 20:00 98.6 74 18 145/80 (101) 97 10/06/20 16:00 93 10/06/20 16:00 98.2 78 18 135/72 (93) 97 10/06/20 12:00 95 10/06/20 12:00 98.4 70 18 140/88 (105) 98 10/06/20 09:00 Room Air 10/06/20 08:00 98.2 75 18 125/80 (95) 98 10/06/20 08:00 103 10/06/20 04:00 98.0 77 18 127/82 (97) 97 10/06/20 04:00 87 10/06/20 00:00 98.2 83 18 131/90 (104) 96 10/05/20 21:00 Room Air 10/05/20 20:00 99.5 86 18 136/97 (110) 98 2/26/21 20:00 95 10/05/20 16:00 98.2 93 20 144/84 (104) 98 10/05/20 16:00 98 10/05/20 12:00 98.1 85 20 127/86 (100) 98 10/05/20 12:00 94 Intake and Output 10/06/20 10/07/20 19:00 07:00 Intake Total 950 ml 950 ml Balance 950 ml 950 ml Intake Oral 950 ml 950 ml # Voids 4 4 # Bowel Movements 2 2 Labs Test 10/05/20 06:06 10/05/20 09:00 10/06/20 07:10 10/07/20 06:42 White Blood Count 7.6 K/UL (4.8-10.8) 6.4 K/UL (4.8-10.8) 8.0 K/UL (4.8-10.8) Red Blood Count 4.06 M/UL (4.20-5.40) 4.22 M/UL (4.20-5.40) 4.60 M/UL (4.20-5.40) Hemoglobin 9.6 G/DL (12.0-16.0) 10.0 G/DL (12.0-16.0) 11.1 G/DL (12.0-16.0) Hematocrit 32.4 % (37.0-47.0) 33.9 % (37.0-47.0) 37.1 % (37.0-47.0) Mean Corpuscular Volume 80 FL (80-99) 80 FL (80-99) 81 FL (80-99) Mean Corpuscular Hemoglobin 23.5 PG (27.0-31.0) 23.8 PG (27.0-31.0) 24.2 PG (27.0-31.0) Mean Corpuscular Hemoglobin Concent 29.5 G/DL (32.0-36.0) 29.6 G/DL (32.0-36.0) 30.1 G/DL (32.0-36.0) Red Cell Distribution Width 14.6 % (11.6-14.8) 15.2 % (11.6-14.8) 15.3 % (11.6-14.8) Platelet Count 421 K/UL (150-450) 445 K/UL (150-450) 438 K/UL (150-450) Mean Platelet Volume 6.6 FL (6.5-10.1) 6.5 FL (6.5-10.1) 6.3 FL (6.5-10.1) Neutrophils (%) (Auto) 69.4 % (45.0-75.0) 64.3 % (45.0-75.0) 66.2 % (45.0-75.0) Lymphocytes (%) (Auto) 19.4 % (20.0-45.0) 24.5 % (20.0-45.0) 23.2 % (20.0-45.0) Monocytes (%) (Auto) 8.9 % (1.0-10.0) 9.6 % (1.0-10.0) 8.5 % (1.0-10.0) Eosinophils (%) (Auto) 1.1 % (0.0-3.0) 1.0 % (0.0-3.0) 1.3 % (0.0-3.0) Basophils (%) (Auto) 1.3 % (0.0-2.0) 0.6 % (0.0-2.0) 0.9 % (0.0-2.0) Sodium Level 139 MMOL/L (136-145) 138 MMOL/L (136-145) 138 MMOL/L (136-145) Potassium Level 3.7 MMOL/L (3.5-5.1) 4.0 MMOL/L (3.5-5.1) 3.8 MMOL/L (3.5-5.1) Chloride Level 107 MMOL/L (98-107) 105 MMOL/L (98-107) 103 MMOL/L (98-107) Carbon Dioxide Level 24 MMOL/L (21-32) 25 MMOL/L (21-32) 25 MMOL/L (21-32) Anion Gap 8 mmol/L (5-15) 8 mmol/L (5-15) 10 mmol/L (5-15) Blood Urea Nitrogen 7 mg/dL (7-18) 6 mg/dL (7-18) 5 mg/dL (7-18) Creatinine 0.7 MG/DL (0.55-1.30) 0.9 MG/DL (0.55-1.30) 0.9 MG/DL (0.55-1.30) Estimat Glomerular Filtration Rate > 60 mL/min (>60) > 60 mL/min (>60) > 60 mL/min (>60) Glucose Level 95 MG/DL (74-106) 91 MG/DL (74-106) 90 MG/DL (74-106) Calcium Level 8.8 MG/DL (8.5-10.1) 9.3 MG/DL (8.5-10.1) 9.6 MG/DL (8.5-10.1) Phosphorus Level 3.3 MG/DL (2.5-4.9) Magnesium Level 2.1 MG/DL (1.8-2.4) D-Dimer 1.24 mg/L FEU (0.00-0.49) Total Bilirubin 0.2 MG/DL (0.2-1.0) Aspartate Amino Transf (AST/SGOT) 13 U/L (15-37) Alanine Aminotransferase (ALT/SGPT) 18 U/L (12-78) Alkaline Phosphatase 85 U/L (46-116) Total Protein 7.7 G/DL (6.4-8.2) Albumin 2.9 G/DL (3.4-5.0) Globulin 4.8 g/dL Albumin/Globulin Ratio 0.6 (1.0-2.7) Height (Feet): 5 Height (Inches): 7.00 Weight (Pounds): 1986 Objective PHYSICAL EXAMINATION: VITAL SIGNS:reviewed General: Patient laying in bed, NAD, normal work of breathing on room air HEENT: Head exam reveals that the head is normocephalic, atraumatic without deformity or unusual swelling. Pupils are PERRLA. CHEST AND LUNGS: Reveals clear, normal, symmetrical breath sounds with no adventitious sounds. CARDIOVASCULAR: Reveals normal S1, S2 without murmurs, rubs, or clicks. ABDOMEN: Soft with no tenderness or organomegaly. RECTAL: Deferred. MUSCULOSKELETAL: There is no tenderness to palpation. Range of motion is normal. NEUROLOGICAL: Alert and oriented x3 , nonfocal Reji Hobbs MD Oct 07, 2020 11:39
[2020-10-07 12:00] VITALS: BP 128/85
--- NOTE | 2020-10-07 13:09 | Nephrology Progress Note ---
Assessment/Plan Problem List: (1) Iron deficiency anemia (2) Electrolyte imbalance (3) Pulmonary embolism (4) Pneumonia Assessment Hypokalemia pneumonia Pulmonary embolism Fever Hypertension Iron deficiency anemia Plan October 07: Labs reviewed. Not much to add from renal standpoint of view. Continue per current management. October 06: Renal parameters stable. Hemoglobin higher. Continue per current management. October 05: Labs reviewed. Renal parameters stable. Hemoglobin higher. Continue per consultants. October 04: IV iron started. Low potassium and low phosphorus addressed. Continue per consultants. Medication list reviewed. Previously: IV fluid with potassium supplement Keep the blood pressure in check Continue per consultants Subjective ROS Limited/Unobtainable: No Constitutional: Reports: malaise Objective Objective Last 24 Hour Vital Signs Date Time Temp Pulse Resp B/P (MAP) Pulse Ox O2 Delivery O2 Flow Rate FiO2 10/07/20 09:00 Room Air 10/07/20 08:00 94 10/07/20 08:00 98.0 100 18 132/94 (107) 97 10/07/20 04:00 84 10/07/20 04:00 98.1 84 18 132/90 (104) 97 10/07/20 00:00 98.4 70 18 141/73 (95) 97 10/06/20 21:00 Room Air 10/06/20 20:00 95 10/06/20 20:00 98.6 74 18 145/80 (101) 97 10/06/20 16:00 93 10/06/20 16:00 98.2 78 18 135/72 (93) 97 Intake and Output 10/06/20 10/07/20 19:00 07:00 Intake Total 950 ml 950 ml Balance 950 ml 950 ml Intake Oral 950 ml 950 ml # Voids 4 4 # Bowel Movements 2 2 Current Medications Medications (Trade) Dose Ordered Sig/Billy Route PRN Reason Start Time Stop Time Status Last Admin Dose Admin Acetaminophen (Tylenol) 650 mg Q4H PRN ORAL Mild Pain (Pain Scale 1-3) 10/02/20 22:45 11/01/20 22:44 10/05/20 18:08 Acetaminophen (Tylenol) 650 mg Q4H PRN ORAL Temp >100.5 10/02/20 22:45 11/01/20 22:44 Acetaminophen/ Hydrocodone Bitart ([place] 5/325) 1 tab Q6H PRN ORAL For Pain 10/02/20 23:00 10/09/20 22:59 10/07/20 05:00 Carbamide Peroxide (Debrox) 5 drop EVERY 12 HOURS BOTH EARS 10/05/20 21:00 11/02/20 08:59 10/07/20 09:28 Dextrose/ Electrolytes 1,000 ml @ 75 mls/hr [id number] IV 10/03/20 17:00 11/02/20 16:59 10/07/20 02:17 Docusate Sodium (Colace) 100 mg EVERY 8 HOURS ORAL 10/05/20 14:00 11/02/20 17:59 10/07/20 05:41 Escitalopram Oxalate (Lexapro) 10 mg DAILY ORAL 10/03/20 09:00 11/02/20 08:59 10/07/20 09:19 Famotidine (Pepcid) 20 mg BID ORAL 10/03/20 18:00 01/01/21 17:59 10/07/20 09:19 Guaifenesin (Robitussin) 200 mg Q4H PRN ORAL For Cough 10/02/20 23:15 12/31/20 22:59 Iron Sucrose 100 mg/Sodium Chloride 60 ml @ 240 mls/hr BEDTIME IVPB 10/05/20 21:00 10/09/20 21:14 10/06/20 20:51 Lactulose (Cephulac) 20 gm EVERY 12 HOURS ORAL 10/05/20 21:00 11/02/20 08:59 10/07/20 09:19 Rivaroxaban (Xarelto) 15 mg DAILY ORAL 10/27/20 09:00 01/25/21 08:59 Rivaroxaban (Xarelto) 15 mg Q12HR ORAL 10/05/20 21:00 10/26/20 23:59 10/07/20 09:19 Simethicone (Mylicon) 80 mg Q8H PRN ORAL GAS PAIN 10/02/20 23:00 12/31/20 22:59 Sodium Phosphate (Fleet's Sodium Phosl Enema) 133 ml DAILY PRN RECTAL Constipation 10/02/20 23:15 11/02/20 08:59 Laboratory Tests 10/07/20 06:42: White Blood Count 8.0, Red Blood Count 4.60, Hemoglobin 11.1L, Hematocrit 37.1, Mean Corpuscular Volume 81, Mean Corpuscular Hemoglobin 24.2L, Mean Corpuscular Hemoglobin Concent 30.1L, Red Cell Distribution Width 15.3H, Platelet Count 438, Mean Platelet Volume 6.3L, Neutrophils (%) (Auto) 66.2, Lymphocytes (%) (Auto) 23.2, Monocytes (%) (Auto) 8.5, Eosinophils (%) (Auto) 1.3, Basophils (%) (Auto) 0.9, Sodium Level 138, Potassium Level 3.8, Chloride Level 103, Carbon Dioxide Level 25, Anion Gap 10, Blood Urea Nitrogen 5L, Creatinine 0.9, Estimat Glomerular Filtration Rate > 60, Glucose Level 90, Calcium Level 9.6 Height (Feet): 5 Height (Inches): 7.00 Weight (Pounds): 1986 General Appearance: no apparent distress Cardiovascular: tachycardia Respiratory/Chest: decreased breath sounds Abdomen: soft Iraj Tim MD Oct 07, 2020 13:09
--- NOTE | 2020-10-07 13:48 | NUR ---
NURSE NOTES: pt is d/c home at this time. prior discharge, pt is provided with discharge teaching and instructions. educated pt on medications and side effects; pt verbalizes understanding. pt denies any chest pain and discomfort. respiration is even and unlabored on room air. IV line removed, ID band removed. pt is escorted to the lobby and went home via an Uber lift.
--- NOTE | 2020-10-07 14:12 | Infectious Diseases Prog Note ---
Assessment/Plan 44 yo female with PMHx of HTN who presented to the ED on 10/02/20 with SOB. The patient reports SOB with abd pain for the last few days. PNA R/O COVID 19 COVID 19 Ag Neg 10/02/20 Sars COV2 PCR 10/02/20 - Neg Fever- SP No leukocytosis PE - Fam Hx of coagulopathy CTA 10/02/20 - STUDY POSITIVE FOR PULMONARY EMBOLUS IN A SUBSEGMENTAL BRANCH OF THE LEFT LOWER LOBE. DEPENDENT INFILTRATES LEFT LUNG BASE WITH TINY LEFT EFFUSION. ALSO MILD INFLAMMATORY CHANGES POSTERIOR RIGHT LUNG BASE. HTN PLAN -Continue to monitor off abx - 10/05/20 Azithromycin #3/3 and Ceftriaxone #3/3 - f/u 2nd SARS COV 2 PCR - Monitor Resp status - Monitor CBC and Temps -ok to dc home off antibiotics Thank you for this consult. [facility] will continue to follow Ms. Prieto while she is hospitalized Subjective Allergies: Coded Allergies: No Known Allergies (Verified Allergy, Mild, 01/17/09) afebrile at RA no leukocytosis Objective Last 24 Hour Vital Signs Date Time Temp Pulse Resp B/P (MAP) Pulse Ox O2 Delivery O2 Flow Rate FiO2 10/07/20 12:00 98.1 102 18 128/85 (99) 97 10/07/20 12:00 112 10/07/20 09:00 Room Air 10/07/20 08:00 94 10/07/20 08:00 98.0 100 18 132/94 (107) 97 10/07/20 04:00 84 10/07/20 04:00 98.1 84 18 132/90 (104) 97 10/07/20 00:00 98.4 70 18 141/73 (95) 97 10/06/20 21:00 Room Air 10/06/20 20:00 95 10/06/20 20:00 98.6 74 18 145/80 (101) 97 10/06/20 16:00 93 10/06/20 16:00 98.2 78 18 135/72 (93) 97 Height (Feet): 5 Height (Inches): 7.00 Weight (Pounds): 1986 Laboratory Tests Test 10/07/20 06:42 White Blood Count 8.0 K/UL (4.8-10.8) Red Blood Count 4.60 M/UL (4.20-5.40) Hemoglobin 11.1 G/DL (12.0-16.0) L Hematocrit 37.1 % (37.0-47.0) Mean Corpuscular Volume 81 FL (80-99) Mean Corpuscular Hemoglobin 24.2 PG (27.0-31.0) L Mean Corpuscular Hemoglobin Concent 30.1 G/DL (32.0-36.0) L Red Cell Distribution Width 15.3 % (11.6-14.8) H Platelet Count 438 K/UL (150-450) Mean Platelet Volume 6.3 FL (6.5-10.1) L Neutrophils (%) (Auto) 66.2 % (45.0-75.0) Lymphocytes (%) (Auto) 23.2 % (20.0-45.0) Monocytes (%) (Auto) 8.5 % (1.0-10.0) Eosinophils (%) (Auto) 1.3 % (0.0-3.0) Basophils (%) (Auto) 0.9 % (0.0-2.0) Sodium Level 138 MMOL/L (136-145) Potassium Level 3.8 MMOL/L (3.5-5.1) Chloride Level 103 MMOL/L (98-107) Carbon Dioxide Level 25 MMOL/L (21-32) Anion Gap 10 mmol/L (5-15) Blood Urea Nitrogen 5 mg/dL (7-18) L Creatinine 0.9 MG/DL (0.55-1.30) Estimat Glomerular Filtration Rate > 60 mL/min (>60) Glucose Level 90 MG/DL (74-106) Calcium Level 9.6 MG/DL (8.5-10.1) Current Medications Medications (Trade) Dose Ordered Sig/Billy Route PRN Reason Start Time Stop Time Status Last Admin Dose Admin Acetaminophen (Tylenol) 650 mg Q4H PRN ORAL Mild Pain (Pain Scale 1-3) 10/02/20 22:45 11/01/20 22:44 10/05/20 18:08 Acetaminophen (Tylenol) 650 mg Q4H PRN ORAL Temp >100.5 10/02/20 22:45 11/01/20 22:44 Acetaminophen/ Hydrocodone Bitart ([place] 5/325) 1 tab Q6H PRN ORAL For Pain 10/02/20 23:00 10/09/20 22:59 10/07/20 05:00 Carbamide Peroxide (Debrox) 5 drop EVERY 12 HOURS BOTH EARS 10/05/20 21:00 11/02/20 08:59 10/07/20 09:28 Dextrose/ Electrolytes 1,000 ml @ 75 mls/hr [id number] IV 10/03/20 17:00 11/02/20 16:59 10/07/20 02:17 Docusate Sodium (Colace) 100 mg EVERY 8 HOURS ORAL 10/05/20 14:00 11/02/20 17:59 10/07/20 05:41 Escitalopram Oxalate (Lexapro) 10 mg DAILY ORAL 10/03/20 09:00 11/02/20 08:59 10/07/20 09:19 Famotidine (Pepcid) 20 mg BID ORAL 10/03/20 18:00 01/01/21 17:59 10/07/20 09:19 Guaifenesin (Robitussin) 200 mg Q4H PRN ORAL For Cough 10/02/20 23:15 12/31/20 22:59 Iron Sucrose 100 mg/Sodium Chloride 60 ml @ 240 mls/hr BEDTIME IVPB 10/05/20 21:00 10/09/20 21:14 10/06/20 20:51 Lactulose (Cephulac) 20 gm EVERY 12 HOURS ORAL 10/05/20 21:00 11/02/20 08:59 10/07/20 09:19 Rivaroxaban (Xarelto) 15 mg DAILY ORAL 10/27/20 09:00 01/25/21 08:59 Rivaroxaban (Xarelto) 15 mg Q12HR ORAL 10/05/20 21:00 10/26/20 23:59 10/07/20 09:19 Simethicone (Mylicon) 80 mg Q8H PRN ORAL GAS PAIN 10/02/20 23:00 12/31/20 22:59 Sodium Phosphate (Fleet's Sodium Phosl Enema) 133 ml DAILY PRN RECTAL Constipation 10/02/20 23:15 11/02/20 08:59 Lata Turpin M.D. Oct 07, 2020 14:11
--- NOTE | 2020-10-08 12:14 | Discharge Summary ---
Discharge Summary Discharge Summary _ Date of admission: 10/02/2020 Date of discharge: 10/07/[address] Johnson History of Present Illness and Brief Hospital Course Ms. Tripp is a 44-year-old female with past medical history of hypertension who presented to the ED for evaluation of respiratory distress x3 days. Patient tested negative for COVID-19 via rapid antigen test. Chest x-ray demonstrated mild hazy atelectasis versus infiltrates in the lung bases. CT angio of the chest was positive for pulmonary embolus in the subsegmental branch of the left lower lobe with dependent infiltrates in the left lung base with tiny left effusion. Patient was started on weight-based full dose Lovenox. Patient also received broad-spectrum antibiotics in ER and was admitted to the hospital for further management. Patient was continued on antibiotics for coverage of pneumonia. A follow-up chest x-ray revealed slightly improved infiltrates. The repeat COVID-19 PCR was negative. She was also found to be anemic with iron deficiency. Patient was started on IV iron. She was started on Xarelto and Lovenox was discontinued. Patient remained stable on room air. Patient reported smoking history and was educated on smok ing cessation. Patient was medically stable for discharge and was discharged home on 10/07/2020. Patient was discharged with prescription for Xarelto. Of note, we were called by the pharmacy stating that patient is without insurance and could not afford Xarelto or Eliquis. Patient was instructed to follow-up with Dr. Hobbs at his office for free samples of Xarelto. Consultants: Hematology oncology Dr. Perry Infectious disease Dr. Tanner Pulmonology Dr. Rodney Nephrology Dr. Edwards Discharge Condition Improved and stable Discharge Activity Ambulation Discharge Diet Low-sodium diet Final diagnoses Pulmonary embolus Iron deficiency anemia Pneumonia Hypertension Electrolyte imbalance Current smoker I have been assigned to dictate discharge summary for this account. Christopher Ho Oct 08, 2020 12:14
[2020-10-27] MEDS ORDERED: Xarelto 15mg tab ORAL SCH (09:00)
== END 2020-10-07 13:45 | disposition home or self-care (01) | DRG 134 ==
LOC: EMR 09:39 → EDBEDREQ 14:25 → 2E 15:02 → EDBEDREQ 18:39
DX: I26.99 Other pulmonary embolism without acute cor pulmonale (principal); J18.9 Pneumonia, unspecified organism; I10 Essential (primary) hypertension; J98.11 Atelectasis; E87.6 Hypokalemia; D50.9 Iron deficiency anemia, unspecified; N39.0 Urinary tract infection, site not specified; F17.200 Nicotine dependence, unspecified, uncomplicated; Z20.822 Contact with and (suspected) exposure to COVID-19
CPT/HCPCS: 36415; 71045; 71275; 80048; 80053; 80061; 80307; 81003; 82306; 82550; 82553; 82607; 82728; 82746; 82977; 83540; 83550; 83605; 83615; 83690; 83735; 83880; 84100; 84443; 84484; 84550; 85025; 85379; 85610; 85730; 86140; 87040; 93005; 96365; 96375; 99285; J7030

== ENCOUNTER 2020-11-04 12:04 | Emergency (ER) | payer MEDICAID ==
[~2020-11-04] VITALS: Ht 170.2 cm; Wt 81.6 kg
[~2020-11-04 12:04] MED LIST changes: +ACETAMINOPHEN325 M1 ORAL; +BANOPHEN50 MG PO; +ESCITALOPRAM OX20 MG ORAL; +HYDROCODON-ACE1 EA15 ORAL; +IBUPROFEN600 M1 ORAL; +IBUPROFEN800 M1 PO; +XARELTO15 MG ORAL
--- NOTE | 2020-11-04 12:19 | Emergency Room Report ---
History of Present Illness General Chief Complaint: To Be Triaged Source: Patient Present Illness HPI 44-year-old female with past medical history of iron deficiency anemia, HTN, PE on Xarelto (Dx 10/2020), fibroid, menorrhagia, presents emergency department with complaint of heavy menstrual bleeding x 3 days. Patient was just discharged from the hospital and placed on anticoagulation x 3 months for LLL PE. She went to her OB last week and underwent a cervical procedure (she thinks its an EMB but isnt sure) for her menorrhagia and was fine after her procedure. When she started her regularly scheduled menses on Thursday11/02/20 she started to bleed heavier than usual. States she has gone through 6 menstrual pads in the last 24 hrs. She endorses nausea and dizziness, but denies chest pain, shortness of breath, headache, cough, fever, chills, hemoptysis or any other symptoms. She has been compliant with her iron at home She is currently on her menses. Denies any abdominal trauma, melena, hematochezia, hematuria, dysuria. 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 She was last sexually active 2 yrs ago and is not concerned for STI Quality: Bright red Past medical history: Fibroids, pulmonary embolus; Iron deficiency anemia; Pneumonia; Hypertension Current smoker Past surgical history: EMB Smoking: Positive Alcohol use: Occasional Drug use: Denies Review of systems: CONST: No fevers or chills, No night sweats PULMONARY: No productive cough, No shortness of breath CARDIAC: No chest pain, No palpitations GI: No vomiting, No diarrhea , No melena_or_BRBPR : No dysuria, No hematuria, No discharge NEURO: No new_focal_weakness_or_numbness, No confusion, No vision changes 14 point Review of Systems is otherwise negative except per HPI Physical Exam: GENERAL: Awake_alert_ nontoxic, no acute distress Spo2 98% on RA -normal EYES: Extraocular muscles are intact. Conjunctivae clear. Lids without swelling ENT: External nose and ear normal_in_appearance. Oropharynx clear. Head_atraumatic, Moist_oral_mucosa NECK: No JVD. No meningismus. No thyromegaly. Supple. Trachea midline RESP: Normal respiratory effort. Symmetric rise. No stridor. Clear_to_auscultation_No_rales_No_wheezes CARDIAC: Regular rate and regular rhytm. No_significant pedal edema. ABDOMEN: Soft. Nondistended. Nontender_No_rebound_or_guarding. No pulsatile mass. Negative Marquez sign. Negative Rovsing sign. No CVA tenderness to palpation. : no vaginal DC. ++Menstrual bleeding. No hemorrhage. Os is closed and atraumatic. normal ext genitalia, no CMT, Chaperoned by AIDA Waterman staff MSK: Normal muscle tone, without rigidity. Extremities without asymmetric deformity or swelling. SKIN: Warm and dry. No visible cyanosis or pallor. No petechiae NEUROLOGIC: Alert, oriented x3. Motor_and_sensation_grossly_intact. No truncal ataxia. Gait_normal Psych: Normal mood and affect, normal judgment and insight - COORDINATION OF CARE Case was discussed with: Patient , Patient's Family Any labs and imaging that were ordered were interpreted as part of the medical decision making: Medical Decision Making/Plan: Differential diagnosis includes menses, ectopic , hemorrhagic ovarian cyst, threatened , fibroids, severe anemia, dysfunctional uterine bleeding, vaginal / uterine mass, among others. test is NEGATIVE ruling out ectopic , or threatened / inevitable . The patients presentation is not consistent with hemorrhagic ovarian cyst, and has no significant tenderness on exam. Patients hemoglobin is not severely low, vitals are hemodynamically stable, and no symptoms of severe anemia (near syncope, severe fatigue), no indication for blood transfusion at this time. The patient appears stable for discharge home and follow with PMD in 2-3 days for reevaluation and further treatment. She will follow up with her OB as scheduled this Thursday (3 days) for vaginal bleeding. She has a mild UTI. Firs t abx given in ED. Will DC w Keflex. Return precautions given for UCx. Allergies: Coded Allergies: No Known Allergies (Verified Allergy, Mild, 01/17/09) COVID-19 Screening Contact w/high risk pt: No Experienced COVID-19 symptoms?: Yes Nursing Documentation-PMH Hx Hypertension: Yes Hx Cancer: No Hx Gastrointestinal Problems: Yes Hx Neurological Problems: No Physical Exam Sp02 EP Interpretation: reviewed, normal Medical Decision Making Diagnostic Impression: Primary Impression: Vaginal bleeding Additional Impressions: Iron deficiency anemia Fibroid UTI (urinary tract infection) EKG Diagnostic Results Troponin ordered: Yes MEIR Ho 12-lead EKG (interpreted by me) Time: 1355 Indication: Rhythm analysis Tracing visualized and Interpreted by me. Rhythm: Normal sinus rhythm Rate: 83 bpm QTc: 427 Morphology: No_significant_ST_elevations_or_depressions, No STEMI Impression: Normal_sinus_rhythm_without_significant_abnormality CT/MRI/US Diagnostic Results CT/MRI/US Diagnostic Results : Impression US Pelvis Transabdominal and Transvaginal, Complete COMPARISON: None FINDINGS: Uterus: Retroverted uterus, measuring approximately 10.3 x 5.9 x 5.5. Large uterine fibroid measuring 5.3 x 6.5 x 4.1 cm. Adjacent smaller calcified uterine fibroid and small fibroid measuring 1.5 x 1.0 x 1.6 cm. Endometrium is not discretely identified. Right ovary: Measures 3.3 x 2.1 x 2.6 cm. Normal appearance with normal color Doppler flow. Left ovary: Measures 3.7 x 1.9 x 2.2 cm. Normal appearance with normal color Doppler flow. Other: No free fluid. No adnexal mass. IMPRESSION: 1. Uterine fibroids. 2. No acute abnormality. Dictated By: Jasmyn Torres MD Reevaluation Time: 14:00 Status: improved Disposition: HOME, SELF-CARE Admit Decision Time: 12:40 Condition: Stable Scripts Cephalexin* (KEFLEX*) 500 Mg Capsule 500 MG ORAL EVERY 12 HOURS, #14 CAP 0 Refills Prov: Gala Hardy.O. 11/04/20 Docusate Sodium* (COLACE*) 100 Mg Capsule 100 MG ORAL THREE TIMES A DAY for 10 Days, #30 CAP Prov: Gala Hardy D.O. 11/04/20 Ondansetron Odt* (ZOFRAN ODT*) 4 Mg Tab.rapdis 4 MG BC EVERY 6 HOURS PRN for Nausea & Vomiting, #10 TAB 0 Refills Prov: Gala Hardy.O. 11/04/20 Ferrous Sulfate (Ferrous Sulfate) 325 Mg Tablet 1 TAB ORAL DAILY for 30 Days, #30 TAB 0 Refills Prov: Gala Hardy.O. 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 Follow-up with your [employer]NAGER OF [employer] as scheduled Take your iron. Eat high-fiber diet Follow-up with your doctor sooner if your condition requires a more timely clinical reevaluation. Return to the emergency department immediately if you feel that your condition is worsening or if you have any new or concerning symptoms. Review your discharge instructions and take any prescriptions given as instr ucted. You had a urine culture done to evaluate for specific types of bacteria associated with your urinary infection. You were given an antibiotic that should treat most bacteria that usually occur with a urinary infection, but there is always the possibility of antibiotic resistance. You will receive a telephone call if it is positive. If you do not receive a call, they are likely negative, but you should return to medical records to get your results to be sure, or have your primary doctor obtain them from our hospital, and especially if you are having persistent symptoms. If you are having persistent symptoms and are not able to get a hold of your culture results or your regular doctor you should return to the ER for a reevaluation. THE [facility] PROVIDES FREE OR LOW-COST HEALTH SERVICES TO PEOPLE WHO CAN SHOW PROOF THAT THEY LIVE IN [facility]. TO FIND MORE CLINICS PARTNERED WITH THE [facility] TO PROVIDE SERVICE, PLEASE CALL . Gala Hardy D.O. Nov 04, 2020 12:19
[2020-11-04 12:28] VITALS: BP 144/73
--- NOTE | 2020-11-04 12:29 | NUR ---
CAME TO ER COMPLAINTS SHE IS HAVING heavy mensturation she is on xeralta for pe denies any problem now no chest pain or shortness of breath waiting for md arnold
[2020-11-04] MEDS ORDERED: FEOSOL1 TAB ORAL (12:40)
--- NOTE | 2020-11-04 13:30 | NUR ---
pelvic ultrasound done waiting for lab results
[2020-11-04] MEDS ORDERED: ONDANSETRON ODT4 MG BC (13:58)
[2020-11-04] MEDS ORDERED: COLACE100 MG ORAL (13:58)
[2020-11-04 13:59] LABS: EOSINOPHILS % (AUTO) 0.5 % (0.0-3.0); HEMATOCRIT 34.1 % (37.0-47.0); HEMOGLOBIN 10.1 G/DL (12.0-16.0); LYMPHOCYTES % (AUTO) 30.1 % (20.0-45.0); MEAN CORPUSCULAR VOLUME 84 FL (80-99); MONOCYTES % (AUTO) 7.8 % (1.0-10.0); NEUTROPHILS % (AUTO) 60.6 % (45.0-75.0); PLATELET COUNT 234 K/UL (150-450); RED BLOOD COUNT 4.07 M/UL (4.20-5.40); RED CELL DISTRIBUTION WIDTH 17.6 % (11.6-14.8)
[2020-11-04 14:00] LABS: APPEARANCE,URINE CLOUDY; BILIRUBIN, URINE NEGATIVE (NEGATIVE); COLOR,URINE ORANGE; GLUCOSE, URINE (UA) NEGATIVE (NEGATIVE); KETONES,URINE 1+ (NEGATIVE); LEUKOCYTE ESTERASE ,URINE 2+ (NEGATIVE); NITRITE,URINE POSITIVE (NEGATIVE); PH,URINE 5 (4.5-8.0); PROTEIN,URINE 2+ (NEGATIVE); UROBILINOGEN,URINE NORMAL MG/DL (0.0-1.0)
--- NOTE | 2020-11-04 14:08 | Diagnostic Imaging Report ---
EXAM: US Pelvis Transabdominal and Transvaginal, Complete CLINICAL HISTORY: BLD TECHNIQUE: Real-time complete transabdominal and transvaginal pelvic ultrasound with image documentation. Transvaginal imaging was used for better evaluation of the endometrium and adnexa. COMPARISON: None FINDINGS: Uterus: Retroverted uterus, measuring approximately 10.3 x 5.9 x 5.5. Large uterine fibroid measuring 5.3 x 6.5 x 4.1 cm. Adjacent smaller calcified uterine fibroid and small fibroid measuring 1.5 x 1.0 x 1.6 cm. Endometrium is not discretely identified. Right ovary: Measures 3.3 x 2.1 x 2.6 cm. Normal appearance with normal color Doppler flow. Left ovary: Measures 3.7 x 1.9 x 2.2 cm. Normal appearance with normal color Doppler flow. Other: No free fluid. No adnexal mass. IMPRESSION: 1. Uterine fibroids. 2. No acute abnormality.
[2020-11-04 14:09] LABS: ANION GAP 9 mmol/L (5-15); BLOOD UREA NITROGEN 10 mg/dL (7-18); CALCIUM 8.6 MG/DL (8.5-10.1); CARBON DIOXIDE 26 MMOL/L (21-32); CHLORIDE 108 MMOL/L (98-107); CREATININE 0.8 MG/DL (0.55-1.30); POTASSIUM 3.8 MMOL/L (3.5-5.1); SODIUM 143 MMOL/L (136-145)
[2020-11-04] MEDS ORDERED: CEPHALEXIN500 MG ORAL (14:12)
[2020-11-04 14:14] LABS: ALANINE AMINOTRANSFERASE 19 U/L (12-78); ALBUMIN 3.3 G/DL (3.4-5.0); ALBUMIN/GLOBULIN RATIO 0.8 (1.0-2.7); ALKALINE PHOSPHATASE 80 U/L (46-116); ASPARTATE AMINO TRANSFERASE 15 U/L (15-37); BILIRUBIN,TOTAL 0.2 MG/DL (0.2-1.0)
[2020-11-04] MEDS ORDERED: Acetaminophen 500mg (ES) tab ORAL ONE (14:15)
[2020-11-04] MEDS ORDERED: Ketorolac 30mg Inj IV ONE (14:15)
[2020-11-04] MEDS ORDERED: cefTRIAXone 1 GM in NS 55 ML IVPB SCH (14:30)
--- NOTE | 2020-11-04 14:47 | NUR ---
discharged home with instruction and rx follow up with pmd
[2020-11-04 14:48] VITALS: BP 144/73
== END 2020-11-04 14:53 | disposition home or self-care (01) ==
LOC: EMR 12:36
DX: N93.9 Abnormal uterine and vaginal bleeding, unspecified (principal); D50.9 Iron deficiency anemia, unspecified; D21.9 Benign neoplasm of connective and other soft tissue, unspecified; N39.0 Urinary tract infection, site not specified; I10 Essential (primary) hypertension; Z86.711 Personal history of pulmonary embolism; F17.200 Nicotine dependence, unspecified, uncomplicated
CPT/HCPCS: 36415; 76830; 80053; 81003; 83690; 84484; 84702; 85025; 85610; 85730; 86850; 86900; 86901; 87086; 96361; 96365; 96375; J1885; J7030; Z7502; 99284